=== PATIENT | male | born 1935 | race Caucasian/White ===

== ENCOUNTER 2017-02-22 13:47 | Emergency (ER) | payer OTHER ==
[~2017-02-22] VITALS: Ht 190.5 cm; Wt 108.6 kg
[~2017-02-22 13:47] MED LIST: CRD4 PO; ONDA4TAB7 SL
[2017-02-22 13:52] VITALS: TEMP 36.9; Ht 190.5 cm; Wt 108.6 kg
[2017-02-22] MEDS ORDERED: LIDOCAINE/EPINEPHRINE 1% 20 ML VIAL INFIL ONE (15:00)
--- NOTE | 2017-02-22 15:00 | EMERGENCY ROOM VISIT NOTE ---
ED Visit Note First contact with patient: 14:29 I have seen and examined this patient with Juan Galarza and generally agree with the treatment plan as discussed. Problem List Medical Problems: (1) Cerebrovasc Disease Nos Status: Chronic (2) Chest pain Status: Resolved (3) Circulatory Disease Nos Status: Chronic (4) COPD (chronic obstructive pulmonary disease) Status: Chronic (5) Dyslipidemia Status: Chronic (6) Heart disease Status: Chronic (7) Hypertension Nos Status: Chronic (8) Old Myocardial Infarct Status: Resolved (9) Squamous cell carcinoma Status: Chronic (10) Stomach ulcer Status: Chronic (11) Umbilical Hernia W Obstr Status: Resolved Current/Historical Medications Scheduled Atenolol (Tenormin), 12.5 MG PO HS Doxazosin Mesylate (Cardura *), 8 MG PO HS Simvastatin (Zocor), 20 MG PO HS Scheduled PRN Ondansetron (Zofran Odt), 4 MG SL Q6H PRN for Nausea Allergies Coded Allergies: Aspirin (Verified Adverse Reaction, Intermediate, "GI UPSET/BLEED A LONG TIME AGO", 06/19/14) Vital Signs Date Time Temp Pulse Resp B/P Pulse Ox O2 Delivery O2 Flow Rate FiO2 02/22/17 13:52 36.9 59 20 120/69 95 Room Air Departure Information Referrals Hakeem Mclaughlin M.D. (PCP) Patient Instructions My [facility]
[2017-02-22] MEDS ORDERED: DOXA-10 PO (15:25)
[2017-02-22] MEDS ORDERED: [UNRECOGNIZED DRUG - CODE] OPB (15:25)
[2017-02-22] MEDS ORDERED: FLUT0.15 NAE (15:25)
[2017-02-22 16:36] VITALS: BP 120/60; PULSE 55; O2SAT 96
--- NOTE | 2017-02-22 16:53 | EMERGENCY ROOM VISIT NOTE ---
ED Visit Note First contact with patient: 14:29 CHIEF COMPLAINT: Right upper arm lacerations HISTORY OF PRESENT ILLNESS: Patient is a 81-year-old white male who presents to emergency department for evaluation of lacerations to his right upper arm. He was sitting on a bucket, when he lost his balance and fell backwards. He struck his arm on the concrete ground, causing the lacerations described below. He apparently went to his primary care doctor's office but they were unable to perform wound repair and thus sent him to the emergency department. Bleeding has been controlled. There is minimal discomfort. His tetanus is up- to-date. REVIEW OF SYSTEMS: Review of systems as per HPI. All other systems reviewed were negative. At least 6 systems reviewed. PMH: Electronic medical records are reviewed and summarized as above/below. See Problem List. SOCIAL HISTORY: Patient lives at home with his . PHYSICAL EXAM: Vital Signs: Reviewed Nurse's notes. CONSTITUTIONAL: Patient is a pleasant, well-appearing 81-year-old white male who is awake and alert and in no acute distress. INTEGUMENTARY: There are 2 large skin tear type lacerations on the medial aspect of the right upper arm over the biceps. Total repairable laceration length is 19 cm.The edges are gaping widely apart. There is no foreign material in the wound and it looks clean. There is no active bleeding. No deep structures such as tendons or nerves are seen in the base of the wound. EMERGENCY DEPARTMENT COURSE: The patient's wounds were prepped with Betadine and draped sterilely. 1% lidocaine with epinephrine was infiltrated for local block. When adequate anesthesia was obtained, the wounds were explored thoroughly there is no evidence for foreign body. He was irrigated copiously using normal saline solution, then repaired using 5-0 nylon sutures. Patient had a few other smaller skin tears which were debrided. Antibiotic ointment and a dressing were applied. The patient tolerated the procedure well. I do not suspect fracture. Problem List Medical Problems: (1) Cerebrovasc Disease Nos Status: Chronic (2) Chest pain Status: Resolved (3) Circulatory Disease Nos Status: Chronic (4) COPD (chronic obstructive pulmonary disease) Status: Chronic (5) Dyslipidemia Status: Chronic (6) Heart disease Status: Chronic (7) Hypertension Nos Status: Chronic (8) Old Myocardial Infarct Status: Resolved (9) Squamous cell carcinoma Status: Chronic (10) Stomach ulcer Status: Chronic (11) Umbilical Hernia W Obstr Status: Resolved Current/Historical Medications Scheduled Atenolol (Tenormin), 12.5 MG PO HS Doxazosin Mesylate (Doxazosin Mesylate), 8 MG PO HS Fluticasone Propionate (Nasal) (Flonase Allergy Relief), 2 SPRAYS RUTH DAILY Ofloxacin (Otic) (Floxin Otic), 1 DROP OPB HS Simvastatin (Zocor), 20 MG PO HS Allergies Coded Allergies: Aspirin (Verified Adverse Reaction, Intermediate, "GI UPSET/BLEED A LONG TIME AGO", 06/19/14) Vital Signs Date Time Temp Pulse Resp B/P Pulse Ox O2 Delivery O2 Flow Rate FiO2 02/22/17 16:36 55 18 120/60 96 Room Air 02/22/17 13:52 36.9 59 20 120/69 95 Room Air Departure Information Impression Primary Impression: Laceration of right upper arm Referrals Hakeem Mclaughlin M.D. (PCP) Patient Instructions My [facility] Additional Instructions Keep wound clean and dry. Do not allow any crusting or dried blood to accumulate on sutures. Clean gently with mild soap and water daily. Use an antibiotic ointment for 3-4 days, then let wound dry. Suture removal in 12-14 days. Return sooner for any signs of infection (increasing redness, swelling, drainage). Ice and elevate for swelling and pain. Tylenol 1000 mg every 6 hrs for pain.
[2017-02-22] MEDS ORDERED: SIMV20TA2 PO (21:34)
[2017-02-22] MEDS ORDERED: ATEN-173 PO (21:34)
== END 2017-02-22 16:58 | disposition home or self-care (01) ==
LOC: C.EDB 13:49 → C.EDD 16:58
DX: S41.112A Laceration without foreign body of left upper arm, initial encounter (principal); W01.0XXA Fall on same level from slipping, tripping and stumbling without subsequent striking against object, initial encounter; I10 Essential (primary) hypertension; E78.5 Hyperlipidemia, unspecified; J44.9 Chronic obstructive pulmonary disease, unspecified; I51.9 Heart disease, unspecified; I25.2 Old myocardial infarction; Z86.73 Personal history of transient ischemic attack (TIA), and cerebral infarction without residual deficits; Z87.19 Personal history of other diseases of the digestive system; Z79.899 Other long term (current) drug therapy; Z88.6 Allergy status to analgesic agent

== ENCOUNTER 2017-10-27 10:43 | Emergency (ER) | payer OTHER ==
[~2017-10-27] VITALS: Ht 190.5 cm; Wt 110.3 kg
[~2017-10-27 10:43] MED LIST changes: +ATEN-173 PO; -CRD4 PO; +DOXA-10 PO; +FLUT0.15 NAE; -ONDA4TAB7 SL; +SIMV20TA2 PO; +[UNRECOGNIZED DRUG - CODE] OPB
[2017-10-27 10:48] VITALS: TEMP 36.3; Ht 190.5 cm; Wt 110.3 kg
--- NOTE | 2017-10-27 11:56 | EMERGENCY ROOM VISIT NOTE ---
History Report prepared by Cristiane: Sanaz Tomlin Under the Supervision of: Dr. Radha Cardona D.O. First contact with patient: 11:47 Chief Complaint: ABDOMINAL PAIN Stated Complaint: ABD PAIN Nursing Triage Summary: lower abdominal pain started about 1hr ago also having diarrhea started 1 hr ago as well History of Present Illness The patient is an 82 year old male who presents to the Emergency Room with complaints of episodic abdominal pain one hour [employer]. He notes that sharp abdominal pain began when he went to the bathroom this morning. He rated his pain a 6/10 in severity. He notes his first bowel movement was normal, then he started to have diarrhea. He notes three episodes of diarrhea. He notes the abdominal pain went away after the last episode of diarrhea. He went to his PCP , though they could not see him and he was advised to come to the ED. He notes that he has had more food than normal due to the holiday. He denies any food or medication have caused him any diarrhea. He denies any recent use of antibiotics. He notes previous abdominal surgery for his belly button. He notes chronic back pain and arthritis. He has received his flu shot this year. He denies any fevers, chills, nausea, hematochezia, melena, diaphoresis, vomiting, and abdominal distention. Source of History: patient Onset: one hour [employer] Position: abdomen Symptom Intensity: 6/10 Quality: sharp Timing: other (episodic ) Associated Symptoms: + diarrhea (three episodes ), No fevers, No chills, No diaphoresis, No nausea, No vomiting, No melena, No hematochezia Note: He denies any abdominal distention. Review of Systems See HPI for pertinent positives & negatives. A total of 10 systems reviewed and were otherwise negative. Past Medical & Surgical Medical Problems: (1) Cerebrovasc Disease Nos (2) Chest pain (3) Circulatory Disease Nos (4) COPD (chronic obstructive pulmonary disease) (5) Dyslipidemia (6) Heart disease (7) Hernia (8) Hypertension Nos (9) Old Myocardial Infarct (10) Squamous cell carcinoma (11) Stomach ulcer (12) Umbilical Hernia W Obstr Family History FHx: cancer Heart disease Hypertension Social History Smoking Status: Former Smoker Smokeless Tobacco Use: No Alcohol Use: occasionally Marital Status: Housing Status: lives with significant other Occupation Status: retired Current/Historical Medications Scheduled Doxazosin Mesylate (Doxazosin Mesylate), 8 MG PO HS Fluticasone Propionate (Nasal) (Flonase Allergy Relief), 2 SPRAYS RUTH DAILY Ofloxacin (Otic) (Floxin Otic), 1 DROP OPB HS Simvastatin (Zocor), 20 MG PO HS Allergies Coded Allergies: Aspirin (Verified Adverse Reaction, Intermediate, "GI UPSET/BLEED A LONG TIME AGO", 06/19/14) Physical Exam Vital Signs Date Time Temp Pulse Resp B/P (MAP) Pulse Ox O2 Delivery O2 Flow Rate FiO2 10/27/17 15:10 80 18 134/94 99 10/27/17 15:00 80 18 134/94 99 Room Air 10/27/17 13:20 62 16 121/75 98 Room Air 10/27/17 11:34 58 16 119/78 97 Room Air 10/27/17 10:48 36.3 76 18 184/88 97 Room Air Physical Exam GENERAL: alert, well appearing, well nourished, no distress, non-toxic EYE EXAM: normal conjunctiva, PERRL and EOM's grossly intact OROPHARYNX: no exudate, no erythema, lips, buccal mucosa, and tongue normal and mucous membranes are moist NECK: supple, no nuchal rigidity, no adenopathy, non-tender LUNGS: Clear to auscultation. Normal chest wall mechanics HEART: no murmurs, S1 normal and S2 normal ABDOMEN: abdomen soft, non-tender, normo-active bowel sounds, no masses, no rebound or guarding. BACK: Back is symmetrical on inspection and there is no deformity, no midline tenderness, no CVA tenderness. SKIN: no rashes and no bruising UPPER EXTREMITIES: upper extremities are grossly normal. LOWER EXTREMITIES: No pitting edema. NEURO EXAM: Normal sensorium, cranial nerves II-XII grossly intact, normal speech, no gross weakness of arms, no gross weakness of legs. Medical Decision & Procedures ER Provider Diagnostic Interpretation: Radiology results have been interpreted by the radiologist and reviewed by me. ABDOMEN 2VIEW W/PA CHEST RTN CLINICAL HISTORY: 82 years-old Male presenting with abd pain, diarrhea. TECHNIQUE: PA view of the chest and supine and upright views of the abdomen were obtained. COMPARISON: 12/29/2014. FINDINGS: Atherosclerosis of aortic arch. Cardiac silhouette enlarged. Pleural thickening along the bilateral lateral pleura possibly from prominent extrapleural fat. Lungs and pleural spaces otherwise clear. Nonobstructive bowel gas pattern. No gross pneumoperitoneum. Cholelithiasis. Calcification also projects over the right kidney suggestive of a calculus. Multiple pelvic phleboliths. Degenerative changes of the spine with scoliotic curvature. IMPRESSION: 1. No acute cardiopulmonary disease. 2. Cholelithiasis. 3. No bowel obstruction or free air. Electronically signed by: Mervin Singh M.D. 10/27/2017 1:42 PM Dictated Date/Time: 10/27/2017 1:39 PM Laboratory Results 10/27/17 12:10 Red Blood Count 4.16, Mean Corpuscular Volume 99.8, Mean Corpuscular Hemoglobin 32.5, Mean Corpuscular Hemoglobin Concent 32.5, Mean Platelet Volume 11.1, Neutrophils (%) (Auto) 69.5, Lymphocytes (%) (Auto) 20.3, Monocytes (%) (Auto) 7.5, Eosinophils (%) (Auto) 2.3, Basophils (%) (Auto) 0.2, Neutrophils # (Auto) 3.90, Lymphocytes # (Auto) 1.14, Monocytes # (Auto) 0.42, Eosinophils # (Auto) 0.13, Basophils # (Auto) 0.01 10/27/17 12:10 Test 10/27/17 12:10 10/27/17 12:30 10/27/17 13:25 White Blood Count 5.61 K/uL (4.8-10.8) Red Blood Count 4.16 M/uL (4.7-6.1) Hemoglobin 13.5 g/dL (14.0-18.0) Hematocrit 41.5 % (42-52) Mean Corpuscular Volume 99.8 fL (80-100) Mean Corpuscular Hemoglobin 32.5 pg (25-34) Mean Corpuscular Hemoglobin Concent 32.5 g/dl (32-36) Platelet Count 119 K/uL (130-400) Mean Platelet Volume 11.1 fL (7.4-10.4) Neutrophils (%) (Auto) 69.5 % Lymphocytes (%) (Auto) 20.3 % Monocytes (%) (Auto) 7.5 % Eosinophils (%) (Auto) 2.3 % Basophils (%) (Auto) 0.2 % Neutrophils # (Auto) 3.90 K/uL (1.4-6.5) Lymphocytes # (Auto) 1.14 K/uL (1.2-3.4) Monocytes # (Auto) 0.42 K/uL (0.11-0.59) Eosinophils # (Auto) 0.13 K/uL (0-0.5) Basophils # (Auto) 0.01 K/uL (0-0.2) RDW Standard Deviation 48.0 fL (36.4-46.3) RDW Coefficient of Variation 13.2 % (11.5-14.5) Immature Granulocyte % (Auto) 0.2 % Immature Granulocyte # (Auto) 0.01 K/uL (0.00-0.02) Anion Gap 4.0 mmol/L (3-11) Est Creatinine Clear Calc Drug Dose 65.8 ml/min Estimated GFR () 68.5 Estimated GFR (Non- 59.1 BUN/Creatinine Ratio 16.0 (10-20) Calcium Level 8.7 mg/dl (8.5-10.1) Total Bilirubin 0.3 mg/dl (0.2-1) Aspartate Amino Transf (AST/SGOT) 25 U/L (15-37) Alanine Aminotransferase (ALT/SGPT) 22 U/L (12-78) Alkaline Phosphatase 84 U/L (45-117) Troponin I 0.017 ng/ml (0-0.045) Total Protein 6.7 gm/dl (6.4-8.2) Albumin 3.4 gm/dl (3.4-5.0) Globulin 3.3 gm/dl (2.5-4.0) Albumin/Globulin Ratio 1.0 (0.9-2) Lipase 169 U/L (73-393) Bedside Lactic Acid Venous 0.71 mmol/L (0.90-1.70) Urine Color YELLOW Urine Appearance CLEAR (CLEAR) Urine pH 5.0 (4.5-7.5) Urine Specific [place] 1.025 (1.000-1.030) Urine Protein NEG (NEG) Urine Glucose (UA) NEG (NEG) Urine Ketones NEG (NEG) Urine Occult Blood NEG (NEG) Urine Nitrite NEG (NEG) Urine Bilirubin NEG (NEG) Urine Urobilinogen NEG (NEG) Urine Leukocyte Esterase NEG (NEG) Laboratory results per my review. ECG Indication: abdominal pain Rate (beats per minute): 62 Rhythm: sinus rhythm Findings: T-wave inversion (In L1, aVL, V5, and V6), other (Normal axis. Normal intervals. ) Change: T wave inversion is new when compared to 12/29/2014 ED Course 1149: The patient was evaluated in room C3. A complete history and physical exam was performed. 1420: I reassessed the patient at this time. He does not have any recurrent abdominal pain or diarrhea. He is feeling better and resting comfortably. I discussed the results and treatment plan with the patient. I answered all pertaining questions that he had. He expressed understanding and verbalized agreement. The patient will be discharged home. Medical Decision Prior records/ancillary studies reviewed. Triage Nursing notes reviewed. The patient's history was concerning for abdominal pain. Differential diagnosis: Etiologies such as appendicitis, diverticulitis, PUD, biliary pathology, UTI, pancreatitis, obstruction, mesenteric ischemia, aortic pathology, infections, inflammatory bowel disease, renal colic, as well as others were entertained. Patient well-appearing here, no recurrent episodes of lower abdominal pain or diarrhea. Troponin added as precaution given inverted T waves noted on EKG that were new compared to prior EKG from 2 years ago. Discussed this with the patient at bedside, he was given a copy of his EKG at discharge and advised to follow-up with his family doctor not only that his symptoms today but also about his EKG. Discussed he may need additional cardiology evaluation. No recent risk factors to otherwise suggest C. difficile, doubt ischemic colitis, feel more likely related to change in diet over holidays. Patient had no recurrence of any symptoms, stable vital signs throughout, no fevers or chills. Doubt bowel obstruction, perforation, GI bleed, colitis, volvulus, vascular pathology, occult pathology. Patient tolerated. Bedside and related with a steady gait, he and were agreeable with plan. Discussed symptoms to watch and return for, he verbalized understanding. Medication Reconcilliation Current Medication List: was personally reviewed by me Blood Pressure Screening Patient's blood pressure: Normal blood pressure Impression Primary Impression: Lower abdominal pain, unspecified Additional Impression: Diarrhea Scribe Attestation The scribe's documentation has been prepared under my direction and personally reviewed by me in its entirety. I confirm that the note above accurately reflects all work, treatment, procedures, and medical decision making performed by me. Departure Information Dispostion Home / Self-Care Referrals Hakeem Mclaughlin M.D. (PCP) Forms HOME CARE DOCUMENTATION FORM, IMPORTANT VISIT INFORMATION Patient Instructions Abdominal Pain - [facility], Diarrhea, My [facility] Additional Instructions Please follow up with your family doctor. Please discuss with them your recent symptoms. Please take the copy of your EKG with you as well to compared to prior EKGs. If you have any recurrent episodes of abdominal pain, recurrent or persistent diarrhea, noticed black or bloody stools, develop vomiting, fevers or chills, dizziness, or you have any other new concerns, please return the emergency room. Problem Qualifiers Additional Impression: Diarrhea Diarrhea type: unspecified type Qualified Codes: R19.7 - Diarrhea, unspecified
[2017-10-27 12:44] LABS: BASO % 0.2 %; BASO ABS # 0.01 K/uL (0-0.2); COMPLETE YES; EOS % 2.3 %; HEMATOCRIT 41.5 % (42-52); IG% 0.2 %; LYMPH % 20.3 %; LYMPH ABS # 1.14 K/uL (1.2-3.4); MEAN CELL VOLUME 99.8 fL (80-100); MEAN CORPUSCULAR HEMOGLOBIN 32.5 pg (25-34); MEAN CORPUSCULAR HGB CONC 32.5 g/dl (32-36); MEAN PLATELET VOLUME 11.1 fL (7.4-10.4); MONO % 7.5 %; NEUT % 69.5 %; PLATELET COUNT 119 K/uL (130-400); RED BLOOD COUNT 4.16 M/uL (4.7-6.1); WHITE BLOOD COUNT 5.61 K/uL (4.8-10.8)
[2017-10-27 13:01] LABS: CALCIUM 8.7 mg/dl (8.5-10.1); CREATININE 1.14 mg/dl (0.60-1.40)
--- NOTE | 2017-10-27 13:43 | DIAGNOSTIC IMAGING REPORT ---
ABDOMEN 2VIEW W/PA CHEST RTN CLINICAL HISTORY: 82 years-old Male presenting with abd pain, diarrhea. TECHNIQUE: PA view of the chest and supine and upright views of the abdomen were obtained. COMPARISON: 12/29/2014. FINDINGS: Atherosclerosis of aortic arch. Cardiac silhouette enlarged. Pleural thickening along the bilateral lateral pleura possibly from prominent extrapleural fat. Lungs and pleural spaces otherwise clear. Nonobstructive bowel gas pattern. No gross pneumoperitoneum. Cholelithiasis. Calcification also projects over the right kidney suggestive of a calculus. Multiple pelvic phleboliths. Degenerative changes of the spine with scoliotic curvature. IMPRESSION: 1. No acute cardiopulmonary disease. 2. Cholelithiasis. 3. No bowel obstruction or free air. Electronically signed by: Mervin Singh M.D. 10/27/2017 1:42 PM Dictated Date/Time: 10/27/2017 1:39 PM
[2017-10-27 13:56] LABS: URINE APPEARANCE CLEAR (CLEAR); URINE BILIRUBIN NEG (NEG); URINE COLOR YELLOW; URINE NITRITE NEG (NEG); URINE SPECIFIC GRAVITY 1.025 (1.000-1.030); UROBILINOGEN NEG (NEG); ZZUR CULT IF INDIC CLEAN CATCH NO
[2017-10-27 14:05] LABS: MANUAL MICROSCOPIC REQUIRED? NO; REVIEW REQ? NO
[2017-10-27 15:10] VITALS: BP 134/94; PULSE 80; O2SAT 99
== END 2017-10-27 15:10 | disposition home or self-care (01) ==
LOC: C.EDB 10:44 → C.EDC 15:10
DX: R10.30 Lower abdominal pain, unspecified (principal); R19.7 Diarrhea, unspecified; R94.31 Abnormal electrocardiogram [ECG] [EKG]; M54.9 Dorsalgia, unspecified; G89.29 Other chronic pain; M19.90 Unspecified osteoarthritis, unspecified site; I67.9 Cerebrovascular disease, unspecified; I99.8 Other disorder of circulatory system; J44.9 Chronic obstructive pulmonary disease, unspecified; E78.5 Hyperlipidemia, unspecified; I10 Essential (primary) hypertension; I25.2 Old myocardial infarction; Z85.828 Personal history of other malignant neoplasm of skin; Z87.891 Personal history of nicotine dependence; Z82.49 Family history of ischemic heart disease and other diseases of the circulatory system

== ENCOUNTER 2022-05-01 09:03 | Observation (INO) ==
--- NOTE | 2022-05-01 09:07 | Emergency Department Note ---
Impression & Plan Weakness, Hypoxia, COPD (chronic obstructive pulmonary disease), Leukopenia, Thrombocytopenia ED Provider Note NAME: BRENDA SEALS AGE: 86 SEX: M : 1935 ARRIVES VIA: Ambulance INFORMANT: Patient, ED PROVIDER(S): Clem Wright MD Chief Complaint: Weakness HPI: Patient presents from home due to concern of generalized weakness and was unable to get up and out of bed. The patient believes her symptoms began this morning. No other reported findings or concerns per EMS. Patient does live at home with his . Patient denies any recent falls or trauma and denies any head neck chest back or abdominal pain. Patient does state that he has not been using the bathroom as well. The patient denies any cough or fever. 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 The patient denies any cough. Patient denies any abdominal pain or nausea vomiting. No exacerbating or remitting factors. ROS: See HPI for pertinent positives and negatives. A total of 10 systems were reviewed and otherwise negative. Past medical history: See below Surgical history: See below Social history: See below Physical Exam: GENERAL: Fatigued in appearance, NAD, wearing glasses, wearing a mask, non- toxic. EYE EXAM: Normal conjunctiva. PERRL, no anisocoria and EOM's grossly intact w/o pain. OROPHARYNX: Dry mucus membranes. Grossly normal dentition. NECK: Supple, no nuchal rigidity, no adenopathy, non-tender. No signs of meningismus. LUNGS: Clear to auscultation. Normal chest wall mechanics. HEART: NSR, no MRG. ABDOMEN: Abdomen soft, non-tender, normo-active bowel sounds, no masses, no rebound or guarding. BACK: No CVA TTP. SKIN: No rashes and no bruising. UPPER EXTREMITIES: Upper extremities are grossly normal. Decreased range of motion left shoulder. No obvious deformity or TTP. LOWER EXTREMITIES: Grossly normal, no edema. NEURO EXAM: A&O x3, cranial nerves II-XII grossly intact, dysarthria present, all 4 extremities but with decreased range of motion of the left shoulder but is neurovascular intact at the elbow and distally. No sensory deficits. Differential diagnoses: Infection, dehydration, metabolic abnormality, hypo/hyperglycemia, electrolyte disturbance, anemia, hypoxia, cardiac sources, intracerebral event, toxicologic, neurologic, as well as other pathologies. Course: Patient was seen and evaluated the bedside. Full history physical exam was performed. EKG interpreted by me Sinus with occasional PVC, rate of 85, normal intervals, left axis deviation, T wave version high lateral leads. Imaging Studies: See Below Cardiac monitoring: An order was placed for continuous cardiac monitoring. The monitor shows a rate of 82 with sinus rhythm. MDM: Patient presented due to concern for weakness and was noted to be hypoxic in the high 80s. The patient otherwise had clear chest sounds. No obvious signs of volume overload. Patient clinically appears to be dry. The patient does have dysarthria but this is a chronic symptom. Blood work was obtained along with a CT of the head and chest x-ray. The patient's blood work does show mild leukopenia and thrombocytopenia. H&H is normal. Kidney function unremarkable but with prerenal azotemia. The patient did receive IV fluids. Troponin is elevated but may be demand. The patient brown s have T wave version in the high lateral leads with the patient denies any chest pains or shortness of breath and patient has no ST elevations at this time. TSH is low but free T4 is normal. Urinalysis with no signs of obvious infection. CT of the head is negative. Chest x-ray shows atelectasis but without any obvious consolidation. Given the patient's more profound weakness and associated hypoxia I did speak the on-call hospitalist Fely Last PA-C and the patient was admitted by the medicine service Dr. Izaguirre. Critical Care: I have personally spent 35 minutes of critical care time in direct management of this patient. This includes bedside care, interpretation of diagnostic studies, and testing, discussion with consultants, patient, and family members, and other require inpatient management activities. This 35 minutes is in excess of all separately billable procedures. Past Med/Surg History Medical History BPH (benign prostatic hyperplasia) Cerebrovascular disease, unspecified COPD (chronic obstructive pulmonary disease) Dyslipidemia Heart disease HTN (hypertension) Old myocardial infarct Squamous cell carcinoma Stomach ulcer Umbilical hernia with obstruction Unspecified circulatory system disorder Surgical History History of hernia repair Family History Father Prostate cancer Mother Stroke Social History Smoking Status: Former smoker Hx Alcohol Use: No Hx Substance Use: No Preferred Language: Latvian Current Living Situation: Spouse current occupational status: retired Feels Safe at Home: Yes Allergies Allergies Allergy/AdvReac Type Severity Reaction Status Date / Time aspirin AdvReac Intermediate "GI Verified 04/05/22 10:43 UPSET/BLEED A LONG TIME AGO" Home Meds Home Medications Medication Instructions Recorded Confirmed doxazosin 8 mg tablet 8 mg PO HS 01/01/19 05/01/22 olopatadine 0.1 % eye drops 1 drp OPB BID 01/01/19 05/01/22 polyethylene glycol 3350 17 17 g PO DAILY 01/01/19 05/01/22 gram/dose oral powder simvastatin 20 mg tablet 20 mg PO HS 01/01/19 05/01/22 finasteride 5 mg tablet 5 mg PO DAILY 07/22/21 05/01/22 Results & Data (ED) Vital Signs Vital Signs - 24 hr 05/01/22 08:54 05/01/22 09:14 05/01/22 09:16 Temperature 36.4 C L Temperature Source Oral Pulse Rate 80 Pulse Rate from SpO2 Sensor Respiratory Rate 20 Respiratory Effort / Characteristics Non-Labored Respiratory Depth Normal Blood Pressure 127/73 Blood Pressure Mean 91 Pulse Oximetry 94 88 L 88 L Oxygen Delivery Method Room Air Room Air Room Air Sepsis Recent Fever Within 48 Hours No Sepsis New/Unexplained Change in Mental Status No Sepsis Action Taken by Nursing No Action Required Oxygen Flow Rate - Titration 2 Pulse Oximetry Post Tiitration 94 05/01/22 09:19 05/01/22 09:20 05/01/22 09:30 Temperature Temperature Source Pulse Rate 80 75 78 Pulse Rate from SpO2 Sensor 80 73 Respiratory Rate 25 H 22 27 H Respiratory Effort / Characteristics Respiratory Depth Blood Pressure Blood Pressure Mean Pulse Oximetry 88 L 94 Oxygen Delivery Method Sepsis Recent Fever Within 48 Hours Sepsis New/Unexplained Change in Mental Status Sepsis Action Taken by Nursing Oxygen Flow Rate - Titration Pulse Oximetry Post Tiitration 05/01/22 09:40 05/01/22 09:50 05/01/22 10:00 Temperature Temperature Source Pulse Rate 78 74 67 Pulse Rate from SpO2 Sensor 79 75 61 Respiratory Rate 25 H 24 23 Respiratory Effort / Characteristics Respiratory Depth Blood Pressure 115/61 130/65 Blood Pressure Mean 79 86 Pulse Oximetry 95 96 97 Oxygen Delivery Method Sepsis Recent Fever Within 48 Hours Sepsis New/Unexplained Change in Mental Status Sepsis Action Taken by Nursing Oxygen Flow Rate - Titration Pulse Oximetry Post Tiitration 05/01/22 10:10 05/01/22 10:20 05/01/22 10:30 Temperature Temperature Source Pulse Rate 79 72 72 Pulse Rate from SpO2 Sensor 72 72 73 Respiratory Rate 17 22 22 Respiratory Effort / Characteristics Respiratory Depth Blood Pressure 126/73 Blood Pressure Mean 90 Pulse Oximetry 97 98 98 Oxygen Delivery Method Sepsis Recent Fever Within 48 Hours Sepsis New/Unexplained Change in Mental Status Sepsis Action Taken by Nursing Oxygen Flow Rate - Titration Pulse Oximetry Post Tiitration 05/01/22 10:40 05/01/22 11:06 05/01/22 11:10 Temperature Temperature Source Pulse Rate 70 74 72 Pulse Rate from SpO2 Sensor 65 Respiratory Rate 23 23 25 H Respiratory Effort / Characteristics Respiratory Depth Blood Pressure Blood Pressure Mean Pulse Oximetry 97 Oxygen Delivery Method Sepsis Recent Fever Within 48 Hours Sepsis New/Unexplained Change in Mental Status Sepsis Action Taken by Nursing Oxygen Flow Rate - Titration Pulse Oximetry Post Tiitration 05/01/22 11:20 05/01/22 11:30 05/01/22 11:40 Temperature Temperature Source Pulse Rate 69 71 70 Pulse Rate from SpO2 Sensor Respiratory Rate 25 H 25 H 23 Respiratory Effort / Characteristics Respiratory Depth Blood Pressure 116/72 Blood Pressure Mean 86 Pulse Oximetry Oxygen Delivery Method Sepsis Recent Fever Within 48 Hours Sepsis New/Unexplained Change in Mental Status Sepsis Action Taken by Nursing Oxygen Flow Rate - Titration Pulse Oximetry Post Tiitration 05/01/22 11:50 05/01/22 12:00 05/01/22 12:10 Temperature Temperature Source Pulse Rate 93 H 79 72 Pulse Rate from SpO2 Sensor Respiratory Rate 29 H 22 25 H Respiratory Effort / Characteristics Respiratory Depth Blood Pressure 106/84 Blood Pressure Mean 91 Pulse Oximetry Oxygen Delivery Method Sepsis Recent Fever Within 48 Hours Sepsis New/Unexplained Change in Mental Status Sepsis Action Taken by Nursing Oxygen Flow Rate - Titration Pulse Oximetry Post Tiitration 05/01/22 12:20 05/01/22 12:30 05/01/22 12:31 Temperature Temperature Source Pulse Rate 76 79 76 Pulse Rate from SpO2 Sensor Respiratory Rate 24 26 H 29 H Respiratory Effort / Characteristics Respiratory Depth Blood Pressure 133/90 Blood Pressure Mean 104 Pulse Oximetry Oxygen Delivery Method Sepsis Recent Fever Within 48 Hours Sepsis New/Unexplained Change in Mental Status Sepsis Action Taken by Nursing Oxygen Flow Rate - Titration Pulse Oximetry Post Tiitration 05/01/22 12:40 05/01/22 12:50 05/01/22 13:00 Temperature Temperature Source Pulse Rate 75 78 78 Pulse Rate from SpO2 Sensor 70 67 65 Respiratory Rate 22 23 26 H Respiratory Effort / Characteristics Respiratory Depth Blood Pressure 141/72 H Blood Pressure Mean 95 Pulse Oximetry 97 96 98 Oxygen Delivery Method Sepsis Recent Fever Within 48 Hours Sepsis New/Unexplained Change in Mental Status Sepsis Action Taken by Nursing Oxygen Flow Rate - Titration Pulse Oximetry Post Tiitration Home Medications Current Medication List: was personally reviewed by me Laboratory Data Attestation: I reviewed the patient's lab results. Result diagrams: 05/01/22 09:38 05/01/22 09:38 Lab Results 05/01/22 05/01/22 05/01/22 Range/Units 09:15 09:38 09:38 WBC 4.15 L (4.8-10.8) K/uL RBC 4.43 L (4.7-6.1) M/uL Hgb 14.1 (14.0-18.0) g/dL Hct 43.5 (42-52) % MCV 98.2 (80-100) fL MCH 31.8 (25-34) pg MCHC 32.4 (32-36) g/dL RDW Std Deviation 47.2 H (36.4-46.3) fL RDW Coeff of [place] 13.0 (11.5-14.5) % Plt Count 109 L (130-400) K/uL MPV 11.7 H (7.4-10.4) fL Immature Gran % (Auto) 0.2 % Neut % (Auto) 76.7 % Lymph % (Auto) 16.4 % [place] % (Auto) 6.5 % Eos % (Auto) 0.0 % Baso % (Auto) 0.2 % Neut # (Auto) 3.18 (1.4-6.5) K/uL Lymph # (Auto) 0.68 L (1.2-3.4) K/uL [place] # (Auto) 0.27 (0.11-0.59) K/uL Eos # (Auto) 0.00 (0-0.5) K/uL Baso # (Auto) 0.01 (0-0.2) K/uL Immature Gran # (Auto) 0.01 (0.00-0.02) K/uL D-Dimer (0-500) ug/L FEU Sodium 139 (136-145) mmol/L Potassium 3.9 (3.5-5.1) mmol/L Chloride 107 (98-107) mmol/L Carbon Dioxide 26 (21-32) mmol/L Anion Gap 6 (3-11) BUN 26 H (6-23) mg/dl Creatinine 1.22 (0.6-1.4) mg/dl Est Cr Clr Drug Dosing Not Reportable Est GFR ( Amer) 61.4 ml/min Est GFR (Non-Af Amer) 53.0 ml/min BUN/Creatinine Ratio 21.3 H (10-20) Glucose 103 H (70-99(Fasting)) mg/dl Calcium 9.6 (8.5-10.1) mg/dl Magnesium 1.8 (1.7-2.4) mg/dl Total Bilirubin 0.6 (0.2-1.0) mg/dl AST 21 (13-39) U/L ALT 13 (7-52) U/L Alkaline Phosphatase 54 (34-104) U/L Troponin I High Sens 31.4 H D (0-20) pg/ml Total Protein 6.8 (6.0-8.3) gm/dl Albumin 3.7 (3.4-5.0) gm/dl Globulin 3.1 (2.5-4.0) gm/dl Albumin/Globulin Ratio 1.2 (0.9-2) TSH (0.300-4.500) uIu/ml Free T4 (0.61-1.60) ng/dl SARS-CoV-2, RNA, NAAT NEGATIVE (NEGATIVE) 05/01/22 05/01/22 Range/Units 09:38 09:38 WBC (4.8-10.8) K/uL RBC (4.7-6.1) M/uL Hgb (14.0-18.0) g/dL Hct (42-52) % MCV (80-100) fL MCH (25-34) pg MCHC (32-36) g/dL RDW Std Deviation (36.4-46.3) fL RDW Coeff of [place] (11.5-14.5) % Plt Count (130-400) K/uL MPV (7.4-10.4) fL Immature Gran % (Auto) % Neut % (Auto) % Lymph % (Auto) % [place] % (Auto) % Eos % (Auto) % Baso % (Auto) % Neut # (Auto) (1.4-6.5) K/uL Lymph # (Auto) (1.2-3.4) K/uL [place] # (Auto) (0.11-0.59) K/uL Eos # (Auto) (0-0.5) K/uL Baso # (Auto) (0-0.2) K/uL Immature Gran # (Auto) (0.00-0.02) K/uL D-Dimer 6720 H* (0-500) ug/L FEU Sodium (136-145) mmol/L Potassium (3.5-5.1) mmol/L Chloride (98-107) mmol/L Carbon Dioxide (21-32) mmol/L Anion Gap (3-11) BUN (6-23) mg/dl Creatinine (0.6-1.4) mg/dl Est Cr Clr Drug Dosing Est GFR ( Amer) ml/min Est GFR (Non-Af Amer) ml/min BUN/Creatinine Ratio (10-20) Glucose (70-99(Fasting)) mg/dl Calcium (8.5-10.1) mg/dl Magnesium (1.7-2.4) mg/dl Total Bilirubin (0.2-1.0) mg/dl AST (13-39) U/L ALT (7-52) U/L Alkaline Phosphatase (34-104) U/L Troponin I High Sens (0-20) pg/ml Total Protein (6.0-8.3) gm/dl Albumin (3.4-5.0) gm/dl Globulin (2.5-4.0) gm/dl Albumin/Globulin Ratio (0.9-2) TSH 0.270 L (0.300-4.500) uIu/ml Free T4 0.91 (0.61-1.60) ng/dl SARS-CoV-2, RNA, NAAT (NEGATIVE) Administered Medications Discontinued Medications Sodium Chloride (Nss 1000ml) 1,000 mls @ 999 mls/hr IV .Q1H1M SILVANO Stop: 05/01/22 10:15 Last Admin: 05/01/22 09:43 Dose: 999 mls/hr Documented by: [id number] Imaging Data Radiologist's Impression: Chest X-Ray 05/01/22 09:14 XR chest 1V portable CLINICAL HISTORY: weakness TECHNIQUE: Single frontal radiograph of the chest was obtained. Comparison: Comparison is made to chest radiograph 04/05/2022 FINDINGS: No lines and tubes are seen. Calcified aortic knob is seen. Cardiomegaly is again noted. Atelectasis is at the right lung base. No evidence of pleural effusion or pneumothorax. IMPRESSION: Atelectasis without airspace opacities. ACT 112: Negative or not required by law. Electronically signed by: Damien Amezcua M.D. 05/01/2022 10:[address] 05/01/22 10:07 CT SCAN OF THE BRAIN WITHOUT IV CONTRAST CLINICAL HISTORY: Generalized weakness. COMPARISON STUDY: CT of the brain dated 04/05/2022. TECHNIQUE: Unenhanced axial CT scan of the brain is performed from the vertex to the skull base. A dose lowering technique was utilized adhering to the principles of ALARA. CT DOSE: 894.57 mGycm FINDINGS: Brain parenchyma: There is age-related involutional change noting mild subcortical and periventricular microangiopathic disease. There is no hemorrhage, mass effect, or evidence of acute territorial ischemia by CT criteria. Gomez-white matter differentiation is preserved. No extra-axial fluid collection is seen. Ventricles, sulci, cisterns: Prominent secondary to involutional change. Intracranial vasculature: There is atherosclerotic calcification of the cavernous carotid and vertebral arteries. Calvarium: Unremarkable. Sinuses and mastoids: The visualized paranasal sinuses are clear. The mastoid air cells are well pneumatized. Orbits: The bony orbits are grossly intact. There are bilateral ocular lens implants. IMPRESSION: There is no hemorrhage, mass effect, or evidence of acute territorial ischemia by CT criteria. ACT 112: Negative or not required by law. Electronically signed by: Prince Hogue M.D. 05/01/2022 11:10 AM Discharge Plan Visit Data Chief Complaint: Weakness Stated Complaint: weakness ED Provider: Clem Wright Discharge Problem: Weakness, Hypoxia, COPD (chronic obstructive pulmonary disease), Leukopenia, Thrombocytopenia Patient Disposition: Admitted As Inpatient Discharge Instructions Interventions: ED Discharge Assessment Last Done: 05/01/22 14:52
[2022-05-01] MEDS ORDERED: SODIUM CHLORIDE 0.9% 1000ML 1,000 ML IV SCH (09:15)
[2022-05-01 09:58] LABS: Basophils # (auto) 0.01 K/uL (0-0.2); Basophils % (auto) 0.2 %; Hematocrit (blood only) 43.5 % (42-52); Hemoglobin 14.1 g/dL (14.0-18.0); Immature Granulocytes # (auto) 0.01 K/uL (0.00-0.02); Immature Granulocytes % (auto) 0.2 %; Lymphocytes # (auto) 0.68 K/uL (1.2-3.4); Lymphocytes % (auto) 16.4 %; Mean Corpuscular Hemoglobin 31.8 pg (25-34); Mean Corpuscular Hgb Conc 32.4 g/dL (32-36); Mean Corpuscular Volume 98.2 fL (80-100); Mean Platelet Volume 11.7 fL (7.4-10.4); Monocytes # (auto) 0.27 K/uL (0.11-0.59); Monocytes % (auto) 6.5 %; Neutrophils # (auto) 3.18 K/uL (1.4-6.5); Neutrophils % (auto) 76.7 %; Platelet Count 109 K/uL (130-400); RDW Standard Deviation 47.2 fL (36.4-46.3); Red Blood Count 4.43 M/uL (4.7-6.1); White Blood Count 4.15 K/uL (4.8-10.8)
[2022-05-01 10:20] LABS: Troponin I High Sensitivity 31.4 pg/ml (0-20)
[2022-05-01 10:27] LABS: Alanine Aminotransferase 13 U/L (7-52); Albumin Globulin Ratio 1.2 (0.9-2); Albumin Level 3.7 gm/dl (3.4-5.0); Alkaline Phosphatase 54 U/L (34-104); Anion Gap 6 (3-11); Aspartate Aminotransferase 21 U/L (13-39); BUN Creatinine Ratio 21.3 (10-20); Bilirubin,Total 0.6 mg/dl (0.2-1.0); Blood Urea Nitrogen 26 mg/dl (6-23); Calcium 9.6 mg/dl (8.5-10.1); Carbon Dioxide 26 mmol/L (21-32); Chloride 107 mmol/L (98-107); Est GFR (African American) 61.4 ml/min; Globulin 3.1 gm/dl (2.5-4.0); Glucose 103 mg/dl (70-99(Fasting)); Magnesium 1.8 mg/dl (1.7-2.4); Potassium 3.9 mmol/L (3.5-5.1); Sodium 139 mmol/L (136-145); Total Protein 6.8 gm/dl (6.0-8.3)
[2022-05-01 10:29] LABS: Thyroid Stimulating Hormone 0.27 uIu/ml (0.300-4.500)
--- NOTE | 2022-05-01 10:29 | Electrocardiogram Report ---
Test Reason : Blood Pressure : / mmHG Vent. Rate : 085 BPM Atrial Rate : 085 BPM P-R Int : 164 ms QRS Dur : 094 ms QT Int : 356 ms P-R-T Axes : 035 -34 114 degrees QTc Int : 423 ms Sinus rhythm with occasional Premature ventricular complexes Left atrial enlargement Left ventricular hypertrophy with repolarization abnormality Abnormal ECG When compared with ECG of 05-APR-2022 08:27, Premature ventricular complexes are now Present Confirmed by Leo Fulton ([id number]) on 05/01/2022 10:28:53 AM Referred By: Confirmed By:Leo Fulton
--- NOTE | 2022-05-01 10:43 | XRay Report ---
XR chest 1V portable CLINICAL HISTORY: weakness TECHNIQUE: Single frontal radiograph of the chest was obtained. Comparison: Comparison is made to chest radiograph 04/05/2022 FINDINGS: No lines and tubes are seen. Calcified aortic knob is seen. Cardiomegaly is again noted. Atelectasis is at the right lung base. No evidence of pleural effusion or pneumothorax. IMPRESSION: Atelectasis without airspace opacities. ACT 112: Negative or not required by law. Electronically signed by: Damien Amezcua M.D. 05/01/2022 10:41 AM
--- NOTE | 2022-05-01 11:11 | CT Scan Report ---
CT SCAN OF THE BRAIN WITHOUT IV CONTRAST CLINICAL HISTORY: Generalized weakness. COMPARISON STUDY: CT of the brain dated 04/05/2022. TECHNIQUE: Unenhanced axial CT scan of the brain is performed from the vertex to the skull base. A do se lowering technique was utilized adhering to the principles of ALARA. CT DOSE: 894.57 mGycm FINDINGS: Brain parenchyma: There is age-related involutional change noting mild subcortical and periventricula r microangiopathic disease. There is no hemorrhage, mass effect, or evidence of acute territorial isc hemia by CT criteria. Gomez-white matter differentiation is preserved. No extra-axial fluid collection is seen. Ventricles, sulci, cisterns: Prominent secondary to involutional change. Intracranial vasculature: There is atherosclerotic calcification of the cavernous carotid and vertebr al arteries. Calvarium: Unremarkable. Sinuses and mastoids: The visualized paranasal sinuses are clear. The mastoid air cells are well pneu matized. Orbits: The bony orbits are grossly intact. There are bilateral ocular lens implants. IMPRESSION: There is no hemorrhage, mass effect, or evidence of acute territorial ischemia by CT kaitlynn rick. ACT 112: Negative or not required by law. Electronically signed by: Prince Hogue M.D. 05/01/2022 11:10 AM
[2022-05-01 11:16] LABS: T4 Free Thyroxine 0.91 ng/dl (0.61-1.60)
--- NOTE | 2022-05-01 12:28 | History & Physical Report ---
Date of Service May 01, 2022 Assessment & Plan (1) Weakness: Plan: Patient is 86 y/o M with PMH COPD, HTN, dyslipidemia presented to ER with c/o increased weakness today and was unable to complete flight of stairs. no fall today. History falls at home [address] Head: no acute findings UA pending Fall precautions PT/OT eval Patient is to go [facility] within the next couple of weeks (2) Hypoxia: Plan: In ER pulse ox down to 88% on RA up to 96% on 2L via NC No fever, no leukocytosis CXR: Atelectasis without airspace opacities. 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 See addendum History of Present Illness Chief Complaint: Weakness Primary Care Provider: Hakeem Mclaughlin MD Patient is 86 y/o M with PMH COPD, HTN, dyslipidemia presented to ER with c/o weakness. History obtained from patient, and chart review. Patient is hard of hearing. Patient states that he felt weak today and couldn't stand up. reports walked down steps and couldn't finish walking down steps and had to sit down. He was unable to stand up on his own. called EMS. No fall today. 2 weeks ago fell stepping into house and fell taking dog outside. Patient just started using a cane past couple of days. states patient has been off balance. She reports he is very forgetful. reports had suspected stroke in 09/2021 and has residual dysphasia. He never had a formal workup. No change in his speech since that time. Chronic constipation. Has coughed two times today. Denies fever/chills, diaphoresis, N/V/D, STEVEN, dizziness, syncope, vision changes, neck pain, CP, SOB, orthopnea, palpitations, sore throat, choking, otalgia, rhinorrhea, abdominal pain, paresthesias, extremity edema, rashes, urinary symptoms. and patient are to be going [facility] within the next couple of weeks. Allergies Allergy/AdvReac Type Severity Reaction Status Date / Time aspirin AdvReac Intermediate "GI Verified 04/05/22 10:43 UPSET/BLEED A LONG TIME AGO" Home Medications Medication Instructions Recorded Confirmed Type doxazosin 8 mg tablet 8 mg PO HS 01/01/19 05/01/22 History olopatadine 0.1 % eye drops 1 drp OPB BID 01/01/19 05/01/22 History polyethylene glycol 3350 17 17 g PO DAILY 01/01/19 05/01/22 History gram/dose oral powder simvastatin 20 mg tablet 20 mg PO HS 01/01/19 05/01/22 History finasteride 5 mg tablet 5 mg PO DAILY 07/22/21 05/01/22 History Past Med/Surg History Medical History BPH (benign prostatic hyperplasia) Cerebrovascular disease, unspecified COPD (chronic obstructive pulmonary disease) Dyslipidemia Heart disease HTN (hypertension) Old myocardial infarct Squamous cell carcinoma Stomach ulcer Umbilical hernia with obstruction Unspecified circulatory system disorder Surgical History History of hernia repair Family History Father Prostate cancer Mother Stroke Social History Smoking Status: Former smoker Second Hand Exposure: No; Do You Dip or Chew Tobacco: No; Tobacco Cessation Education Requested by Patient: No Hx Alcohol Use: No Hx Substance Use: No Preferred Language: Lithuanian Communication Ability: Effective Capacity Planner Required: No Beliefs That Will Affect Care: None Current Living Situation: Spouse current occupational status: retired Other Information That Helps Us Care for You: No Feels Safe at Home: Yes Safety Concerns: Feels Safe At This Time Assistive Devices: None Review of Systems Review of Systems: All systems reviewed & are unremarkable except as noted in HPI & below Physical Exam Physical Exam: PE per Dr Izaguirre Results & Data Results & Data ([place]) Vital Signs (Past 12 Hours) Vital Signs Temp Pulse Resp BP Pulse Ox 05/01/22 11:40 70 23 05/01/22 11:30 71 25 H 116/72 05/01/22 11:20 69 25 H 05/01/22 11:10 72 25 H 05/01/22 11:06 74 23 05/01/22 10:40 70 23 97 05/01/22 10:30 72 22 126/73 98 05/01/22 10:20 72 22 98 05/01/22 10:10 79 17 97 05/01/22 10:00 67 23 130/65 97 05/01/22 09:50 74 24 115/61 96 05/01/22 09:40 78 25 H 95 05/01/22 09:30 78 27 H 05/01/22 09:20 75 22 94 05/01/22 09:19 80 25 H 88 L 05/01/22 09:16 88 L 05/01/22 09:14 88 L 05/01/22 08:54 36.4 C L 80 20 127/73 94 Laboratory Results Short CBC 05/01/22 Range/Units 09:38 WBC 4.15 L (4.8-10.8) K/uL Hgb 14.1 (14.0-18.0) g/dL Hct 43.5 (42-52) % Plt Count 109 L (130-400) K/uL BMP 05/01/22 09:38 Sodium 139 Potassium 3.9 Chloride 107 Carbon Dioxide 26 BUN 26 H Creatinine 1.22 Glucose 103 H Calcium 9.6 Liver Function 05/01/22 Range/Units 09:38 Total Bilirubin 0.6 (0.2-1.0) mg/dl AST 21 (13-39) U/L ALT 13 (7-52) U/L Alkaline Phosphatase 54 (34-104) U/L Albumin 3.7 (3.4-5.0) gm/dl Urine 05/01/22 Range/Units 13:29 Urine Color Yellow Urine Appearance Clear (Clear) Urine pH 6.0 (4.5-7.5) Ur Specific [place] 1.022 (1.000-1.030) Urine Protein Trace H (Negative) Urine Glucose (UA) Negative (Negative) Diagnostic Findings Chest X-Ray 05/01/22 09:14 XR chest 1V portable CLINICAL HISTORY: weakness TECHNIQUE: Single frontal radiograph of the chest was obtained. Comparison: Comparison is made to chest radiograph 04/05/2022 FINDINGS: No lines and tubes are seen. Calcified aortic knob is seen. Cardiomegaly is again noted. Atelectasis is at the right lung base. No evidence of pleural effusion or pneumothorax. IMPRESSION: Atelectasis without airspace opacities. ACT 112: Negative or not required by law. Electronically signed by: Damien Amezcua M.D. 05/01/2022 10:[address] 05/01/22 10:07 CT SCAN OF THE BRAIN WITHOUT IV CONTRAST CLINICAL HISTORY: Generalized weakness. COMPARISON STUDY: CT of the brain dated 04/05/2022. TECHNIQUE: Unenhanced axial CT scan of the brain is performed from the vertex to the skull base. A dose lowering technique was utilized adhering to the principles of ALARA. CT DOSE: 894.57 mGycm FINDINGS: Brain parenchyma: There is age-related involutional change noting mild subcortical and periventricular microangiopathic disease. There is no hemorrhage , mass effect, or evidence of acute territorial ischemia by CT criteria. Gomez- white matter differentiation is preserved. No extra-axial fluid collection is seen. Ventricles, sulci, cisterns: Prominent secondary to involutional change. Intracranial vasculature: There is atherosclerotic calcification of the cavernous carotid and vertebral arteries. Calvarium: Unremarkable. Sinuses and mastoids: The visualized paranasal sinuses are clear. The mastoid air cells are well pneumatized. Orbits: The bony orbits are grossly intact. There are bilateral ocular lens implants. IMPRESSION: There is no hemorrhage, mass effect, or evidence of acute territorial ischemia by CT criteria. ACT 112: Negative or not required by law. Electronically signed by: Prince Hogue M.D. 05/01/2022 11:10 AM Supervising Physician Co-Signing Physician Notes Date of Service: May 01, 2022 History notable for 86 year old man who presents with weakness Patient is a very poor historian. Only reported falls at home, generalized weakness that he could not get up today, dry cough on ROS. Was noted to be hypoxic in ER Physical exam notable for elderly man in no distress, hearing aid in situ, RRR, S1-S2, chest clear to auscultation. General: Elderly man in no distress Eyes: PERRL, conjunctivae normal, not pale, anicteric sclerae, EOM intact bilaterally ENMT: External ear and nose normal, oropharynx normal, hearing aides in situ Respiratory: Normal respiratory effort, no respiratory distress, lungs clear to auscultation, no crackles and no wheezes Cardiovascular: RRR S1 S2 Gastrointestinal (Abdomen): Abdomen is not distended, soft, non-tender to palpation, no guarding, no palpable hepatosplenomegaly, normal bowel sounds Musculoskeletal: No pedal edema Neurologic: Alert and oriented to person and place only, No focal weakness, sensation grossly intact Psychiatric: Euthymic affect Lab work notable for WBC of 4.15K, platelet of 109K, troponin at bedtime of 31.4, TSH of 0.27 but free T4 of 0.[address] did not show any acute abnormalities Chest x-ray noted atelectasis without airspace opacities Generalized weakness Fall at home. Elevated troponin EKG did not show any ST-T changes/new change except for PVC. Trend troponins Check D-dimer. If elevated get CT PE PT/OT evaluation Agree with other plans as detailed by Abigail Garber PA-C
--- NOTE | 2022-05-01 12:40 | Communication Note ---
Date of Service: May 01, 2022 History notable for 86 year old man who presents with weakness Patient is a very poor historian. Only reported falls at home, generalized weakness that he could not get up today, dry cough on ROS. Was noted to be hypoxic in ER Physical exam notable for elderly man in no distress, hearing aid in situ, RRR, S1-S2, chest clear to auscultation. Lab work notable for WBC of 4.15K, platelet of 109K, troponin at bedtime of 31.4, TSH of 0.27 but free T4 of 0.[address] did not show any acute abnormalities Chest x-ray noted atelectasis without airspace opacities Generalized weakness Fall at home. Elevated troponin EKG did not show any ST-T changes/new change except for PVC. Trend troponins Check D-dimer. If elevated get CT PE PT/OT evaluation Agree with other plans as detailed by Abigail Garber PA-C
[2022-05-01 13:25] LABS: D Dimer 6720 ug/L FEU (0-500)
[2022-05-01 13:54] LABS: Appearance Urine Clear (Clear); Bacteria Urine Automated Negative (Negative); Bilirubin Urine Negative (Negative); Blood Urine 2+ (Negative); Color Urine Yellow; Epithelial Cell Urine Auto 0-5 /lpf (0-5); Glucose Urine UA Negative (Negative); Ketones Urine Trace (Negative); Leukocyte Esterase Urine Negative (Negative); Nitrite Urine Negative (Negative); Protein Urine Trace (Negative); Specific Gravity Urine 1.022 (1.000-1.030); Urobilinogen Urine Negative (Negative)
[2022-05-01] MEDS ORDERED: OPTIRAY 320 125ml IV ONE (18:15)
--- NOTE | 2022-05-01 18:46 | CT Scan Report ---
CT ANGIOGRAPHY OF THE CHEST, PULMONARY EMBOLUS PROTOCOL CLINICAL HISTORY: Shortness of breath. Evaluate for pulmonary embolus. COMPARISON STUDY: Chest CT April 05, 2022. Chest radiograph performed earlier today. TECHNIQUE: Following IV administration of 118 mL of Optiray, helical axial images of the chest were o btained utilizing the pulmonary embolus protocol. Maximal intensity projections and sagittal and cor onal reformats were viewed on an independent 3D workstation. IV contrast was administered without co mplication. Automated exposure control was utilized for the study. A dose lowering technique was ut ilized adhering to the principles of ALARA. CT DOSE: 640.44 mGy.cm FINDINGS: No pulmonary emboli are identified although the segmental and subsegmental pulmonary arter ies within the lower lobes are suboptimally assessed due to respiratory motion. Moderate cardiomegaly is noted. No pericardial effusion. No thoracic lymphadenopathy is present. There is moderate plaque of the thoracic aorta. Extensive coronary artery calcification is present. Linear and groundglass opa cities within lungs favor atelectasis. No consolidation to suggest pneumonia. No pneumothorax or pleu ral effusion is noted. A cyst within the upper pole of the right kidney is noted. There are gallstone s within the gallbladder. IMPRESSION: 1. No pulmonary emboli identified although exam moderately compromised by respiratory motion, as desc ribed above. 2. Cardiomegaly. 3. Linear and groundglass opacity suggestive of atelectasis. No consolidation to suggest pneumonia. ACT 112: Negative or not required by law. Electronically signed by: Jean Kent M.D. 05/01/2022 6:44 PM
[2022-05-01] MEDS: DOXAZosin MESYLATE 4 MG TAB PO SCH ×2 (20:04→20:29)
[2022-05-01] MEDS: SIMVASTATIN 20 MG TAB PO SCH (20:04)
[2022-05-01] MEDS: HEPARIN SOD 5,000 UNIT/0.5 ML VIAL SQ SCH (20:04)
[2022-05-02] MEDS: ACETAMINOPHEN 325 MG TAB PO PRN ×2 (01:43→15:36)
[2022-05-02 04:18] LABS: Hematocrit (blood only) 39.2 % (42-52); Hemoglobin 12.9 g/dL (14.0-18.0); Mean Corpuscular Hemoglobin 32.2 pg (25-34); Mean Corpuscular Hgb Conc 32.9 g/dL (32-36); Mean Corpuscular Volume 97.8 fL (80-100); Mean Platelet Volume 11.6 fL (7.4-10.4); Platelet Count 102 K/uL (130-400); RDW Coefficient of Variation 13.1 % (11.5-14.5); RDW Standard Deviation 47.3 fL (36.4-46.3); Red Blood Count 4.01 M/uL (4.7-6.1); White Blood Count 4.05 K/uL (4.8-10.8)
[2022-05-02 04:36] LABS: BUN Creatinine Ratio 22.9 (10-20); Calcium 8.4 mg/dl (8.5-10.1); Creatinine Clr Calc Pharmacy 60.6 ml/min; Est GFR (African American) 70.4 ml/min; Est GFR (Non-African American) 60.7 ml/min; Potassium 3.8 mmol/L (3.5-5.1)
[2022-05-02] MEDS: HEPARIN SOD 5,000 UNIT/0.5 ML VIAL SQ SCH ×2 (09:14→20:02)
[2022-05-02] MEDS: FINASTERIDE 5 MG TAB PO SCH (10:15)
[2022-05-02] MEDS: POLYETHYLENE (MIRALAX) 17 GM PACK PO SCH (10:15)
--- NOTE | 2022-05-02 11:09 | Ultrasound Report ---
US venous doppler LE BI CLINICAL HISTORY: Elevated D dimer, Fever TECHNIQUE: Bilateral lower extremity real-time compression venous ultrasound with Color Doppler imagi ng. Utilizing real-time ultrasonic imaging multiple real time high-resolution ultrasonic images with compression and noncompression maneuvers of the deep venous system in addition to color doppler imagi ng were performed from the common femoral vein through the proximal calf veins. COMPARISON: None available at the time of this dictation. FINDINGS: Currently there is normal compressibility of the deep venous system from the common femoral vein thro ugh the proximal calf veins. No superficial venous thrombosis is identified. Impression: No evidence of deep venous thrombus. ACT 112: Negative or not required by law. Electronically signed by: Damien Amezcua M.D. 05/02/2022 11:08 AM
--- NOTE | 2022-05-02 15:10 | Hospitalist Progress Note ---
Date of Service May 02, 2022 Assessment & Plan (1) Weakness: Plan: Patient is an 86 yr male with H/O COPD, HTN, dyslipidemia presented to ER with c/o increased weakness today and was unable to complete flight of stairs. no fall today. History falls at home 2 weeks ago Generalized weakness Multiple falls H/O CVA --CT Head:There is no hemorrhage, mass effect, or evidence of acute territorial ischemia by CT criteria. TSH slightly low, normal Free T4 Vitamin B12 pending PT OT Fall precautions May need rehab (2) Hypoxia: Plan: Elevated D-dimer Hypoxia Likely atelectasis H/O COPD --CTA:No pulmonary emboli identified although exam moderately compromised by respiratory motion, as described above. Cardiomegaly. Linear and groundglass opacity suggestive of atelectasis. No consolidation to suggest pneumonia. --Venous Doppler:No evidence of deep venous thrombus. Incentive spirometry Given history of COPD, titrate oxygen to keep saturations between 88 to 92% Wean off of supplemental oxygen as able (3) COPD (chronic obstructive pulmonary disease): Plan: Not on inhalers Former smoker No signs of exacerbation Monitor (4) Cerebrovascular disease, unspecified: Plan: H/O Suspected CVA in 09/2021 with residual dysphasia No acute neuro symptoms Continue simvastatin (5) BPH (benign prostatic hyperplasia): Plan: Continue doxazosin, finasteride Chronic thrombocytopenia Monitor DVT Px Heparin SQ Code Status DNR/DNI Disposition May need rehab placement Admission and Anticipated Discharge Date Admission Date: May 01, 2022 Subjective Patient is seen and examined at bedside Poor historian States having generalized weakness and tiredness Denies any chest pain, shortness of breath, dizziness, nausea, abdominal pain Requiring 2 L of supplemental oxygen to maintain saturation Review of Systems Review of Systems: All systems reviewed & are unremarkable except as noted in Subjective Physical Exam Physical Exam: Physical Exam: Vitals signs as noted above General Appearance:Moderately built and nourished, no apparent distress, Elderly Head: normocephalic, Atraumatic Eyes: normal inspection, EOMI Neck: supple, Trachea midline Respiratory/Chest: Normal breath sounds, basal crackles, No accessory muscle use Cardiovascular: S1, S2, No murmur Abdomen/GI:Soft, Non tender, Bowel sounds present Extremities/Musculoskeletal:normal inspection, no edema Neurologic/Psych:AAOX2, Left UE 3-4/5, decreased ROM, Chronic dysphasia Skin: normal color, warm Results & Data Results & Data ([facility]) Vital Signs (Past 12 Hours) Vital Signs Temp Pulse Pulse Resp BP Pulse Ox 05/02/22 11:22 37.1 C 78 18 133/67 95 05/02/22 07:47 36.7 C 99 H 18 131/72 91 05/02/22 07:11 84 Laboratory Results Short CBC 05/02/22 Range/Units 04:00 WBC 4.05 L (4.8-10.8) K/uL Hgb 12.9 L (14.0-18.0) g/dL Hct 39.2 L (42-52) % Plt Count 102 L (130-400) K/uL BMP 05/02/22 04:00 Sodium 137 Potassium 3.8 Chloride 105 Carbon Dioxide 26 BUN 25 H Creatinine 1.09 Glucose 89 Calcium 8.4 L (1) COPD (chronic obstructive pulmonary disease) COPD type: unspecified COPD Qualified Code(s): J44.9 - Chronic obstructive pulmonary disease, unspecified
[2022-05-02] MEDS: SIMVASTATIN 20 MG TAB PO SCH (20:01)
[2022-05-02] MEDS ORDERED: LACTATED RINGER'S 1,000 ML IV ONE (20:23)
[2022-05-02] MEDS: DOXAZosin MESYLATE 4 MG TAB PO SCH ×2 (20:28→20:30)
[2022-05-03] MEDS: ONDANSETRON INJ 2 MG/ML 2 ML VIAL IV PRN (00:51)
[2022-05-03 06:42] LABS: Hematocrit (blood only) 39.2 % (42-52); Mean Corpuscular Hemoglobin 32.9 pg (25-34); Mean Corpuscular Hgb Conc 33.2 g/dL (32-36); Mean Corpuscular Volume 99.2 fL (80-100); Mean Platelet Volume 11.9 fL (7.4-10.4); Platelet Count 102 K/uL (130-400); RDW Coefficient of Variation 13.1 % (11.5-14.5); RDW Standard Deviation 48.1 fL (36.4-46.3); Red Blood Count 3.95 M/uL (4.7-6.1); White Blood Count 3.88 K/uL (4.8-10.8)
[2022-05-03 06:58] LABS: Est GFR (African American) 71.1 ml/min; Potassium 4.2 mmol/L (3.5-5.1)
[2022-05-03 06:59] LABS: BUN Creatinine Ratio 27.8 (10-20); Calcium 8.2 mg/dl (8.5-10.1); Creatinine Clr Calc Pharmacy 60.8 ml/min; Est GFR (Non-African American) 61.4 ml/min
[2022-05-03] MEDS: ACETAMINOPHEN 325 MG TAB PO PRN ×2 (07:50→19:52)
[2022-05-03] MEDS: FINASTERIDE 5 MG TAB PO SCH (07:51)
[2022-05-03] MEDS: HEPARIN SOD 5,000 UNIT/0.5 ML VIAL SQ SCH ×2 (07:51→19:52)
[2022-05-03] MEDS: POLYETHYLENE (MIRALAX) 17 GM PACK PO SCH (07:51)
--- NOTE | 2022-05-03 15:17 | Hospitalist Progress Note ---
Date of Service May 03, 2022 Assessment & Plan (1) Weakness: Plan: Patient is an 86 yr male with H/O COPD, HTN, dyslipidemia presented to ER with c/o increased weakness today and was unable to complete flight of stairs. no fall today. History falls at home 2 weeks ago Generalized weakness Multiple falls H/O CVA --CT Head:There is no hemorrhage, mass effect, or evidence of acute territorial ischemia by CT criteria. TSH slightly low, normal Free T4 Vitamin B12 pending PT OT Fall precautions Needs Rehab placement Fever Unclear source of infection Blood culture pending UA not suggestive of UTI CTA showed no signs of consolidation. Check respiratory panel (2) Hypoxia: Plan: Elevated D-dimer Hypoxia Likely atelectasis H/O COPD --CTA:No pulmonary emboli identified although exam moderately compromised by respiratory motion, as described above. Cardiomegaly. Linear and groundglass opacity suggestive of atelectasis. No consolidation to suggest pneumonia. --Venous Doppler:No evidence of deep venous thrombus. Incentive spirometry Given history of COPD, titrate oxygen to keep saturations between 88 to 92% Wean off of supplemental oxygen as able (3) COPD (chronic obstructive pulmonary disease): Plan: Not on inhalers Former smoker No signs of exacerbation Monitor (4) Cerebrovascular disease, unspecified: Plan: H/O Suspected CVA in 09/2021 with residual dysphasia No acute neuro symptoms Continue simvastatin (5) BPH (benign prostatic hyperplasia): Plan: Continue doxazosin, finasteride Chronic thrombocytopenia Monitor DVT Px Heparin SQ Code Status DNR/DNI Disposition Rehab as able Admission and Anticipated Discharge Date Admission Date: May 01, 2022 Subjective Patient is seen and examined at bedside Persistent low-grade fever this morning Sitting in chair during my encounter States feeling tired today Requiring supplemental oxygen to maintain saturation Denies any chest pain, shortness of breath, cough, diarrhea, dizziness, nausea, abdominal pain Review of Systems Review of Systems: All systems reviewed & are unremarkable except as noted in Subjective Physical Exam Physical Exam: Physical Exam: Vitals signs as noted above General Appearance:Moderately built and nourished, no apparent distress, Elderly Head: normocephalic, Atraumatic Eyes: normal inspection, EOMI Neck: supple, Trachea midline Respiratory/Chest: Normal breath sounds, basal crackles, No accessory muscle use Cardiovascular: S1, S2, No murmur Abdomen/GI:Soft, Non tender, Bowel sounds present Extremities/Musculoskeletal:normal inspection, no edema Neurologic/Psych:AAOX2, Left UE 3-4/5, decreased ROM, Chronic dysphasia Skin: normal color, warm Results & Data Results & Data ([facility]) Vital Signs (Past 12 Hours) Vital Signs Temp Pulse Pulse Resp BP Pulse Ox Pulse Ox 05/03/22 13:47 93 05/03/22 12:22 36.8 C 75 18 148/73 H 90 05/03/22 08:00 78 16 97 05/03/22 07:40 16 88 L 05/03/22 07:30 37.7 C H 16 106/57 L 84 L 05/03/22 03:17 36.3 C L 99 H 18 116/68 93 Pulse Ox Pulse Ox 05/03/22 13:47 83 L 92 05/03/22 12:22 05/03/22 08:00 05/03/22 07:40 05/03/22 07:30 05/03/22 03:17 Laboratory Results Short CBC 05/03/22 Range/Units 05:19 WBC 3.88 L (4.8-10.8) K/uL Hgb 13.0 L (14.0-18.0) g/dL Hct 39.2 L (42-52) % Plt Count 102 L (130-400) K/uL BMP 05/03/22 05:19 Sodium 137 Potassium 4.2 Chloride 103 Carbon Dioxide 30 BUN 30 H Creatinine 1.08 Glucose 91 Calcium 8.2 L (1) COPD (chronic obstructive pulmonary disease) COPD type: unspecified COPD Qualified Code(s): J44.9 - Chronic obstructive pulmonary disease, unspecified
[2022-05-03 16:51] LABS: Adenovirus PCR Not Detected (NotDetected); Bordetella parapertussis PCR Not Detected (NotDetected); Bordetella pertussis PCR Not Detected (NotDetected); Chlamydia pneumoniae PCR Not Detected (NotDetected); Coronavirus 229E PCR Not Detected (NotDetected); Coronavirus CoV-2 (COVID19)PCR Not Detected (NotDetected); Coronavirus HKU1 PCR Not Detected (NotDetected); Coronavirus NL63 PCR Not Detected (NotDetected); Coronavirus OC43PCR Not Detected (NotDetected); Human Metapneumovirus PCR Not Detected (NotDetected); Influenza A PCR Not Detected (NotDetected); Influenza B PCR Not Detected (NotDetected); Mycoplasma pneumoniae PCR Not Detected (NotDetected); Parainfluenza Virus 1 PCR Not Detected (NotDetected); Parainfluenza Virus 2 PCR Not Detected (NotDetected); Parainfluenza Virus 3 PCR Not Detected (NotDetected); Parainfluenza Virus 4 PCR Not Detected (NotDetected); Respiratory Syncytial VirusPCR Not Detected (NotDetected); Rhinovirus/Enterovirus PCR Not Detected (NotDetected)
[2022-05-03] MEDS: SIMVASTATIN 20 MG TAB PO SCH (19:52)
[2022-05-03] MEDS: DOXAZosin MESYLATE 4 MG TAB PO SCH (19:52)
[2022-05-04 06:06] LABS: Hematocrit (blood only) 40.1 % (42-52); Mean Corpuscular Hemoglobin 31.9 pg (25-34); Mean Corpuscular Hgb Conc 32.4 g/dL (32-36); Mean Corpuscular Volume 98.5 fL (80-100); Mean Platelet Volume 11.9 fL (7.4-10.4); Platelet Count 101 K/uL (130-400); RDW Coefficient of Variation 13.6 % (11.5-14.5); RDW Standard Deviation 48.8 fL (36.4-46.3); Red Blood Count 4.07 M/uL (4.7-6.1); White Blood Count 4.28 K/uL (4.8-10.8)
[2022-05-04 06:13] LABS: BUN Creatinine Ratio 30.2 (10-20); Calcium 8.3 mg/dl (8.5-10.1); Creatinine Clr Calc Pharmacy 68.2 ml/min; Est GFR (Non-African American) 70.8 ml/min; Potassium 4.1 mmol/L (3.5-5.1)
[2022-05-04] MEDS: FINASTERIDE 5 MG TAB PO SCH (08:51)
[2022-05-04] MEDS: HEPARIN SOD 5,000 UNIT/0.5 ML VIAL SQ SCH ×2 (08:51→20:02)
[2022-05-04] MEDS: POLYETHYLENE (MIRALAX) 17 GM PACK PO SCH (08:51)
--- NOTE | 2022-05-04 09:23 | Electrocardiogram Report ---
Test Reason : Blood Pressure : / mmHG Vent. Rate : 081 BPM Atrial Rate : 081 BPM P-R Int : 152 ms QRS Dur : 102 ms QT Int : 416 ms P-R-T Axes : 062 -24 126 degrees QTc Int : 483 ms Sinus rhythm with Premature atrial complexes T wave abnormality, consider lateral ischemia Prolonged QT Abnormal ECG When compared with ECG of 01-MAY-2022 09:09, Premature ventricular complexes are no longer Present Premature atrial complexes are now Present QT has lengthened Confirmed by Donte Lentz ([id number]) on 05/04/2022 9:23:18 AM Referred By: REFERRED SELF Confirmed By:Donte Lentz
--- NOTE | 2022-05-04 14:17 | Hospitalist Progress Note ---
Date of Service May 04, 2022 Assessment & Plan (1) Weakness: Plan: Patient is an 86 yr male with H/O COPD, HTN, dyslipidemia presented to ER with c/o increased weakness today and was unable to complete flight of stairs. no fall today. History falls at home 2 weeks ago Generalized weakness Multiple falls H/O CVA --CT Head:There is no hemorrhage, mass effect, or evidence of acute territorial ischemia by CT criteria. TSH slightly low, normal Free T4 Vitamin B12 normal PT OT Fall precautions Needs Rehab placement Waiting for rehab placement Fever Unclear source of infection Blood culture No growth to date UA not suggestive of UTI CTA showed no signs of consolidation. Respiratory panel negative (2) Hypoxia: Plan: Elevated D-dimer Hypoxia Likely atelectasis H/O COPD --CTA:No pulmonary emboli identified although exam moderately compromised by respiratory motion, as described above. Cardiomegaly. Linear and groundglass opacity suggestive of atelectasis. No consolidation to suggest pneumonia. --Venous Doppler:No evidence of deep venous thrombus. Incentive spirometry Given history of COPD, titrate oxygen to keep saturations between 88 to 92% Saturating low 90s on room air (3) COPD (chronic obstructive pulmonary disease): Plan: Not on inhalers Former smoker No signs of exacerbation Monitor (4) Cerebrovascular disease, unspecified: Plan: H/O Suspected CVA in 09/2021 with residual dysphasia No acute neuro symptoms Continue simvastatin (5) BPH (benign prostatic hyperplasia): Plan: Continue doxazosin, finasteride Abnormal EKG Echo showed no wall motion abnormality Patient denies any chest pain Chronic thrombocytopenia Monitor DVT Px Heparin SQ Code Status DNR/DNI Disposition Rehab when arranged Admission and Anticipated Discharge Date Admission Date: May 01, 2022 Subjective Patient is seen and examined at bedside Lying in bed comfortably during my encounter Afebrile today Offers no new complaints States having minimal dry cough Denies any chest pain, dyspnea, dizziness, nausea, abdominal pain Review of Systems Review of Systems: All systems reviewed & are unremarkable except as noted in Subjective Physical Exam Physical Exam: Physical Exam: Vitals signs as noted above General Appearance:Moderately built and nourished, no apparent distress, Elderly Head: normocephalic, Atraumatic Eyes: normal inspection, EOMI Neck: supple, Trachea midline Respiratory/Chest: Normal breath sounds, basal crackles, No accessory muscle use Cardiovascular: S1, S2, No murmur Abdomen/GI:Soft, Non tender, Bowel sounds present Extremities/Musculoskeletal:normal inspection, no edema Neurologic/Psych:AAOX2, Left UE 3-4/5, decreased ROM, Chronic dysphasia Skin: normal color, warm Results & Data Results & Data ([facility]) Vital Signs (Past 12 Hours) Vital Signs Temp Pulse Pulse Resp BP Pulse Ox 05/04/22 08:28 37.2 C 83 20 120/74 90 05/04/22 07:43 71 05/04/22 03:13 36.7 C 71 18 128/70 90 Laboratory Results Short CBC 05/04/22 Range/Units 05:14 WBC 4.28 L (4.8-10.8) K/uL Hgb 13.0 L (14.0-18.0) g/dL Hct 40.1 L (42-52) % Plt Count 101 L (130-400) K/uL BMP 05/04/22 05:14 Sodium 137 Potassium 4.1 Chloride 102 Carbon Dioxide 31 BUN 29 H Creatinine 0.96 Glucose 78 Calcium 8.3 L (1) COPD (chronic obstructive pulmonary disease) COPD type: unspecified COPD Qualified Code(s): J44.9 - Chronic obstructive pulmonary disease, unspecified
[2022-05-04] MEDS: ONDANSETRON INJ 2 MG/ML 2 ML VIAL IV PRN (20:02)
[2022-05-04] MEDS: DOXAZosin MESYLATE 4 MG TAB PO SCH (20:03)
[2022-05-04] MEDS: SIMVASTATIN 20 MG TAB PO SCH (20:03)
[2022-05-05] MEDS: HEPARIN SOD 5,000 UNIT/0.5 ML VIAL SQ SCH ×2 (08:23→20:47)
[2022-05-05] MEDS: FINASTERIDE 5 MG TAB PO SCH (08:23)
[2022-05-05] MEDS: POLYETHYLENE (MIRALAX) 17 GM PACK PO SCH (08:23)
--- NOTE | 2022-05-05 15:36 | Hospitalist Progress Note ---
Date of Service May 05, 2022 Assessment & Plan (1) Weakness: Plan: Patient is an 86 yr male with H/O COPD, HTN, dyslipidemia presented to ER with c/o increased weakness today and was unable to complete flight of stairs. no fall today. History falls at home 2 weeks ago Generalized weakness Multiple falls H/O CVA --CT Head:There is no hemorrhage, mass effect, or evidence of acute territorial ischemia by CT criteria. TSH slightly low, normal Free T4 Vitamin B12 normal PT OT Fall precautions Needs Rehab placement Waiting for rehab placement No significant change from yesterday clinically Fever Unclear source of infection Blood culture No growth to date UA not suggestive of UTI CTA showed no signs of consolidation. Respiratory panel negative Resolved (2) Hypoxia: Plan: Elevated D-dimer Hypoxia Likely atelectasis H/O COPD --CTA:No pulmonary emboli identified although exam moderately compromised by respiratory motion, as described above. Cardiomegaly. Linear and groundglass opacity suggestive of atelectasis. No consolidation to suggest pneumonia. --Venous Doppler:No evidence of deep venous thrombus. Incentive spirometry Given history of COPD, titrate oxygen to keep saturations between 88 to 92% Saturating low 90s on room air (3) COPD (chronic obstructive pulmonary disease): Plan: Not on inhalers Former smoker No signs of exacerbation Monitor (4) Cerebrovascular disease, unspecified: Plan: H/O Suspected CVA in 09/2021 with residual dysphasia No acute neuro symptoms Continue simvastatin (5) BPH (benign prostatic hyperplasia): Plan: Continue doxazosin, finasteride Abnormal EKG Echo showed no wall motion abnormality Patient denies any chest pain Chronic thrombocytopenia Monitor DVT Px Heparin SQ Code Status DNR/DNI Disposition Rehab when arranged Case management to help with discharge planning Admission and Anticipated Discharge Date Admission Date: May 01, 2022 Subjective Patient is seen and examined at bedside No new complaints Cough improved Denies any chest pain, dyspnea, dizziness, nausea, abdominal pain Waiting for rehab placement Review of Systems Review of Systems: All systems reviewed & are unremarkable except as noted in Subjective Physical Exam Physical Exam: Physical Exam: Vitals signs as noted above General Appearance:Moderately built and nourished, no apparent distress, Elderly Head: normocephalic, Atraumatic Eyes: normal inspection, EOMI Neck: supple, Trachea midline Respiratory/Chest: Normal breath sounds, basal crackles, No accessory muscle use Cardiovascular: S1, S2, No murmur Abdomen/GI:Soft, Non tender, Bowel sounds present Extremities/Musculoskeletal:normal inspection, no edema Neurologic/Psych:AAOX2, Left UE 3-4/5, decreased ROM, Chronic dysphasia Skin: normal color, warm Results & Data Results & Data ([facility]) Vital Signs (Past 12 Hours) Vital Signs Temp Pulse Pulse Resp BP Pulse Ox 05/05/22 11:01 36.5 C 75 18 104/58 L 93 05/05/22 07:39 36.8 C 97 H 20 98/59 L 90 05/05/22 07:16 81 (1) COPD (chronic obstructive pulmonary disease) COPD type: unspecified COPD Qualified Code(s): J44.9 - Chronic obstructive pulmonary disease, unspecified
[2022-05-05] MEDS: DOXAZosin MESYLATE 4 MG TAB PO SCH (20:46)
[2022-05-05] MEDS: SIMVASTATIN 20 MG TAB PO SCH (20:48)
--- NOTE | 2022-05-05 21:18 | Communication Note ---
Date of Service: May 05, 2022 Overnight developments 05/05 9:15 PM Patient with cough symptoms productive of yellowish clear sputum. No concerns for aspiration as per RN. CXR as per my interpretation atelectasis, possible infiltrate right lower lung field AP HAP Zosyn 05/06 3AM Patient tachycardic, cardiac rate 130s at the highest, SBP 100s. Patient asymptomatic as per RN. EKG as per my interpretation rate 115, atrial flutter, LAD, LAFB, LVH, T wave abnormalities lateral leads AP New onset atrial flutter Lopressor for rate control Fluid bolus given borderline BP A.m. labs now. Cardiology consult Re: New onset atrial flutter 5AM Patient struggling to swallow as per RN, choking on everything. Was not an issue last night as per RN. Usual garbled speech and left upper extremity weakness baseline from old stroke as per RN. PPE Oriented to month and year No facial asymmetry Dysarthric (chronic as per RN) Tongue deviation to the right MMTS BUE 4/5, BLE 3/5 AP Dysphagia, aspiration ? CVA Stroke alert called. N.p.o., aspiration precautions Swallow eval in a.m. CT head initial read No evidence of acute intracranial pathology. Mild nonspecificwhite matter changes. Bilateral lens replacements. No comparisons. CT angio head initial read Negative CT angiogramof the head. No comparisons CT angio neck initial read Mild to moderate atherosclerotic plaque of the carotid bifurcationswith a 95%stenosis of the proximal left ICA. There is a 40%stenosis of the proximal right ICA. There is a large goiters left thyroid lobe with extensive mass-effect and narrowing of the trachea. Multilevel degenerative disc disease of the cervical spine. No comparisons. Patient contacted over the phone for update. Choking/swallowing issues have been happening at home even prior to admission as per . Stroke alert canceled. 550 a.m. Heart rate 100-1 30s upon return to [facility] telemetry PCU transfer for uncontrolled atrial flutter Lopressor 2.5 mg IV every 6 hours RTC for now Patient request for periodic updates from providers as she will not be able to visit patient in the hospital due to disability. Thais Corie, contact #[phone],
[2022-05-05] MEDS ORDERED: PIPERACILLIN/TAZOBACTAM 4.5 GM in DEXTROSE 5% 100 ML IV ONE (21:37)
[2022-05-06] MEDS ORDERED: SODIUM CHLORIDE 0.9% 1000ML 1,000 ML IV ONE (03:00)
[2022-05-06] MEDS ORDERED: MAGNESIUM SULFATE / D5W 1 GM/100 ML BAG IV ONE (03:01)
[2022-05-06] MEDS ORDERED: METOPROLOL TARTRATE 1 MG/ML VIAL IV STA ×2 (03:12→05:57)
[2022-05-06] MEDS: PIPERACILLIN/TAZOBACTAM 3.375 GM in DEXTROSE 5% 100 ML IV SCH ×3 (03:22→20:39)
[2022-05-06 04:07] LABS: Basophils # (auto) 0.01 K/uL (0-0.2); Basophils % (auto) 0.2 %; Eosinophils # (auto) 0.09 K/uL (0-0.5); Eosinophils % (auto) 1.4 %; Hemoglobin 12.4 g/dL (14.0-18.0); Immature Granulocytes # (auto) 0.02 K/uL (0.00-0.02); Immature Granulocytes % (auto) 0.3 %; Lymphocytes # (auto) 0.84 K/uL (1.2-3.4); Lymphocytes % (auto) 13.1 %; Mean Corpuscular Hemoglobin 31.7 pg (25-34); Mean Corpuscular Hgb Conc 32.6 g/dL (32-36); Mean Corpuscular Volume 97.2 fL (80-100); Mean Platelet Volume 11.2 fL (7.4-10.4); Monocytes # (auto) 0.45 K/uL (0.11-0.59); Neutrophils # (auto) 5.02 K/uL (1.4-6.5); Platelet Count 119 K/uL (130-400); RDW Coefficient of Variation 13.2 % (11.5-14.5); RDW Standard Deviation 47.3 fL (36.4-46.3); Red Blood Count 3.91 M/uL (4.7-6.1); White Blood Count 6.43 K/uL (4.8-10.8)
[2022-05-06 04:14] LABS: Partial Thromboplastin Ratio 1.1; Partial Thromboplastin Time 30.7 Seconds (21.0-31.0)
[2022-05-06 04:21] LABS: BUN Creatinine Ratio 21.8 (10-20); Calcium 7.7 mg/dl (8.5-10.1); Creatinine Clr Calc Pharmacy 64.7 ml/min; Est GFR (African American) 77.2 ml/min; Est GFR (Non-African American) 66.6 ml/min; Magnesium 3.3 mg/dl (1.7-2.4); Potassium 3.7 mmol/L (3.5-5.1)
[2022-05-06] MEDS ORDERED: POTASSIUM CHLORIDE CRTAB 20 MEQ TABCR PO STA (04:36)
[2022-05-06] MEDS ORDERED: DIGOXIN 250 MCG in SYRINGE 9 ML IV STA (05:08)
[2022-05-06] MEDS: ONDANSETRON INJ 2 MG/ML 2 ML VIAL IV PRN (05:15)
[2022-05-06] MEDS ORDERED: OPTIRAY 320 125ml IV ONE (05:44)
[2022-05-06] MEDS ORDERED: PROMETHAZINE HCL 12.5 MG in SODIUM CHLORIDE 0.9% 50 ML IV PRN (06:47)
--- NOTE | 2022-05-06 07:12 | CT Scan Report ---
UNENHANCED CT OF THE BRAIN; CT ANGIOGRAM OF THE BRAIN; CT ANGIOGRAM OF THE NECK CLINICAL HISTORY: Slurred speech. Change in mental status. COMPARISON STUDY: CT of the brain dated 05/01/2022. TECHNIQUE: Unenhanced axial CT scan of the brain is performed. Subsequently, following the IV adminis tration of 117 of [address] 320, CT angiogram of the head and neck was performed from the aortic arch t o the vertex. Images are reviewed in the axial, sagittal, and coronal planes. 3-D MIPS images are cre ated and assessed. IV contrast was administered without complication. All measurements were calculate d based on NASCET criteria. A dose lowering technique was utilized adhering to the principles of ALA RA. CT DOSE: 1512.83 mGy.cm FINDINGS: Brain parenchyma: There is age-related involutional changes noting mild subcortical and periventricul ar microangiopathic disease. There is no hemorrhage, mass effect, or evidence of acute territorial is chemia by CT criteria. There is no evidence of enhancing mass lesion on the angiogram phase images. T he ventricles, sulci, and cisterns are normal in configuration. Gomez-white matter differentiation is preserved. No extra-axial fluid collection is seen. Thoracic aorta: There is atherosclerotic calcification of the thoracic aorta. There is ectasia of the descending thoracic aorta which measures up to 3.6 cm. The aortic arch demonstrates standard 3-vesse l anatomy. Right carotid arterial system: The right common carotid artery is widely patent, as are the right int ernal and external carotid arteries. Advanced atherosclerotic plaque is noted in the carotid bulb. Left carotid arterial system: The left common carotid artery is widely patent, as is the left externa l carotid artery. Advanced atherosclerotic plaque is seen the carotid bulb. There is approximately 50 % focal stenosis of the proximal internal carotid artery, best seen on axial image #275. The remainde r of the internal carotid artery is patent. Vertebral arteries: There is mild stenosis the origin of the right vertebral artery, and there is is moderate stenosis the origin of the left vertebral artery. The vertebral arteries are otherwise widel y patent in the neck noting mild right-sided dominance. Subclavian arteries: Widely patent bilaterally. Intracranial vasculature: There is atherosclerotic calcification of the cavernous carotid and vertebr al arteries. The tolowa dee-ni' of Nicholas is developmentally complete with large bilateral posterior communic ating arteries. The internal carotid arteries are patent at the skull base, as are the anterior and m iddle cerebral arteries bilaterally. The vertebrobasilar system and posterior cerebral arteries are w idely patent. The right vertebral artery is dominant. There is no aneurysm, high-grade stenosis, or f ocal vessel cut off seen throughout the intracranial circulation. Jugular veins: Patent bilaterally. Dural sinuses: Patent. Lung apices: A right pleural effusion is partially visualized. Upper lobe lung parenchyma is otherwis e clear as imaged. Soft tissues: The visualized pharyngeal soft tissues are normal in appearance noting angiographic pha se technique. The oropharyngeal airway appears widely patent. The thyroid gland is enlarged and heter ogeneous consistent with goiter. This causes rightward deviation and mild narrowing of the trachea. T he salivary glands are normal in appearance. No cervical lymphadenopathy is seen. Skeletal structures: The skeletal structures are osteopenic. The calvarium appears intact. The cervic al spine is maintained noting multilevel spondylosis. No lytic or blastic lesion is seen. Orbits: The bony orbits are intact. Orbital contents are normal as visualized note bilateral ocular l ens implants. Sinuses and mastoids: There is mild mucosal thickening within the maxillary antra. The remaining para nasal sinuses are clear. The mastoid air cells are well pneumatized. IMPRESSION: 1. There is no hemorrhage, mass effect, or evidence of acute territorial ischemia by CT criteria. 2. Unremarkable CT angiogram of the brain. 3. There is approximately 50% focal stenosis of the proximal left internal carotid artery. 4. There is mild stenosis the origin of the right vertebral artery and moderate stenosis at the origi n of the left vertebral artery. 5. A right pleural effusion is partially visualized. 6. Additional findings as above. ACT 112: Negative or not required by law. Electronically signed by: Prince Hogue M.D. 05/06/2022 7:10 AM
--- NOTE | 2022-05-06 07:27 | XRay Report ---
SINGLE VIEW CHEST CLINICAL HISTORY: Cough FINDINGS: An AP, portable, upright chest radiograph is compared to chest x-ray and chest CT dated 05/01. The examination is degraded by portable technique and apical lordotic positioning. The heart i s enlarged noting atherosclerotic calcification of the thoracic aorta. The pulmonary vasculature is n oncongested. Chronic interstitial thickening is similar to previous. There is chronic elevation of th e right hemidiaphragm with bibasilar scarring/atelectasis. No airspace consolidation or large pleural effusion is identified. No pneumothorax is seen. The skeletal structures are osteopenic. There are h ealed left-sided rib fractures. A metallic foreign body projects over the left axilla. IMPRESSION: Cardiomegaly with no acute cardiopulmonary abnormality identified. ACT 112: Negative or not required by law. Electronically signed by: Prince Hogue M.D. 05/06/2022 7:26 AM
[2022-05-06] MEDS: HEPARIN SOD 5,000 UNIT/0.5 ML VIAL SQ SCH ×2 (08:48→20:40)
[2022-05-06] MEDS: SODIUM CHLORIDE 0.9% 1000ML 1,000 ML IV SCH (08:48)
[2022-05-06] MEDS ORDERED: METOPROLOL TARTRATE 25 MG TAB PO SCH (09:00)
[2022-05-06] MEDS: FINASTERIDE 5 MG TAB PO SCH (09:00)
[2022-05-06] MEDS: POLYETHYLENE (MIRALAX) 17 GM PACK PO SCH (09:00)
--- NOTE | 2022-05-06 10:11 | Cardiology Consultation ---
Date of Consultation May 06, 2022 Assessment & Plan (1) Paroxysmal atrial fibrillation with RVR: (2) Weakness: (3) Hypoxia: (4) Cerebrovascular disease, unspecified: 86-year-old patient admitted with weakness and hypoxia developed new onset atrial fibrillation/flutter with borderline rate control overnight. Treated with intravenous digoxin and metoprolol. Heart rates are reasonable this morning. Slurred speech noted. I have concerns regarding acute versus chronic cerebrovascular accident. Would not initiate IV heparin at this time pending neurology evaluation and further imaging with MRI of the brain. Continue low- dose metoprolol 2.5 mg every 6 hours IV. Echocardiogram performed on admission demonstrates preserved LV systolic function without significant valvular pathology. TSH borderline reduced on admission with normal T4. Monitor telemetry. Agree with gentle hydration due to borderline hypotension. Findings and recommendations discussed with hospitalist. History of Present Illness Reason for Consultation: Atrial Flutter Requesting Physician: Dr. Matthias Hamilton Attending Physician: Papo Humphries MD History of Present Illness 86-year-old patient admitted 05/01/2022 secondary to weakness and hypoxia. Last night, patient developed new onset atrial fibrillation/flutter with rapid ventricular response. Prescribed intravenous digoxin and metoprolol by hospitalist. Cardiology consultation requested. Patient seen examined the bedside. Difficult to understand due to slurred speech. Answers questions appropriately. Denies chest pain or shortness of breath. Per chart review, a "stroke alert" was called last night, however, canceled by the hospitalist. There is a question of whether his speech abnormality is acute versus chronic. Carries a history of cerebrovascular accident in September 2021. [facility], patient suffered multiple recent falls. Including 1 fall with associated head trauma. CT performed on admission without evidence of intracranial pathology or hemorrhage. Patient currently strict n.p.o. Blood pressure borderline hypotensive. Receiving intravenous normal saline infusion. Allergies Allergy/AdvReac Type Severity Reaction Status Date / Time aspirin AdvReac Intermediate "GI Verified 04/05/22 10:43 UPSET/BLEED A LONG TIME AGO" Home Medications Medication Instructions Recorded Confirmed Type doxazosin 8 mg tablet 8 mg PO HS 01/01/19 05/01/22 History olopatadine 0.1 % eye drops 1 drp OPB BID 01/01/19 05/01/22 History polyethylene glycol 3350 17 17 g PO DAILY 01/01/19 05/01/22 History gram/dose oral powder simvastatin 20 mg tablet 20 mg PO HS 01/01/19 05/01/22 History finasteride 5 mg tablet 5 mg PO DAILY 07/22/21 05/01/22 History Patient History Medical History BPH (benign prostatic hyperplasia) Cerebrovascular disease, unspecified COPD (chronic obstructive pulmonary disease) Dyslipidemia Heart disease HTN (hypertension) Old myocardial infarct Squamous cell carcinoma Stomach ulcer Umbilical hernia with obstruction Unspecified circulatory system disorder Surgical History History of hernia repair Family History Father Prostate cancer Mother Stroke Social History Smoking Status: Former smoker Second Hand Exposure: No; Do You Dip or Chew Tobacco: No; Tobacco Cessation Education Requested by Patient: No Hx Alcohol Use: No Hx Substance Use: No Preferred Language: Bulgarian Communication Ability: Effective Cartoon Artist Required: No Beliefs That Will Affect Care: None marital status: Current Living Situation: Spouse current occupational status: retired How many Children do You have: 2 Other Information That Helps Us Care for You: No Feels Safe at Home: Yes Safety Concerns: Feels Safe At This Time Assistive Devices: Cane and Walker Review of Systems Review of Systems: All systems reviewed & are unremarkable except as noted in Subjective Physical Exam Constitutional: well developed and well nourished Respiratory: no respiratory distress and no labored breathing Auscultation: + crackles (Scant crackles at the left base.); no rhonchi and no wheezes Cardiovascular: Rate/Rhythm: + irregularly irregular Heart Sounds: normal S1 and normal S2; no murmur Vessels: no JVD, no carotid bruit and + radial pulses abnormal Extremities: no edema Gastrointestinal (Abdomen): Inspection/Auscultation: abdomen not distended and no abdominal edema Neurologic: Speech / Cognition: + abnormal speech Results & Data ([facility]) Vital Signs (Past 12 Hours) Vital Signs Temp Pulse Pulse Resp BP BP BP 05/06/22 06:57 37.4 C 87 17 94/55 L 05/06/22 06:47 37.5 C 68 18 95/51 L 05/06/22 06:05 118 H 140/82 05/06/22 05:18 118 H 05/06/22 05:08 136/64 05/06/22 04:00 36.3 C L 65 22 96/56 L 05/06/22 03:33 37.4 C 102 H 22 117/71 05/06/22 03:22 135 H 105/71 05/06/22 02:59 37.5 C 135 H 22 105/71 05/05/22 23:25 36.8 C 74 20 94/58 L 05/05/22 22:17 77 Pulse Ox 05/06/22 06:57 90 05/06/22 06:47 91 05/06/22 06:05 05/06/22 05:18 05/06/22 05:08 05/06/22 04:00 92 05/06/22 03:33 94 05/06/22 03:22 05/06/22 02:59 91 05/05/22 23:25 92 05/05/22 22:17
--- NOTE | 2022-05-06 14:33 | Magnetic Resonance Report ---
MR brain wo con CLINICAL HISTORY: Slurred speech. Difficulty walking. Generalized weakness.. COMPARISON STUDY: CT brain from 05/06/2022 TECHNIQUE: Multiplanar multisequence images of the Brain were performed without IV contrast. Diffusi on weighted imaging and ADC mapping was also performed. FINDINGS: Extra-axial space: There is no evidence for a subdural hematoma, There are no extra-axial fluid svetlana ections. Ventricles and cisterns: The ventricles are mildly dilated bilaterally. There is no evidence for mid line shift or mass effect. Parenchyma: There is no evidence for an acute hemorrhage or infarct. No acute diffusion abnormalities are noted on diffusion weighted imaging or ADC mapping. There is normal crow-white differentiation. There is moderate cerebral cortical atrophy present. The sulci and gyri appear normal without efface ment. The midline structures are unremarkable. The posterior fossa structures appear normal. There is no evidence for mass lesion. Osseous structures: There is very mild mucosal thickening involving the carrera of the maxillary antra bilaterally. The remaining paranasal sinuses are well aerated. The mastoid air cells are well aerated . Soft tissues: No focal soft tissue abnormalities are identified. IMPRESSION: 1. No acute intracranial abnormalities. 2. Moderate cerebral cortical atrophy. ACT 112: Negative or not required by law. Electronically signed by: Antonio Boudreaux M.D. 05/06/2022 2:31 PM
--- NOTE | 2022-05-06 14:47 | Neurology Consultation ---
Date of Consultation May 06, 2022 Assessment & Plan (1) Cerebrovascular disease, unspecified: 1. MRI with no acute findings 2. CTA head neck- 50 % focal stenosis 3. TTE no ASD 4. PT/OT speech for discharge needs 5. optimize HTN HLD DM LDL <70 consider patients age 6. a fib not on anticoagulation 7. add aspirin 81 mg if no contra indication 8. will recheck tomorrow for more involved physical (2) Weakness: Supervising Physician Co-Signing Physician Notes I have seen and discussed above patient with Dr Sandra Bryan, neurology. Patient seen and examined. He came in with weakness legs greater than arms. A stroke alert was called last evening because of increased difficulty with swallowing and increased generalized weakness. Apparently the team spoke to the patient's who indicates this is at baseline. On today's exam he is sleepy but arousable follows only minimal commands will not speak. There is normal eye movements no fixed gaze deviation pupils are equal he moves all 4 extremities to commands no pathologic reflexes are noted in the lowers Impression this patient currently appears mildly generally weak and encephalopathic. We cannot get a meaningful exam. I suspect he is sleep dep rived from last evening. We will reexamine him tomorrow to see if we see any focality vis--vis lower extremity weakness greater than upper and will determine if any additional work-up needs to be performed. Sandra Bryan MD History of Present Illness Reason for Consultation: possible CVA, worseninslurred speech, LUE weakness Requesting Physician: Papo Humphries MD Attending Physician: Papo Humphries MD History of Present Illness Cory is a 86 year old male with PMH COPD, HTN, HLD presented to [facility] ER 05/01/22 with c/o weakness. He is hard of hearing. He felt weak today and couldn't stand up. reports walked down steps and couldn't finish walking down steps and had to sit down. He was unable to stand up on his own. called EMS. No fall today. 2 weeks ago fell stepping into house and fell taking dog outside. He just started using a cane past couple of days because he had been off balance. She reports he is very forgetful. reports had suspected stroke in 09/2021 and has residual dysphasia. He never had a formal workup. No change in his speech since that time. Chronic constipation. he was here for a procedure and then had some weakness and a stroke alert was called. no one in the room to help with history. He will wake to follow commands but then falls back to sleep. Allergies Allergy/AdvReac Type Severity Reaction Status Date / Time aspirin AdvReac Intermediate "GI Verified 04/05/22 10:43 UPSET/BLEED A LONG TIME AGO" Home Medications Medication Instructions Recorded Confirmed Type doxazosin 8 mg tablet 8 mg PO HS 01/01/19 05/01/22 History olopatadine 0.1 % eye drops 1 drp OPB BID 01/01/19 05/01/22 History polyethylene glycol 3350 17 17 g PO DAILY 01/01/19 05/01/22 History gram/dose oral powder simvastatin 20 mg tablet 20 mg PO HS 01/01/19 05/01/22 History finasteride 5 mg tablet 5 mg PO DAILY 07/22/21 05/01/22 History Patient History Medical History BPH (benign prostatic hyperplasia) Cerebrovascular disease, unspecified COPD (chronic obstructive pulmonary disease) Dyslipidemia Heart disease HTN (hypertension) Old myocardial infarct Squamous cell carcinoma Stomach ulcer Umbilical hernia with obstruction Unspecified circulatory system disorder Surgical History History of hernia repair Family History Father Prostate cancer Mother Stroke Social History Smoking Status: Former smoker Second Hand Exposure: No; Do You Dip or Chew Tobacco: No; Tobacco Cessation Education Requested by Patient: No Hx Alcohol Use: No Hx Substance Use: No Preferred Language: French Communication Ability: Effective Guest Service Team Leader Required: No Beliefs That Will Affect Care: None marital status: Current Living Situation: Spouse current occupational status: retired How many Children do You have: 2 Other Information That Helps Us Care for You: No Feels Safe at Home: Yes Safety Concerns: Feels Safe At This Time Assistive Devices: Cane and Walker Review of Systems Review of Systems: All systems reviewed & are unremarkable except as noted in HPI & below Physical Exam Physical Exam: Physical Exam: Constitutional: appearance over nourished, healthy Ears, Nose, Mouth and Throat: mucous membranes moist, no injection and skin normal, eyes normal Cardiovascular: normal S-1 and S-2 and regular rate and rhythm Respiratory: clear to auscultation (CTA) and no rales, ronchi or wheeze Musculoskeletal: no peripheral edema and good distal pulses Skin: no stigmata of neurocutaneous disease noted and normal and intact Eyes: extraocular muscles intact (EOMI) and pupils equal, round and reactive to light (PERRL) NEUROLOGIC EXAMINATION: Mental status: Alert and interactive Oriented to person Speech fluent with no evidence of aphasia Cranial Nerves smile eye brow raise symmetric Reflexes: Deep tendon reflexes were symmetrical and graded 2/5. Sensory: light cool sensations decreased to mid mcgrath, vibration intact Coordination: finger to nose Gait/Stance: Posture lying in bed Motor: Negative for pronator drift of out stretched arms with eyes closed. Strength: hand senior buyer biceps triceps 5/5, hip flex 5/5. Results & Data ([facility]) Vital Signs (Past 12 Hours) Vital Signs Temp Pulse Pulse Resp BP BP BP 05/06/22 10:45 36.8 C 92 H 20 101/65 05/06/22 10:02 101 H 05/06/22 06:57 37.4 C 87 17 94/55 L 05/06/22 06:47 37.5 C 68 18 95/51 L 05/06/22 06:05 118 H 140/82 05/06/22 05:18 118 H 05/06/22 05:08 136/64 05/06/22 04:00 36.3 C L 65 22 96/56 L 05/06/22 03:33 37.4 C 102 H 22 117/71 05/06/22 03:22 135 H 105/71 05/06/22 02:59 37.5 C 135 H 22 105/71 Pulse Ox 05/06/22 10:45 91 05/06/22 10:02 05/06/22 06:57 90 05/06/22 06:47 91 05/06/22 06:05 05/06/22 05:18 05/06/22 05:08 05/06/22 04:00 92 05/06/22 03:33 94 05/06/22 03:22 07/06/22 02:59 91 Laboratory Results Abnormal lab results 05/05/22 05/06/22 05/06/22 Range/Units 16:41 03:44 03:44 RBC 3.91 L (4.7-6.1) M/uL Hgb 12.4 L (14.0-18.0) g/dL Hct 38.0 L (42-52) % RDW Std Deviation 47.3 H (36.4-46.3) fL Plt Count 119 L (130-400) K/uL MPV 11.2 H (7.4-10.4) fL Lymph # (Auto) 0.84 L (1.2-3.4) K/uL BUN/Creatinine Ratio 21.8 H (10-20) Glucose 147 H (70-99(Fasting)) mg/dl POC Glucose 109 H (70-99) mg/dl Calcium 7.7 L (8.5-10.1) mg/dl Magnesium 3.3 H (1.7-2.4) mg/dl 05/06/22 Range/Units 05:21 RBC (4.7-6.1) M/uL Hgb (14.0-18.0) g/dL Hct (42-52) % RDW Std Deviation (36.4-46.3) fL Plt Count (130-400) K/uL MPV (7.4-10.4) fL Lymph # (Auto) (1.2-3.4) K/uL BUN/Creatinine Ratio (10-20) Glucose (70-99(Fasting)) mg/dl POC Glucose 112 H (70-99) mg/dl Calcium (8.5-10.1) mg/dl Magnesium (1.7-2.4) mg/dl Diagnostic Findings CT head CTA head/neck-There is no hemorrhage, mass effect, or evidence of acute territorial ischemia by CT criteria. Unremarkable CT angiogram of the brain. There is approximately 50% focal stenosis of the proximal left internal carotid artery. There is mild stenosis the origin of the right vertebral artery and moderate stenosis at the origin of the left vertebral artery. A right pleural effusion is partially visualized. MRI brain-No acute intracranial abnormalities. Moderate cerebral cortical atrophy. CXR-Cardiomegaly with no acute cardiopulmonary abnormality identified. TTE- 60-65% no ASD
--- NOTE | 2022-05-06 15:24 | Hospitalist Progress Note ---
Date of Service May 06, 2022 Assessment & Plan (1) Weakness: Plan: PER DR. BRONSON'S NOTES WITH ADDENDUM: Patient is an 86 yr male with H/O COPD, HTN, dyslipidemia presented to ER with c/o increased weakness today and was unable to complete flight of stairs. no fall today. History falls at home 2 weeks ago Generalized weakness Multiple falls H/O CVA --CT Head:There is no hemorrhage, mass effect, or evidence of acute territorial ischemia by CT criteria. 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 Respiratory panel negative repeat CXR: no pneumonia -- monitor (2) Hypoxia: Plan: Elevated D-dimer Hypoxia Likely atelectasis H/O COPD --CTA:No pulmonary emboli identified although exam moderately compromised by respiratory motion, as described above. Cardiomegaly. Linear and groundglass opacity suggestive of atelectasis. No consolidation to suggest pneumonia. --Venous Doppler:No evidence of deep venous thrombus. Incentive spirometry Given history of COPD, titrate oxygen to keep saturations between 88 to 92% Saturating low 90s on room air (3) COPD (chronic obstructive pulmonary disease): Plan: Not on inhalers Former smoker No signs of exacerbation Monitor (4) Cerebrovascular disease, unspecified: Plan: H/O Suspected CVA in 09/2021 with residual dysphasia management per above Continue simvastatin (5) BPH (benign prostatic hyperplasia): Plan: Continue doxazosin, finasteride Abnormal EKG Echo showed no wall motion abnormality Patient denies any chest pain Chronic thrombocytopenia Monitor DVT Px Heparin SQ Code Status DNR/DNI Disposition will need Acute Rehab vs SNF Admission and Anticipated Discharge Date Admission Date: May 01, 2022 Subjective ff up for weakness, etc events overnight noted seen resting in bed, alert, oriented x 2 and grandson at bedside visiting states he feels ok overall, just "dry" no chest pain, dyspnea, palpitations, dizziness (+) increased L UE weakness (+) increased slurred speech denies dysphagia no other symptoms Review of Systems Review of Systems: all noted and negative except for above Physical Exam Physical Exam: General- oriented x 2, not in distress, speaks in sentences with no effort or accessory muscle use Eyes- anicteric Neck- no JVD Lungs- clear breath sounds bilaterally, no rales/wheezes Heart- normal rate, irregularly irregular rhythm; no murmurs Abdomen- normal bowel sounds, nondistended, soft, nontender Extremities- no pretibial edema, no calf tenderness Neuro- alert, oriented x 2; (+) moderate slurred speech, LUE motor strength 2- 3/5 no other focal deficits noted Skin- warm & dry Results & Data Results & Data ([facility]) Vital Signs (Past 12 Hours) Vital Signs Temp Pulse Pulse Resp BP BP BP 05/06/22 15:15 36.8 C 64 17 111/65 05/06/22 15:13 72 05/06/22 10:45 36.8 C 92 H 20 101/65 05/06/22 10:02 101 H 05/06/22 06:57 37.4 C 87 17 94/55 L 05/06/22 06:47 37.5 C 68 18 95/51 L 05/06/22 06:05 118 H 140/82 05/06/22 05:18 118 H 05/06/22 05:08 136/64 05/06/22 04:00 36.3 C L 65 22 96/56 L 05/06/22 03:33 37.4 C 102 H 22 117/71 Pulse Ox 05/06/22 15:15 93 05/06/22 15:13 05/06/22 10:45 91 05/06/22 10:02 05/06/22 06:57 90 05/06/22 06:47 91 05/06/22 06:05 05/06/22 05:18 05/06/22 05:08 05/06/22 04:00 92 05/06/22 03:33 94 all noted and reviewed including below (1) COPD (chronic obstructive pulmonary disease) COPD type: unspecified COPD Qualified Code(s): J44.9 - Chronic obstructive pulmonary disease, unspecified
[2022-05-06] MEDS: SIMVASTATIN 20 MG TAB PO SCH (20:39)
--- NOTE | 2022-05-06 22:46 | Electrocardiogram Report ---
Test Reason : Blood Pressure : / mmHG Vent. Rate : 117 BPM Atrial Rate : 300 BPM P-R Int : 000 ms QRS Dur : 104 ms QT Int : 336 ms P-R-T Axes : 000 -38 118 degrees QTc Int : 468 ms Atrial flutter /fibrillation with rapid ventricular response Left axis deviation Left ventricular hypertrophy with repolarization abnormality Abnormal ECG When compared with ECG of 02-MAY-2022 06:09, Atrial flutter /fibrillation has replaced Sinus rhythm Confirmed by Donte Lentz ([id number]) on 05/06/2022 10:46:11 PM Referred By: REFERRED SELF Confirmed By:Donte Lentz
[2022-05-07] MEDS: PIPERACILLIN/TAZOBACTAM 3.375 GM in DEXTROSE 5% 100 ML IV SCH ×3 (04:08→20:45)
[2022-05-07] MEDS: SODIUM CHLORIDE 0.9% 1000ML 1,000 ML IV SCH ×2 (04:09→16:54)
[2022-05-07] MEDS: POLYETHYLENE (MIRALAX) 17 GM PACK PO SCH (08:11)
[2022-05-07] MEDS: HEPARIN SOD 5,000 UNIT/0.5 ML VIAL SQ SCH ×2 (08:11→20:50)
[2022-05-07] MEDS: FINASTERIDE 5 MG TAB PO SCH (08:11)
[2022-05-07] MEDS ORDERED: AMIODARONE 200 MG TAB PO ONE (11:14)
--- NOTE | 2022-05-07 11:17 | Cardiology Progress Note ---
Date of Service May 07, 2022 Assessment & Plan (1) Paroxysmal atrial fibrillation with RVR: (2) Weakness: (3) Hypoxia: (4) Cerebrovascular disease, unspecified: Plan: 86-year-old patient admitted with weakness and hypoxia developed new onset atrial fibrillation with spontaneous conversion to normal sinus rhythm. He is not a strong candidate for chronic anticoagulation due to significant fall risk. Attempt to maintain rhythm control with amiodarone. 200 mg twice daily ordered. Discontinue IV metoprolol. Add low-dose aspirin, 81 mg daily. Admission and Anticipated Discharge Date Admission Date: May 01, 2022 Subjective Patient seen examined the bedside. More alert today. Denies chest pain or palpitations converted to sinus rhythm yesterday at approximately 2:20 PM. ECG this morning confirms sinus rhythm. MRI without evidence of cerebrovascular accident. Patient offers no concerns/complaints. Review of Systems Review of Systems: All systems reviewed & are unremarkable except as noted in Subjective Physical Exam Constitutional: well developed and well nourished Respiratory: no respiratory distress and no labored breathing Auscultation: + crackles (Scant crackles at the left base.); no rhonchi and no wheezes Cardiovascular: Rate/Rhythm: + irregularly irregular Heart Sounds: normal S1 and normal S2; no murmur Vessels: no JVD, no carotid bruit and + radial pulses abnormal Extremities: no edema Gastrointestinal (Abdomen): Inspection/Auscultation: abdomen not distended and no abdominal edema Neurologic: Speech / Cognition: + abnormal speech Results & Data ([facility]) Vital Signs (Past 12 Hours) Vital Signs Temp Pulse Pulse Resp BP BP Pulse Ox 05/07/22 11:10 36.5 C 73 20 134/76 93 05/07/22 07:38 63 05/07/22 06:54 36.6 C 63 17 136/83 96 05/07/22 02:58 36.9 C 69 20 127/72 95 05/06/22 23:58 69 05/06/22 23:46 36.7 C 66 18 126/71 92
--- NOTE | 2022-05-07 11:46 | Neurology Progress Note ---
Date of Service May 07, 2022 Assessment & Plan (1) Cerebrovascular disease, unspecified: Plan: 1. MRI with no acute findings 2. CTA head neck- 50 % focal stenosis 3. TTE no ASD 4. PT/OT speech for discharge needs 5. optimize HTN HLD DM LDL <70 consider patients age 6. a fib not on anticoagulation 7. add aspirin 81 mg if no contra indication 8. will need placement at discharge (2) Weakness: Plan: 1. LE weakness will need PT input for further recommenations Admission and Anticipated Discharge Date Admission Date: May 01, 2022 Supervising Physician Co-Signing Physician Notes I have seen and discussed above patient with Dr Sandra Bryan, neurologyPt seen and examined. More awake and alert. No complaints denies numbness, back pain incontinence. Thought process slow. Atrophy of ulnar intrinsics, no other atrophy or fasc. Tongue dev mildly to r, no atrophy. No facial mask, Weakness of the bl ulnar intrinsics. LE at least 4/5, areflexic in the lowers, toes down, no vibration at knees, knee level to temp. Pt with probable cognitive impairment, will need to be explored more with family. 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 Dr Villatoro will take over service tomorr and attempt to ambulate Labs for tx causes neuropathy, B12, folate, tsh, rpr immunofixation. Will need ncv as outpt. MD Elizabeth Linwood Ray is a 86 year old male with PMH COPD, HTN, HLD presented to [facility] ER 05/01/22 with c/o weakness. He is hard of hearing. He felt weak today and couldn't stand up. reports walked down steps and couldn't finish walking down steps and had to sit down. He was unable to stand up on his own. called EMS. No fall today. 2 weeks ago fell stepping into house and fell taking dog outside. He just started using a cane past couple of days because he had been off balance. She reports he is very forgetful. reports had suspected stroke in 09/2021 and has residual dysphasia. He never had a formal workup. No change in his speech since that time. Chronic constipation. he was here for a procedure and then had some weakness and a stroke alert was called. he is awake today and answering simple questions Review of Systems Review of Systems: All systems reviewed & are unremarkable except as noted in HPI & below Physical Exam Physical Exam: Physical Exam: Constitutional: appearance over nourished, healthy Ears, Nose, Mouth and Throat: mucous membranes moist, no injection and skin normal, eyes normal Cardiovascular: normal S-1 and S-2 and regular rate and rhythm Respiratory: clear to auscultation (CTA) and no rales, ronchi or wheeze Musculoskeletal: no peripheral edema and good distal pulses Skin: no stigmata of neurocutaneous disease noted and normal and intact Eyes: extraocular muscles intact (EOMI) and pupils equal, round and reactive to light (PERRL) NEUROLOGIC EXAMINATION: Mental status: Alert and interactive Oriented to person Speech dysphasic speech difficult to understand Cranial Nerves smile eye brow raise symmetric Reflexes: Deep tendon reflexes were symmetrical and graded 2/5. Sensory: light cool sensations decreased to mid mcgrath, vibration intact, GT proprioception absent Coordination: finger to nose Gait/Stance: Posture lying in bed Motor: Negative for pronator drift of out stretched arms with eyes closed. Strength: hand hostel parent biceps triceps 5/5, hip flex 4/5 Results & Data ([facility]) Vital Signs (Past 12 Hours) Vital Signs Temp Pulse Pulse Resp BP BP Pulse Ox 05/07/22 11:10 36.5 C 73 20 134/76 93 05/07/22 07:38 63 05/07/22 06:54 36.6 C 63 17 136/83 96 05/07/22 02:58 36.9 C 69 20 127/72 95 05/06/22 23:58 69 05/06/22 23:46 36.7 C 66 18 126/71 92 Laboratory Results no new labs Diagnostic Findings no new imaging
[2022-05-07] MEDS ORDERED: METOPROLOL TARTRATE 1 MG/ML VIAL IV SCH (12:00)
[2022-05-07] MEDS: ASPIRIN 81 MG ECTAB PO SCH (12:02)
[2022-05-07] MEDS ORDERED: CYANOCOBALAMIN 1000 MCG/ML VIAL IM ONE (15:47)
[2022-05-07] MEDS ORDERED: THIAMINE HCL 200 MG in SODIUM CHLORIDE 0.9% 50 ML IV ONE (16:00)
[2022-05-07] MEDS: AMIODARONE 200 MG TAB PO SCH (16:50)
[2022-05-07] MEDS: guaiFENesin 600 MG TABCR PO SCH (20:49)
[2022-05-07] MEDS: SIMVASTATIN 20 MG TAB PO SCH (20:49)
[2022-05-07] MEDS: [UNRECOGNIZED DRUG - REMARK] OP SCH (22:50)
--- NOTE | 2022-05-07 23:14 | Hospitalist Progress Note ---
Date of Service May 07, 2022 Assessment & Plan (1) Weakness: Plan: Patient is an 86 yr male with H/O COPD, HTN, dyslipidemia presented to ER with c/o increased weakness and was unable to complete flight of stairs. no fall today. History falls at home 2 weeks ago Generalized weakness Multiple falls H/O CVA --CT Head:There is no hemorrhage, mass effect, or evidence of acute territorial ischemia by CT criteria. 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 Respiratory panel negative repeat CXR: no pneumonia -- resolved, monitor (2) Hypoxia: Plan: Elevated D-dimer Hypoxia Likely atelectasis H/O COPD --CTA:No pulmonary emboli identified although exam moderately compromised by respiratory motion, as described above. Cardiomegaly. Linear and groundglass opacity suggestive of atelectasis. No consolidation to suggest pneumonia. --Venous Doppler:No evidence of deep venous thrombus. Incentive spirometry Given history of COPD, titrate oxygen to keep saturations between 88 to 92% Saturating low 90s on room air (3) COPD (chronic obstructive pulmonary disease): Plan: Not on inhalers Former smoker No signs of exacerbation Monitor (4) Cerebrovascular disease, unspecified: Plan: H/O Suspected CVA in 09/2021 with residual dysphasia management per above Continue simvastatin (5) BPH (benign prostatic hyperplasia): Plan: Continue doxazosin, finasteride Abnormal EKG Echo showed no wall motion abnormality Patient denies any chest pain Chronic thrombocytopenia Monitor DVT Px Heparin SQ Code Status DNR/DNI Disposition will need Acute Rehab vs SNF Admission and Anticipated Discharge Date Admission Date: May 01, 2022 Subjective Pt seen in follow up of weakness (dg. on admission), developed afib w/ rvr while inpt, concern for cva (stroke alert while inpt) Pt converted back to sinus rhythm, now on amiodarone per cardiology, ASA added Neurology also consulted and following, appreciate their input Pt is sitting up in bed in NAD He is awake alert able to answer simple questions, speech is somewhat difficult to understand no chest pain, dyspnea, palpitations, dizziness no fever, chills, abd. pain, n/v (+) increased L UE weakness (+) increased slurred speech denies dysphagia no other symptoms Review of Systems Review of Systems: All systems reviewed & are unremarkable except as noted in Subjective Physical Exam Physical Exam: General- elderly M, not in distress Eyes- anicteric Neck- supple, no JVD Lungs- clear breath sounds bilaterally, mild bibasilar crackles, no wheezes Heart- RRR no murmurs Abdomen- normal bowel sounds, nondistended, soft, nontender Extremities- no pretibial edema, no calf tenderness Neuro- awake and alert, able to answer simple questions appropriately, (+) moderate slurred speech, LUE motor strength 2-3/5 no other focal deficits noted, gait not assessed Skin- warm & dry Results & Data Results & Data ([facility]) Vital Signs (Past 12 Hours) Vital Signs Temp Pulse Pulse Resp BP BP Pulse Ox 05/07/22 22:57 78 05/07/22 19:40 36.7 C 68 20 145/70 H 91 05/07/22 14:58 93 05/07/22 14:52 63 05/07/22 14:35 36.4 C L 63 19 145/77 H 93 Medications Administered Current Inpatient Medications Acetaminophen (Acetaminophen 325 Mg Tab) 650 mg PO Q4H PRN PRN Reason: Pain or Fever Stop: 05/31/22 16:02 Last Admin: 05/03/22 19:52 Dose: 650 mg Documented by: Amiodarone HCl (Amiodarone 200 Mg Tab) 200 mg PO BIDM [facility] Stop: 06/06/22 16:59 Last Admin: 05/07/22 16:50 Dose: 200 mg Documented by: Aspirin (Aspirin 81 Mg Ectab) 81 mg PO DAILY [facility] Stop: 06/06/22 11:29 Last Admin: 05/07/22 12:02 Dose: 81 mg Documented by: Benzonatate (Benzonatate 100 Mg Capsule) 100 mg PO TID PRN PRN Reason: Cough Stop: 06/06/22 23:48 Last Admin: 05/07/22 23:56 Dose: 100 mg Documented by: Cyanocobalamin (Cyanocobalamin (B-12) 500 Mcg Tablet) 1,000 mcg PO QAM [facility] Stop: 06/07/22 08:59 Doxazosin Mesylate (Doxazosin Mesylate 4 Mg Tab) 8 mg PO HS [facility] Stop: 05/31/22 20:59 Last Admin: 05/05/22 20:46 Dose: 8 mg Documented by: Finasteride (Finasteride 5 Mg Tab) 5 mg PO DAILY [facility] Stop: 06/01/22 08:59 Last Admin: 05/07/22 08:11 Dose: 5 mg Documented by: Guaifenesin (Guaifenesin 600 Mg Tabcr) 600 mg PO Q12 [facility] Stop: 06/06/22 20:59 Last Admin: 05/07/22 20:49 Dose: 600 mg Documented by: Heparin Sodium (Porcine) (Heparin Sod 5,000 Unit/0.5 Ml Vial) 5,000 units SQ Q12 [facility] Stop: 05/31/22 20:59 Last Admin: 05/07/22 20:50 Dose: 5,000 units Documented by: Piperacillin Sod/Tazobactam (Sod 3.375 gm/ Dextrose) 115 mls @ 28.75 mls/hr IV Q8H [facility]; Protocol Stop: 05/12/22 03:59 Last Infusion: 05/08/22 00:51 Dose: Infused Documented by: Promethazine HCl 12.5 mg/ (Sodium Chloride) 50.5 mls @ 202 mls/hr IV Q6H PRN PRN Reason: Nausea And Vomiting Stop: 06/05/22 06:46 Sodium Chloride (Nss 1000ml) 1,000 mls @ 60 mls/hr IV .[id number] [facility] Stop: 06/05/22 07:29 Last Admin: 05/07/22 16:54 Dose: 60 mls/hr Documented by: Olopatadine 0.1% -- (Non-Form Pt Own Med) 1 ea OP BID [facility] Stop: 06/06/22 21:59 Last Admin: 05/07/22 22:50 Dose: 2 drops Documented by: Polyethylene Glycol (Polyethylene (Miralax) 17 Gm Pack) 17 gm PO DAILY [facility] Stop: 06/01/22 08:59 Last Admin: 05/07/22 08:11 Dose: 17 gm Documented by: Simvastatin (Simvastatin 20 Mg Tab) 20 mg PO HS [facility] Stop: 05/31/22 20:59 Last Admin: 05/07/22 20:49 Dose: 20 mg Documented by: Thiamine HCl (Thiamine Hcl 100 Mg Tab) 100 mg PO QAM [facility] Stop: 06/07/22 08:59 (1) COPD (chronic obstructive pulmonary disease) COPD type: unspecified COPD Qualified Code(s): J44.9 - Chronic obstructive pulmonary disease, unspecified
[2022-05-07] MEDS: BENZONATATE 100 MG CAPSULE PO PRN (23:56)
[2022-05-08] MEDS: PIPERACILLIN/TAZOBACTAM 3.375 GM in DEXTROSE 5% 100 ML IV SCH ×3 (04:06→20:03)
--- NOTE | 2022-05-08 06:07 | Electrocardiogram Report ---
Test Reason : Blood Pressure : / mmHG Vent. Rate : 071 BPM Atrial Rate : 071 BPM P-R Int : 146 ms QRS Dur : 104 ms QT Int : 420 ms P-R-T Axes : 044 -30 119 degrees QTc Int : 456 ms Normal sinus rhythm Left axis deviation Abnormal ECG When compared with ECG of 06-MAY-2022 03:08, Sinus rhythm has replaced Atrial flutter Vent. rate has decreased BY 46 BPM Confirmed by Donte Lentz ([id number]) on 05/08/2022 6:07:17 AM Referred By: REFERRED SELF Confirmed By:Donte Lentz
[2022-05-08 08:11] LABS: BUN Creatinine Ratio 19.6 (10-20); Calcium 8.2 mg/dl (8.5-10.1); Creatinine Clr Calc Pharmacy 71.8 ml/min; Est GFR (African American) 86.4 ml/min; Est GFR (Non-African American) 74.5 ml/min; Magnesium 1.9 mg/dl (1.7-2.4); Phosphorus 2.5 mg/dl (2.5-4.9); Potassium 3.8 mmol/L (3.5-5.1)
[2022-05-08 08:15] LABS: Procalcitonin 0.09 ng/ml (0-0.5)
[2022-05-08 08:27] LABS: Hematocrit (blood only) 39.4 % (40.1-51.0); Hemoglobin 12.9 g/dl (14.0-18.0); Mean Corpuscular Hemoglobin 31.9 pg (25.0-34.0); Mean Corpuscular Hgb Conc 32.7 g/dL (32.0-36.0); Mean Corpuscular Volume 97.3 fL (80.0-100.0); Mean Platelet Volume 12.5 fL (9.4-12.4); Platelet Count 110 K/uL (130-400); RDW Coefficient of Variation 12.5 % (11.5-14.5); RDW Standard Deviation 45.1 fL (36.4-46.3); Red Blood Count 4.05 M/uL (4.63-6.08); White Blood Count 5.83 K/ul (4.8-10.8)
[2022-05-08 08:28] LABS: Platelet Estimate Normal (Normal)
[2022-05-08] MEDS: HEPARIN SOD 5,000 UNIT/0.5 ML VIAL SQ SCH ×2 (08:49→20:10)
[2022-05-08] MEDS: [UNRECOGNIZED DRUG - REMARK] OP SCH ×2 (08:49→20:09)
[2022-05-08] MEDS: guaiFENesin 600 MG TABCR PO SCH ×2 (08:49→20:09)
[2022-05-08] MEDS: ASPIRIN 81 MG ECTAB PO SCH (08:50)
[2022-05-08] MEDS: CYANOCOBALAMIN (B-12) 500 MCG TABLET PO SCH (08:50)
[2022-05-08] MEDS: AMIODARONE 200 MG TAB PO SCH ×2 (08:50→16:15)
[2022-05-08] MEDS: THIAMINE HCL 100 MG TAB PO SCH (08:50)
[2022-05-08] MEDS: FINASTERIDE 5 MG TAB PO SCH (08:50)
[2022-05-08] MEDS: SODIUM CHLORIDE 0.9% 1000ML 1,000 ML IV SCH (08:55)
[2022-05-08] MEDS: POLYETHYLENE (MIRALAX) 17 GM PACK PO SCH (08:55)
--- NOTE | 2022-05-08 10:00 | Cardiology Progress Note ---
Date of Service May 08, 2022 Assessment & Plan (1) Paroxysmal atrial fibrillation with RVR: (2) Weakness: (3) Hypoxia: (4) Cerebrovascular disease, unspecified: Plan: 86-year-old patient admitted with weakness and hypoxia developed new onset atrial fibrillation with spontaneous conversion to normal sinus rhythm. He is not a strong candidate for chronic anticoagulation due to significant fall risk. Amiodarone 200 mg twice daily ordered yesterday, 05/07/2022. Continue low-dose aspirin. Admission and Anticipated Discharge Date Admission Date: May 01, 2022 Subjective Patient seen examined the bedside. No changes overnight. Blood pressure mildly elevated. Denies chest pain or unusual shortness of breath. Telemetry reveals sinus rhythm. Review of Systems Review of Systems: All systems reviewed & are unremarkable except as noted in Subjective Physical Exam Constitutional: well developed and well nourished Respiratory: no respiratory distress and no labored breathing Auscultation: + crackles (Scant crackles at the left base.); no rhonchi and no wheezes Cardiovascular: Rate/Rhythm: + irregularly irregular Heart Sounds: normal S1 and normal S2; no murmur Vessels: no JVD, no carotid bruit and + radial pulses abnormal Extremities: no edema Gastrointestinal (Abdomen): Inspection/Auscultation: abdomen not distended and no abdominal edema Neurologic: Speech / Cognition: + abnormal speech Results & Data ([facility]) Vital Signs (Past 12 Hours) Vital Signs Temp Pulse Pulse Resp BP BP Pulse Ox 05/08/22 08:12 36.7 C 79 16 168/93 H 92 05/08/22 07:01 79 05/08/22 03:10 36.7 C 70 20 168/90 H 92 05/07/22 23:22 36.8 C 80 20 174/87 H 92 05/07/22 22:57 78
--- NOTE | 2022-05-08 14:38 | Hospitalist Progress Note ---
Date of Service May 08, 2022 Assessment & Plan (1) Weakness: Plan: Patient is an 86 yr male with H/O COPD, HTN, dyslipidemia presented to ER with c/o increased weakness and was unable to complete flight of stairs. no fall today. History falls at home 2 weeks ago Generalized weakness Multiple falls H/O CVA --CT Head:There is no hemorrhage, mass effect, or evidence of acute territorial ischemia by CT criteria. 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 to monitor continue usual Lipitor Neurology consulted, appreciate their input -- Speech Therapist: easy to chew diet -- will need to transition to rehab Fever Unclear source of infection Blood culture No growth to date UA not suggestive of UTI CTA showed no signs of consolidation. Respiratory panel negative repeat CXR: no pneumonia -- resolved, monitor (2) Hypoxia: Plan: Elevated D-dimer Hypoxia Likely atelectasis H/O COPD --CTA:No pulmonary emboli identified although exam moderately compromised by respiratory motion, as described above. Cardiomegaly. Linear and groundglass opacity suggestive of atelectasis. No consolidation to suggest pneumonia. --Venous Doppler:No evidence of deep venous thrombus. Incentive spirometry Given history of COPD, titrate oxygen to keep saturations between 88 to 92% Saturating low 90s on room air (3) COPD (chronic obstructive pulmonary disease): Plan: Not on inhalers Former smoker No signs of exacerbation Monitor (4) Cerebrovascular disease, unspecified: Plan: H/O Suspected CVA in 09/2021 with residual dysphasia management per above Continue simvastatin (5) BPH (benign prostatic hyperplasia): Plan: Continue doxazosin, finasteride Abnormal EKG Echo showed no wall motion abnormality Patient denies any chest pain Chronic thrombocytopenia Monitor DVT Px: Heparin SQ Code Status: DNR/DNI Disposition: will need Acute Rehab vs SNF, plan for [facility] Admission and Anticipated Discharge Date Admission Date: May 01, 2022 Subjective Pt seen in follow up of weakness (dg. on admission), developed afib w/ rvr while inpt, concern for cva (stroke alert while inpt) Pt converted back to sinus rhythm, now on amiodarone per cardiology, ASA added Neurology also consulted and following, appreciate their input Pt is sitting up in bed in NAD He is awake alert able to answer simple questions, speech is somewhat difficult to understand at times Patient's is at the bedside, reports that patient is speaking much better and looks better Reports some chronic slurred speech no chest pain, dyspnea, palpitations, dizziness no fever, chills, abd. pain, n/v denies cough, denies dysphagia no other symptoms Review of Systems Review of Systems: All systems reviewed & are unremarkable except as noted in Subjective Physical Exam Physical Exam: General- elderly M, not in distress Eyes- anicteric Neck- supple, no JVD Lungs- clear breath sounds bilaterally, mild bibasilar crackles, no wheezes Heart- RRR no murmurs Abdomen- normal bowel sounds, nondistended, soft, nontender Extremities- no pretibial edema, no calf tenderness Neuro- awake and alert, able to answer simple questions appropriately, (+) slurred speech, +LUE weakness no other focal deficits noted, gait not assessed Skin- warm & dry Results & Data Results & Data ([facility]) Vital Signs (Past 12 Hours) Vital Signs Temp Pulse Pulse Resp BP BP Pulse Ox 05/08/22 12:09 36.6 C 75 16 153/80 H 93 05/08/22 08:12 36.7 C 79 16 168/93 H 92 05/08/22 07:01 79 05/08/22 03:10 36.7 C 70 20 168/90 H 92 Laboratory Results 05/08/22 05/08/22 05/08/22 Range/Units 06:04 06:04 06:04 WBC (4.8-10.8) K/ul RBC (4.63-6.08) M/uL Hgb (14.0-18.0) g/dl Hct (40.1-51.0) % MCV (80.0-100.0) fL MCH (25.0-34.0) pg MCHC (32.0-36.0) g/dL RDW Std Deviation (36.4-46.3) fL RDW Coeff of [place]one (11.5-14.5) % Plt Count (130-400) K/uL MPV (9.4-12.4) fL Platelet Estimate (Normal) Sodium 135 L (136-145) mmol/L Potassium 3.8 (3.5-5.1) mmol/L Chloride 102 (98-107) mmol/L Carbon Dioxide 27 (21-32) mmol/L Anion Gap 6 (3-11) BUN 18 (6-23) mg/dl Creatinine 0.92 (0.6-1.4) mg/dl Est Cr Clr Drug Dosing 71.8 ml/min Est GFR ( Amer) 86.4 ml/min Est GFR (Non-Af Amer) 74.5 ml/min BUN/Creatinine Ratio 19.6 (10-20) Glucose 111 H (70-99(Fasting)) mg/dl Calcium 8.2 L (8.5-10.1) mg/dl Phosphorus 2.5 (2.5-4.9) mg/dl Magnesium 1.9 (1.7-2.4) mg/dl Folate 16.68 (>5.38) ng/ml Procalcitonin 0.09 (0-0.5) ng/ml RPR Pending 05/08/22 Range/Units 06:04 WBC 5.83 (4.8-10.8) K/ul RBC 4.05 L (4.63-6.08) M/uL Hgb 12.9 L (14.0-18.0) g/dl Hct 39.4 L (40.1-51.0) % MCV 97.3 (80.0-100.0) fL MCH 31.9 (25.0-34.0) pg MCHC 32.7 (32.0-36.0) g/dL RDW Std Deviation 45.1 (36.4-46.3) fL RDW Coeff of [place]one 12.5 (11.5-14.5) % Plt Count 110 L (130-400) K/uL MPV 12.5 H (9.4-12.4) fL Platelet Estimate Normal (Normal) Sodium (136-145) mmol/L Potassium (3.5-5.1) mmol/L Chloride (98-107) mmol/L Carbon Dioxide (21-32) mmol/L Anion Gap (3-11) BUN (6-23) mg/dl Creatinine (0.6-1.4) mg/dl Est Cr Clr Drug Dosing ml/min Est GFR ( Amer) ml/min Est GFR (Non-Af Amer) ml/min BUN/Creatinine Ratio (10-20) Glucose (70-99(Fasting)) mg/dl Calcium (8.5-10.1) mg/dl Phosphorus (2.5-4.9) mg/dl Magnesium (1.7-2.4) mg/dl Folate (>5.38) ng/ml Procalcitonin (0-0.5) ng/ml RPR Medications Administered Current Inpatient Medications Acetaminophen (Acetaminophen 325 Mg Tab) 650 mg PO Q4H PRN PRN Reason: Pain or Fever Stop: 05/31/22 16:02 Last Admin: 05/03/22 19:52 Dose: 650 mg Documented by: Amiodarone HCl (Amiodarone 200 Mg Tab) 200 mg PO BIDM [facility] Stop: 06/06/22 16:59 Last Admin: 05/08/22 08:50 Dose: 200 mg Documented by: Aspirin (Aspirin 81 Mg Ectab) 81 mg PO DAILY [facility] Stop: 06/06/22 11:29 Last Admin: 05/08/22 08:50 Dose: 81 mg Documented by: Benzonatate (Benzonatate 100 Mg Capsule) 100 mg PO TID PRN PRN Reason: Cough Stop: 06/06/22 23:48 Last Admin: 05/07/22 23:56 Dose: 100 mg Documented by: Cyanocobalamin (Cyanocobalamin (B-12) 500 Mcg Tablet) 1,000 mcg PO QAM [facility] Stop: 06/07/22 08:59 Last Admin: 05/08/22 08:50 Dose: 1,000 mcg Documented by: Doxazosin Mesylate (Doxazosin Mesylate 4 Mg Tab) 8 mg PO HS [facility] Stop: 05/31/22 20:59 Last Admin: 05/05/22 20:46 Dose: 8 mg Documented by: Finasteride (Finasteride 5 Mg Tab) 5 mg PO DAILY [facility] Stop: 06/01/22 08:59 Last Admin: 05/08/22 08:50 Dose: 5 mg Documented by: Guaifenesin (Guaifenesin 600 Mg Tabcr) 600 mg PO Q12 [facility] Stop: 06/06/22 20:59 Last Admin: 05/08/22 08:49 Dose: 600 mg Documented by: Heparin Sodium (Porcine) (Heparin Sod 5,000 Unit/0.5 Ml Vial) 5,000 units SQ Q12 [facility] Stop: 05/31/22 20:59 Last Admin: 05/08/22 08:49 Dose: 5,000 units Documented by: Piperacillin Sod/Tazobactam (Sod 3.375 gm/ Dextrose) 115 mls @ 28.75 mls/hr IV Q8H [facility]; Protocol Stop: 05/12/22 03:59 Last Admin: 05/08/22 11:49 Dose: 28.8 mls/hr Documented by: Promethazine HCl 12.5 mg/ (Sodium Chloride) 50.5 mls @ 202 mls/hr IV Q6H PRN PRN Reason: Nausea And Vomiting Stop: 06/05/22 06:46 Sodium Chloride (Nss 1000ml) 1,000 mls @ 60 mls/hr IV .[id number] [facility] Stop: 06/05/22 07:29 Last Admin: 05/08/22 08:55 Dose: 60 mls/hr Documented by: Olopatadine 0.1% -- (Non-Form Pt Own Med) 1 ea OP BID [facility] Stop: 06/06/22 21:59 Last Admin: 05/08/22 08:49 Dose: 1 drops Documented by: Polyethylene Glycol (Polyethylene (Miralax) 17 Gm Pack) 17 gm PO DAILY [facility] Stop: 06/01/22 08:59 Last Admin: 05/08/22 08:55 Dose: 17 gm Documented by: Simvastatin (Simvastatin 20 Mg Tab) 20 mg PO HS [facility] Stop: 05/31/22 20:59 Last Admin: 05/07/22 20:49 Dose: 20 mg Documented by: Thiamine HCl (Thiamine Hcl 100 Mg Tab) 100 mg PO QAM [facility] Stop: 06/07/22 08:59 Last Admin: 05/08/22 08:50 Dose: 100 mg Documented by: (1) COPD (chronic obstructive pulmonary disease) COPD type: unspecified COPD Qualified Code(s): J44.9 - Chronic obstructive pulmonary disease, unspecified
--- NOTE | 2022-05-08 16:00 | Communication Note ---
Date of Service: May 08, 2022 rich is up bedside with respiratory. His is in the room. He is improving while in the hospital. we will arrange an outpatient EMG for evaluation of SANCHEZ justin. will sign off for now OK to discharge once medically stable. I have discussed above patient with Dr Zachary Villatoro
[2022-05-08] MEDS: SIMVASTATIN 20 MG TAB PO SCH (20:09)
[2022-05-09] MEDS: BENZONATATE 100 MG CAPSULE PO PRN (00:34)
[2022-05-09] MEDS: SODIUM CHLORIDE 0.9% 1000ML 1,000 ML IV SCH (01:36)
[2022-05-09 01:54] LABS: Rapid Plasma Reagin Nonreactive (Nonreactive)
[2022-05-09] MEDS: PIPERACILLIN/TAZOBACTAM 3.375 GM in DEXTROSE 5% 100 ML IV SCH ×2 (03:40→11:32)
[2022-05-09] MEDS: guaiFENesin 600 MG TABCR PO SCH ×2 (08:29→20:13)
[2022-05-09] MEDS: AMIODARONE 200 MG TAB PO SCH ×2 (08:29→17:12)
[2022-05-09] MEDS: FINASTERIDE 5 MG TAB PO SCH (08:29)
[2022-05-09] MEDS: ASPIRIN 81 MG ECTAB PO SCH (08:30)
[2022-05-09] MEDS: CYANOCOBALAMIN (B-12) 500 MCG TABLET PO SCH (08:30)
[2022-05-09] MEDS: THIAMINE HCL 100 MG TAB PO SCH (08:30)
[2022-05-09] MEDS: [UNRECOGNIZED DRUG - REMARK] OP SCH ×2 (08:31→20:13)
[2022-05-09] MEDS: POLYETHYLENE (MIRALAX) 17 GM PACK PO SCH (08:33)
[2022-05-09] MEDS: HEPARIN SOD 5,000 UNIT/0.5 ML VIAL SQ SCH ×2 (08:33→20:11)
--- NOTE | 2022-05-09 12:55 | Hospitalist Progress Note ---
Date of Service May 09, 2022 Assessment & Plan (1) Weakness: Plan: Patient is an 86 yr male with H/O COPD, HTN, dyslipidemia presented to ER with c/o increased weakness and was unable to complete flight of stairs. no fall today. History falls at home 2 weeks ago Generalized weakness Multiple falls H/O CVA --CT Head:There is no hemorrhage, mass effect, or evidence of acute territorial ischemia by CT criteria. 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 to monitor continue usual Lipitor Neurology consulted, appreciate their input -- Speech Therapist: easy to chew diet -- will need to transition to rehab Fever Unclear source of infection Blood culture No growth to date UA not suggestive of UTI CTA showed no signs of consolidation. Respiratory panel negative repeat CXR: no pneumonia -- resolved, monitor (2) Hypoxia: Plan: Elevated D-dimer Hypoxia Likely atelectasis H/O COPD --CTA:No pulmonary emboli identified although exam moderately compromised by respiratory motion, as described above. Cardiomegaly. Linear and groundglass opacity suggestive of atelectasis. No consolidation to suggest pneumonia. --Venous Doppler:No evidence of deep venous thrombus. Incentive spirometry Given history of COPD, titrate oxygen to keep saturations between 88 to 92% Saturating low 90s on room air (3) COPD (chronic obstructive pulmonary disease): Plan: Not on inhalers Former smoker No signs of exacerbation Monitor (4) Cerebrovascular disease, unspecified: Plan: H/O Suspected CVA in 09/2021 with residual dysphasia management per above Continue simvastatin (5) BPH (benign prostatic hyperplasia): Plan: Continue doxazosin, finasteride Abnormal EKG Echo showed no wall motion abnormality Patient denies any chest pain Chronic thrombocytopenia Monitor DVT Px: Heparin SQ Code Status: DNR/DNI Disposition: will need Acute Rehab vs SNF, plan for [facility] Admission and Anticipated Discharge Date Admission Date: May 01, 2022 Subjective Pt seen in follow up of weakness (dg. on admission), developed afib w/ rvr while inpt, concern for cva (stroke alert while inpt) Pt converted back to sinus rhythm, now on amiodarone per cardiology, ASA added Neurology also consulted and following, appreciate their input Pt is sitting up in bed in NAD He is awake alert able to answer simple questions, speech is somewhat difficult to understand at times Patient's and other family members are at the bedside Overall, patient is speaking much better and looks better Reports some chronic slurred speech no chest pain, dyspnea, palpitations, dizziness no fever, chills, abd. pain, n/v denies cough, denies dysphagia no other symptoms Review of Systems Review of Systems: All systems reviewed & are unremarkable except as noted in Subjective Physical Exam Physical Exam: General- elderly M, not in distress, on RA sat 94% Eyes- anicteric Neck- supple, no JVD Lungs- clear breath sounds bilaterally, mild bibasilar crackles, no wheezes Heart- RRR no murmurs Abdomen- normal bowel sounds, nondistended, soft, nontender Extremities- no pretibial edema, no calf tenderness Neuro- awake and alert, able to answer simple questions appropriately, (+) slurred speech, +LUE weakness no other focal deficits noted, gait not assessed Skin- warm & dry Results & Data Results & Data ([facility]) Vital Signs (Past 12 Hours) Vital Signs Temp Pulse Pulse Resp BP BP Pulse Ox 05/09/22 11:05 36.7 C 69 18 160/89 H 94 05/09/22 07:42 81 05/09/22 07:35 05/09/22 07:33 36.7 C 73 18 167/94 H 93 05/09/22 02:48 36.6 C 79 20 178/91 H 92 Pulse Ox 05/09/22 11:05 05/09/22 07:42 05/09/22 07:35 93 05/09/22 07:33 05/09/22 02:48 Medications Administered Current Inpatient Medications Acetaminophen (Acetaminophen 325 Mg Tab) 650 mg PO Q4H PRN PRN Reason: Pain or Fever Stop: 05/31/22 16:02 Last Admin: 05/03/22 19:52 Dose: 650 mg Documented by: Amiodarone HCl (Amiodarone 200 Mg Tab) 200 mg PO BIDM [facility] Stop: 06/06/22 16:59 Last Admin: 05/09/22 08:29 Dose: 200 mg Documented by: Aspirin (Aspirin 81 Mg Ectab) 81 mg PO DAILY [facility] Stop: 06/06/22 11:29 Last Admin: 05/09/22 08:30 Dose: 81 mg Documented by: Benzonatate (Benzonatate 100 Mg Capsule) 100 mg PO TID PRN PRN Reason: Cough Stop: 06/06/22 23:48 Last Admin: 05/09/22 00:34 Dose: 100 mg Documented by: Cyanocobalamin (Cyanocobalamin (B-12) 500 Mcg Tablet) 1,000 mcg PO QAM [facility] Stop: 06/07/22 08:59 Last Admin: 05/09/22 08:30 Dose: 1,000 mcg Documented by: Doxazosin Mesylate (Doxazosin Mesylate 4 Mg Tab) 8 mg PO HS [facility] Stop: 05/31/22 20:59 Last Admin: 05/05/22 20:46 Dose: 8 mg Documented by: Finasteride (Finasteride 5 Mg Tab) 5 mg PO DAILY [facility] Stop: 06/01/22 08:59 Last Admin: 05/09/22 08:29 Dose: 5 mg Documented by: Guaifenesin (Guaifenesin 600 Mg Tabcr) 600 mg PO Q12 [facility] Stop: 06/06/22 20:59 Last Admin: 05/09/22 08:29 Dose: 600 mg Documented by: Heparin Sodium (Porcine) (Heparin Sod 5,000 Unit/0.5 Ml Vial) 5,000 units SQ Q12 [facility] Stop: 05/31/22 20:59 Last Admin: 05/09/22 08:33 Dose: 5,000 units Documented by: Promethazine HCl 12.5 mg/ (Sodium Chloride) 50.5 mls @ 202 mls/hr IV Q6H PRN PRN Reason: Nausea And Vomiting Stop: 06/05/22 06:46 Lactobacillus Acidophilus (Advanced Probiotic 1250 Mg Capsule) 2 cap PO DAILY [facility] Stop: 06/08/22 12:59 Last Admin: 05/09/22 13:21 Dose: 2 cap Documented by: Olopatadine 0.1% -- (Non-Form Pt Own Med) 1 ea OP BID [facility] Stop: 06/06/22 21:59 Last Admin: 05/09/22 08:31 Dose: 1 drops Documented by: Polyethylene Glycol (Polyethylene (Miralax) 17 Gm Pack) 17 gm PO DAILY [facility] Stop: 06/01/22 08:59 Last Admin: 05/09/22 08:33 Dose: 17 gm Documented by: Simvastatin (Simvastatin 20 Mg Tab) 20 mg PO HS [facility] Stop: 05/31/22 20:59 Last Admin: 05/08/22 20:09 Dose: 20 mg Documented by: Thiamine HCl (Thiamine Hcl 100 Mg Tab) 100 mg PO QAM [facility] Stop: 06/07/22 08:59 Last Admin: 05/09/22 08:30 Dose: 100 mg Documented by: (1) COPD (chronic obstructive pulmonary disease) COPD type: unspecified COPD Qualified Code(s): J44.9 - Chronic obstructive pulmonary disease, unspecified
[2022-05-09] MEDS: ADVANCED PROBIOTIC 1250 MG CAPSULE PO SCH (13:21)
--- NOTE | 2022-05-09 15:25 | Cardiology Progress Note ---
Date of Service May 09, 2022 Assessment & Plan (1) Paroxysmal atrial fibrillation with RVR: (2) Weakness: (3) Hypoxia: (4) Cerebrovascular disease, unspecified: Plan: 86-year-old patient admitted with weakness and hypoxia developed new onset atrial fibrillation with spontaneous conversion to normal sinus rhythm. He is not a strong candidate for chronic anticoagulation due to significant fall risk. Continue amiodarone 200 mg twice daily ordered yesterday, 05/07/2022. Continue twice daily dosing for 14 days then reduce to 200 mg once daily. Continue low-dose aspirin. Admission and Anticipated Discharge Date Admission Date: May 01, 2022 Subjective Patient seen examined the bedside. More alert today. Telemetry reveals sinus rhythm. No bradycardia recorded. Tolerating amiodarone and low-dose aspirin. No new concerns/complaints. Review of Systems Review of Systems: All systems reviewed & are unremarkable except as noted in Subjective Physical Exam Constitutional: well developed and well nourished Respiratory: no respiratory distress and no labored breathing Auscultation: + crackles (Scant crackles at the left base.); no rhonchi and no wheezes Cardiovascular: Rate/Rhythm: + irregularly irregular Heart Sounds: normal S1 and normal S2; no murmur Vessels: no JVD, no carotid bruit and + radial pulses abnormal Extremities: no edema Gastrointestinal (Abdomen): Inspection/Auscultation: abdomen not distended and no abdominal edema Neurologic: Speech / Cognition: + abnormal speech Results & Data ([facility]) Vital Signs (Past 12 Hours) Vital Signs Temp Pulse Pulse Resp BP BP Pulse Ox 05/09/22 15:04 36.7 C 72 18 155/79 H 93 05/09/22 11:05 36.7 C 69 18 160/89 H 94 05/09/22 07:42 81 05/09/22 07:35 05/09/22 07:33 36.7 C 73 18 167/94 H 93 Pulse Ox 05/09/22 15:04 05/09/22 11:05 05/09/22 07:42 05/09/22 07:35 93 05/09/22 07:33
[2022-05-09] MEDS: SIMVASTATIN 20 MG TAB PO SCH (20:14)
[2022-05-10] MEDS: AMIODARONE 200 MG TAB PO SCH ×2 (07:45→16:01)
[2022-05-10] MEDS: guaiFENesin 600 MG TABCR PO SCH ×2 (07:45→20:56)
[2022-05-10] MEDS: HEPARIN SOD 5,000 UNIT/0.5 ML VIAL SQ SCH ×2 (07:45→20:59)
[2022-05-10] MEDS: ASPIRIN 81 MG ECTAB PO SCH (07:45)
[2022-05-10] MEDS: THIAMINE HCL 100 MG TAB PO SCH (07:45)
[2022-05-10] MEDS: FINASTERIDE 5 MG TAB PO SCH (07:45)
[2022-05-10] MEDS: ADVANCED PROBIOTIC 1250 MG CAPSULE PO SCH (07:45)
[2022-05-10] MEDS: [UNRECOGNIZED DRUG - REMARK] OP SCH ×2 (07:46→20:58)
[2022-05-10] MEDS: POLYETHYLENE (MIRALAX) 17 GM PACK PO SCH (07:46)
[2022-05-10] MEDS: CYANOCOBALAMIN (B-12) 500 MCG TABLET PO SCH (07:46)
--- NOTE | 2022-05-10 13:38 | Hospitalist Progress Note ---
Date of Service May 10, 2022 Assessment & Plan (1) Weakness: Plan: Patient is an 86 yr male with H/O COPD, HTN, dyslipidemia presented to ER with c/o increased weakness and was unable to complete flight of stairs. no fall today. History falls at home 2 weeks ago Generalized weakness Multiple falls H/O CVA --CT Head:There is no hemorrhage, mass effect, or evidence of acute territorial ischemia by CT criteria. 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 may not be a good candidate for penitentiary anticoagulation due to recurrent falls Increased Chronic Slurred Speech and Left UE weakness -- in the setting of new onset A fib -- Brain MRI: no acute CVA -- Aspirin on allergy list: GI bleeding - currently on ASA - cont. to monitor continue usual Lipitor Neurology consulted, appreciate their input -- Speech Therapist: easy to chew diet -- will need to transition to rehab Fever Unclear source of infection Blood culture No growth to date UA not suggestive of UTI CTA showed no signs of consolidation. Respiratory panel negative repeat CXR: no pneumonia -- resolved, monitor (2) Hypoxia: Plan: Elevated D-dimer Hypoxia Likely atelectasis H/O COPD --CTA:No pulmonary emboli identified although exam moderately compromised by respiratory motion, as described above. Cardiomegaly. Linear and groundglass opacity suggestive of atelectasis. No consolidation to suggest pneumonia. --Venous Doppler:No evidence of deep venous thrombus. Incentive spirometry Given history of COPD, titrate oxygen to keep saturations between 88 to 92% Saturating low 90s on room air (3) COPD (chronic obstructive pulmonary disease): Plan: Not on inhalers Former smoker No signs of exacerbation Monitor (4) Cerebrovascular disease, unspecified: Plan: H/O Suspected CVA in 09/2021 with residual dysphasia management per above Continue simvastatin (5) BPH (benign prostatic hyperplasia): Plan: Continue doxazosin, finasteride Abnormal EKG Echo showed no wall motion abnormality Patient denies any chest pain Chronic thrombocytopenia Monitor DVT Px: Heparin SQ Code Status: DNR/DNI Disposition: will need Acute Rehab vs SNF, plan for [facility] Admission and Anticipated Discharge Date Admission Date: May 01, 2022 Subjective Pt seen in follow up of weakness (dg. on admission), developed afib w/ rvr while inpt, concern for cva (stroke alert while inpt) Pt converted back to sinus rhythm, now on amiodarone per cardiology, ASA added Neurology also consulted and following, appreciate their input Pt is sitting up in chair in NAD He is awake alert able to answer simple questions, speech is somewhat difficult to understand at times Overall, patient is speaking much better and looks better Reports some chronic slurred speech no chest pain, dyspnea, palpitations, dizziness no fever, chills, abd. pain, n/v denies cough, denies dysphagia no other symptoms Review of Systems Review of Systems: All systems reviewed & are unremarkable except as noted in Subjective Physical Exam Physical Exam: General- elderly M, not in distress, on RA Eyes- anicteric Neck- supple, no JVD Lungs- clear breath sounds bilaterally, no wheezes Heart- RRR no murmurs Abdomen- normal bowel sounds, nondistended, soft, nontender Extremities- no pretibial edema, no calf tenderness Neuro- awake and alert, able to answer simple questions appropriately, (+) slurred speech, +LUE weakness no other focal deficits noted, gait not assessed Skin- warm & dry Results & Data Results & Data ([facility]) Vital Signs (Past 12 Hours) Vital Signs Temp Pulse Pulse Resp BP BP Pulse Ox 05/10/22 11:46 36.6 C 83 20 161/89 H 93 05/10/22 07:43 36.8 C 81 16 164/89 H 91 05/10/22 07:00 05/10/22 06:05 84 05/10/22 02:41 36.9 C 78 20 169/87 H 93 Pulse Ox 05/10/22 11:46 05/10/22 07:43 05/10/22 07:00 91 05/10/22 06:05 05/10/22 02:41 Medications Administered Current Inpatient Medications Acetaminophen (Acetaminophen 325 Mg Tab) 650 mg PO Q4H PRN PRN Reason: Pain or Fever Stop: 05/31/22 16:02 Last Admin: 05/03/22 19:52 Dose: 650 mg Documented by: Amiodarone HCl (Amiodarone 200 Mg Tab) 200 mg PO BIDM [facility] Stop: 06/06/22 16:59 Last Admin: 05/10/22 07:45 Dose: 200 mg Documented by: Aspirin (Aspirin 81 Mg Ectab) 81 mg PO DAILY [facility] Stop: 06/06/22 11:29 Last Admin: 05/10/22 07:45 Dose: 81 mg Documented by: Benzonatate (Benzonatate 100 Mg Capsule) 100 mg PO TID PRN PRN Reason: Cough Stop: 06/06/22 23:48 Last Admin: 05/09/22 00:34 Dose: 100 mg Documented by: Cyanocobalamin (Cyanocobalamin (B-12) 500 Mcg Tablet) 1,000 mcg PO QAM [facility] Stop: 06/07/22 08:59 Last Admin: 05/10/22 07:46 Dose: 1,000 mcg Documented by: Doxazosin Mesylate (Doxazosin Mesylate 4 Mg Tab) 8 mg PO HS [facility] Stop: 05/31/22 20:59 Last Admin: 05/05/22 20:46 Dose: 8 mg Documented by: Finasteride (Finasteride 5 Mg Tab) 5 mg PO DAILY [facility] Stop: 06/01/22 08:59 Last Admin: 05/10/22 07:45 Dose: 5 mg Documented by: Guaifenesin (Guaifenesin 600 Mg Tabcr) 600 mg PO Q12 [facility] Stop: 06/06/22 20:59 Last Admin: 05/10/22 07:45 Dose: 600 mg Documented by: Heparin Sodium (Porcine) (Heparin Sod 5,000 Unit/0.5 Ml Vial) 5,000 units SQ Q12 [facility] Stop: 05/31/22 20:59 Last Admin: 05/10/22 07:45 Dose: 5,000 units Documented by: Promethazine HCl 12.5 mg/ (Sodium Chloride) 50.5 mls @ 202 mls/hr IV Q6H PRN PRN Reason: Nausea And Vomiting Stop: 06/05/22 06:46 Lactobacillus Acidophilus (Advanced Probiotic 1250 Mg Capsule) 2 cap PO DAILY [facility] Stop: 06/08/22 12:59 Last Admin: 05/10/22 07:45 Dose: 2 cap Documented by: Olopatadine 0.1% -- (Non-Form Pt Own Med) 1 ea OP BID [facility] Stop: 06/06/22 21:59 Last Admin: 05/10/22 07:46 Dose: 1 drops Documented by: Polyethylene Glycol (Polyethylene (Miralax) 17 Gm Pack) 17 gm PO DAILY [facility] Stop: 06/01/22 08:59 Last Admin: 05/10/22 07:46 Dose: 17 gm Documented by: Simvastatin (Simvastatin 20 Mg Tab) 20 mg PO HS [facility] Stop: 05/31/22 20:59 Last Admin: 05/09/22 20:14 Dose: 20 mg Documented by: Thiamine HCl (Thiamine Hcl 100 Mg Tab) 100 mg PO QAM [facility] Stop: 06/07/22 08:59 Last Admin: 05/10/22 07:45 Dose: 100 mg Documented by: (1) COPD (chronic obstructive pulmonary disease) COPD type: unspecified COPD Qualified Code(s): J44.9 - Chronic obstructive pulmonary disease, unspecified
[2022-05-10] MEDS: SIMVASTATIN 20 MG TAB PO SCH (20:57)
[2022-05-11] MEDS: FINASTERIDE 5 MG TAB PO SCH (08:58)
[2022-05-11] MEDS: ADVANCED PROBIOTIC 1250 MG CAPSULE PO SCH (08:59)
[2022-05-11] MEDS: guaiFENesin 600 MG TABCR PO SCH ×2 (08:59→20:21)
[2022-05-11] MEDS: THIAMINE HCL 100 MG TAB PO SCH (08:59)
[2022-05-11] MEDS: HEPARIN SOD 5,000 UNIT/0.5 ML VIAL SQ SCH ×2 (08:59→20:23)
[2022-05-11] MEDS: ASPIRIN 81 MG ECTAB PO SCH (08:59)
[2022-05-11] MEDS: AMIODARONE 200 MG TAB PO SCH ×2 (08:59→17:48)
[2022-05-11] MEDS: CYANOCOBALAMIN (B-12) 500 MCG TABLET PO SCH (08:59)
[2022-05-11] MEDS: POLYETHYLENE (MIRALAX) 17 GM PACK PO SCH (09:00)
[2022-05-11] MEDS: [UNRECOGNIZED DRUG - REMARK] OP SCH ×2 (09:00→20:23)
--- NOTE | 2022-05-11 15:51 | Hospitalist Progress Note ---
Date of Service May 11, 2022 Assessment & Plan (1) Weakness: Plan: Patient is an 86 yr male with H/O COPD, HTN, dyslipidemia presented to ER with c/o increased weakness and was unable to complete flight of stairs. no fall today. History falls at home 2 weeks ago Generalized weakness Multiple falls H/O CVA --CT Head:There is no hemorrhage, mass effect, or evidence of acute territorial ischemia by CT criteria. 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 may not be a good candidate for intermediate anticoagulation due to recurrent falls Increased Chronic Slurred Speech and Left UE weakness -- in the setting of new onset A fib -- Brain MRI: no acute CVA -- Aspirin on allergy list: GI bleeding - currently on ASA - cont. to monitor continue usual Lipitor Neurology consulted, appreciate their input -- Speech Therapist: easy to chew diet -- will need to transition to rehab/snf Fever Unclear source of infection Blood culture No growth to date UA not suggestive of UTI CTA showed no signs of consolidation. Respiratory panel negative repeat CXR: no pneumonia -- resolved, monitor (2) Hypoxia: Plan: Elevated D-dimer Hypoxia Likely atelectasis H/O COPD --CTA:No pulmonary emboli identified although exam moderately compromised by respiratory motion, as described above. Cardiomegaly. Linear and groundglass opacity suggestive of atelectasis. No consolidation to suggest pneumonia. --Venous Doppler:No evidence of deep venous thrombus. Incentive spirometry Given history of COPD, titrate oxygen to keep saturations between 88 to 92% Saturating low 90s on room air (3) COPD (chronic obstructive pulmonary disease): Plan: Not on inhalers Former smoker No signs of exacerbation Monitor (4) Cerebrovascular disease, unspecified: Plan: H/O Suspected CVA in 09/2021 with residual dysphasia management per above Continue simvastatin (5) BPH (benign prostatic hyperplasia): Plan: Continue doxazosin, finasteride Abnormal EKG Echo showed no wall motion abnormality Patient denies any chest pain Chronic thrombocytopenia Monitor DVT Px: Heparin SQ Code Status: DNR/DNI Disposition: will need Acute Rehab vs SNF Admission and Anticipated Discharge Date Admission Date: May 01, 2022 Subjective Pt seen in follow up of weakness (dg. on admission), developed afib w/ rvr while inpt, concern for cva (stroke alert while inpt) Pt converted back to sinus rhythm, now on amiodarone per cardiology, ASA added Neurology also consulted and following, appreciate their input Pt is sitting up in chair in NAD He is awake alert able to answer simple questions, speech is somewhat difficult to understand at times Overall, patient is speaking much better and looks better Reports some chronic slurred speech no chest pain, dyspnea, palpitations, dizziness no fever, chills, abd. pain, n/v denies cough, denies dysphagia no other symptoms Review of Systems Review of Systems: All systems reviewed & are unremarkable except as noted in Subjective Physical Exam Physical Exam: General- elderly M, not in distress, on RA Eyes- anicteric Neck- supple, no JVD Lungs- clear breath sounds bilaterally, no wheezes Heart- RRR no murmurs Abdomen- normal bowel sounds, nondistended, soft, nontender Extremities- no pretibial edema, no calf tenderness Neuro- awake and alert, able to answer simple questions appropriately, (+) slurred speech, +LUE weakness, able to move LE b/l, however noted weakness no other focal deficits noted, gait not assessed Skin- warm & dry Results & Data Results & Data ([facility]) Vital Signs (Past 12 Hours) Vital Signs Temp Pulse Pulse Resp BP BP Pulse Ox 05/11/22 15:11 36.6 C 68 18 138/78 93 05/11/22 11:41 73 05/11/22 11:30 36.3 C L 80 18 113/68 91 05/11/22 11:03 93 05/11/22 07:12 36.7 C 67 18 147/88 H 92 05/11/22 07:00 Pulse Ox 05/11/22 15:11 05/11/22 11:41 05/11/22 11:30 05/11/22 11:03 05/11/22 07:12 05/11/22 07:00 92 Medications Administered Current Inpatient Medications Acetaminophen (Acetaminophen 325 Mg Tab) 650 mg PO Q4H PRN PRN Reason: Pain or Fever Stop: 05/31/22 16:02 Last Admin: 05/03/22 19:52 Dose: 650 mg Documented by: Amiodarone HCl (Amiodarone 200 Mg Tab) 200 mg PO BIDM [facility] Stop: 06/06/22 16:59 Last Admin: 05/11/22 08:59 Dose: 200 mg Documented by: Aspirin (Aspirin 81 Mg Ectab) 81 mg PO DAILY [facility] Stop: 06/06/22 11:29 Last Admin: 05/11/22 08:59 Dose: 81 mg Documented by: Benzonatate (Benzonatate 100 Mg Capsule) 100 mg PO TID PRN PRN Reason: Cough Stop: 06/06/22 23:48 Last Admin: 05/09/22 00:34 Dose: 100 mg Documented by: Cyanocobalamin (Cyanocobalamin (B-12) 500 Mcg Tablet) 1,000 mcg PO QAM [facility] Stop: 06/07/22 08:59 Last Admin: 05/11/22 08:59 Dose: 1,000 mcg Documented by: Doxazosin Mesylate (Doxazosin Mesylate 4 Mg Tab) 8 mg PO HS [facility] Stop: 05/31/22 20:59 Last Admin: 05/05/22 20:46 Dose: 8 mg Documented by: Finasteride (Finasteride 5 Mg Tab) 5 mg PO DAILY [facility] Stop: 06/01/22 08:59 Last Admin: 05/11/22 08:58 Dose: 5 mg Documented by: Guaifenesin (Guaifenesin 600 Mg Tabcr) 600 mg PO Q12 [facility] Stop: 06/06/22 20:59 Last Admin: 05/11/22 08:59 Dose: 600 mg Documented by: Heparin Sodium (Porcine) (Heparin Sod 5,000 Unit/0.5 Ml Vial) 5,000 units SQ Q12 [facility] Stop: 05/31/22 20:59 Last Admin: 05/11/22 08:59 Dose: 5,000 units Documented by: Promethazine HCl 12.5 mg/ (Sodium Chloride) 50.5 mls @ 202 mls/hr IV Q6H PRN PRN Reason: Nausea And Vomiting Stop: 06/05/22 06:46 Lactobacillus Acidophilus (Advanced Probiotic 1250 Mg Capsule) 2 cap PO DAILY [facility] Stop: 06/08/22 12:59 Last Admin: 05/11/22 08:59 Dose: 2 cap Documented by: Olopatadine 0.1% -- (Non-Form Pt Own Med) 1 ea OP BID [facility] Stop: 06/06/22 21:59 Last Admin: 05/11/22 09:00 Dose: 1 drops Documented by: Polyethylene Glycol (Polyethylene (Miralax) 17 Gm Pack) 17 gm PO DAILY [facility] Stop: 06/01/22 08:59 Last Admin: 05/11/22 09:00 Dose: Not Given Documented by: Simvastatin (Simvastatin 20 Mg Tab) 20 mg PO HS [facility] Stop: 05/31/22 20:59 Last Admin: 05/10/22 20:57 Dose: 20 mg Documented by: Sodium Chloride (Sodium Chloride 0.65% Na Soln 45 Ml ([place])) 2 sprays NA TID [facility] Stop: 06/10/22 20:59 Thiamine HCl (Thiamine Hcl 100 Mg Tab) 100 mg PO QAM [facility] Stop: 06/07/22 08:59 Last Admin: 05/11/22 08:59 Dose: 100 mg Documented by: (1) COPD (chronic obstructive pulmonary disease) COPD type: unspecified COPD Qualified Code(s): J44.9 - Chronic obstructive pulmonary disease, unspecified
[2022-05-11] MEDS: SODIUM CHLORIDE 0.65% NA SOLN 45 ML (OCEAN) SCH (20:23)
[2022-05-11] MEDS: SIMVASTATIN 20 MG TAB PO SCH (20:24)
[2022-05-12] MEDS: AMIODARONE 200 MG TAB PO SCH ×2 (09:13→16:11)
[2022-05-12] MEDS: ASPIRIN 81 MG ECTAB PO SCH (09:14)
[2022-05-12] MEDS: CYANOCOBALAMIN (B-12) 500 MCG TABLET PO SCH (09:14)
[2022-05-12] MEDS: FINASTERIDE 5 MG TAB PO SCH (09:14)
[2022-05-12] MEDS: guaiFENesin 600 MG TABCR PO SCH ×2 (09:14→20:41)
[2022-05-12] MEDS: ADVANCED PROBIOTIC 1250 MG CAPSULE PO SCH (09:15)
[2022-05-12] MEDS: [UNRECOGNIZED DRUG - REMARK] OP SCH ×2 (09:15→20:41)
[2022-05-12] MEDS: SODIUM CHLORIDE 0.65% NA SOLN 45 ML (OCEAN) SCH ×4 (09:15→20:41)
[2022-05-12] MEDS: THIAMINE HCL 100 MG TAB PO SCH (09:15)
[2022-05-12] MEDS: HEPARIN SOD 5,000 UNIT/0.5 ML VIAL SQ SCH ×2 (09:16→20:41)
[2022-05-12] MEDS: POLYETHYLENE (MIRALAX) 17 GM PACK PO SCH (09:21)
--- NOTE | 2022-05-12 14:39 | Hospitalist Progress Note ---
Date of Service May 12, 2022 Assessment & Plan (1) Weakness: Plan: Patient is an 86 yr male with H/O COPD, HTN, dyslipidemia presented to ER with c/o increased weakness and was unable to complete flight of stairs. no fall today. History falls at home 2 weeks ago Generalized weakness Multiple falls H/O CVA --CT Head:There is no hemorrhage, mass effect, or evidence of acute territorial ischemia by CT criteria. 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 may not be a good candidate for assisted anticoagulation due to recurrent falls Increased Chronic Slurred Speech and Left UE weakness -- in the setting of new onset A fib -- Brain MRI: no acute CVA -- Aspirin on allergy list: GI bleeding - currently on ASA - cont. to monitor continue usual Lipitor Neurology consulted, appreciate their input -- Speech Therapist: easy to chew diet -- will need to transition to rehab/snf Fever Unclear source of infection Blood culture No growth to date UA not suggestive of UTI CTA showed no signs of consolidation. Respiratory panel negative repeat CXR: no pneumonia - procal negative -- resolved, monitor (2) Hypoxia: Plan: Elevated D-dimer Hypoxia Likely atelectasis H/O COPD --CTA:No pulmonary emboli identified although exam moderately compromised by respiratory motion, as described above. Cardiomegaly. Linear and groundglass opacity suggestive of atelectasis. No consolidation to suggest pneumonia. --Venous Doppler:No evidence of deep venous thrombus. Incentive spirometry Given history of COPD, titrate oxygen to keep saturations between 88 to 92% Saturating low 90s on room air (3) COPD (chronic obstructive pulmonary disease): Plan: Not on inhalers Former smoker No signs of exacerbation Monitor (4) Cerebrovascular disease, unspecified: Plan: H/O Suspected CVA in 09/2021 with residual dysphasia management per above Continue simvastatin (5) BPH (benign prostatic hyperplasia): Plan: Continue doxazosin, finasteride Abnormal EKG Echo showed no wall motion abnormality Patient denies any chest pain Chronic thrombocytopenia Monitor DVT Px: Heparin SQ Code Status: DNR/DNI Disposition: will need Acute Rehab vs SNF Admission and Anticipated Discharge Date Admission Date: May 01, 2022 Subjective Pt seen in follow up of weakness (dg. on admission), developed afib w/ rvr while inpt, concern for cva (stroke alert while inpt) Pt converted back to sinus rhythm, now on amiodarone per cardiology, ASA added Neurology also consulted and following, appreciate their input Pt is sitting up in chair in NAD He is awake alert able to answer simple questions, speech is somewhat difficult to understand at times Overall, patient is speaking much better and looks better Reports some chronic slurred speech no chest pain, dyspnea, palpitations, dizziness no fever, chills, abd. pain, n/v denies cough, denies dysphagia no other symptoms Awaiting placement -SNF Review of Systems Review of Systems: All systems reviewed & are unremarkable except as noted in Subjective Physical Exam Physical Exam: General- elderly M, not in distress, on RA Eyes- anicteric Neck- supple, no JVD Lungs- clear breath sounds bilaterally, no wheezes Heart- RRR no murmurs Abdomen- normal bowel sounds, nondistended, soft, nontender Extremities- no pretibial edema, no calf tenderness Neuro- awake and alert, able to answer simple questions appropriately, (+) slurred speech, +LUE weakness, able to move LE b/l, however noted weakness no other focal deficits noted, gait not assessed Skin- warm & dry Results & Data Results & Data ([facility]) Vital Signs (Past 12 Hours) Vital Signs Temp Pulse Resp BP Pulse Ox 05/12/22 11:41 36.9 C 84 18 154/72 H 92 05/12/22 07:27 36.6 C 77 16 159/86 H 91 05/12/22 02:44 36.6 C 74 20 154/89 H 92 Medications Administered Current Inpatient Medications Acetaminophen (Acetaminophen 325 Mg Tab) 650 mg PO Q4H PRN PRN Reason: Pain or Fever Stop: 05/31/22 16:02 Last Admin: 05/03/22 19:52 Dose: 650 mg Documented by: Amiodarone HCl (Amiodarone 200 Mg Tab) 200 mg PO BIDM [facility] Stop: 06/06/22 16:59 Last Admin: 05/12/22 09:13 Dose: 200 mg Documented by: Aspirin (Aspirin 81 Mg Ectab) 81 mg PO DAILY [facility] Stop: 06/06/22 11:29 Last Admin: 05/12/22 09:14 Dose: 81 mg Documented by: Benzonatate (Benzonatate 100 Mg Capsule) 100 mg PO TID PRN PRN Reason: Cough Stop: 06/06/22 23:48 Last Admin: 05/09/22 00:34 Dose: 100 mg Documented by: Cyanocobalamin (Cyanocobalamin (B-12) 500 Mcg Tablet) 1,000 mcg PO QAM [facility] Stop: 06/07/22 08:59 Last Admin: 05/12/22 09:14 Dose: 1,000 mcg Documented by: Doxazosin Mesylate (Doxazosin Mesylate 4 Mg Tab) 8 mg PO HS [facility] Stop: 05/31/22 20:59 Last Admin: 05/05/22 20:46 Dose: 8 mg Documented by: Finasteride (Finasteride 5 Mg Tab) 5 mg PO DAILY [facility] Stop: 06/01/22 08:59 Last Admin: 05/12/22 09:14 Dose: 5 mg Documented by: Guaifenesin (Guaifenesin 600 Mg Tabcr) 600 mg PO Q12 [facility] Stop: 06/06/22 20:59 Last Admin: 05/12/22 09:14 Dose: 600 mg Documented by: Heparin Sodium (Porcine) (Heparin Sod 5,000 Unit/0.5 Ml Vial) 5,000 units SQ Q12 [facility] Stop: 05/31/22 20:59 Last Admin: 05/12/22 09:16 Dose: 5,000 units Documented by: Promethazine HCl 12.5 mg/ (Sodium Chloride) 50.5 mls @ 202 mls/hr IV Q6H PRN PRN Reason: Nausea And Vomiting Stop: 06/05/22 06:46 Lactobacillus Acidophilus (Advanced Probiotic 1250 Mg Capsule) 2 cap PO DAILY [facility] Stop: 06/08/22 12:59 Last Admin: 05/12/22 09:15 Dose: 2 cap Documented by: Olopatadine 0.1% -- (Non-Form Pt Own Med) 1 ea OP BID [facility] Stop: 06/06/22 21:59 Last Admin: 05/12/22 09:15 Dose: 1 drops Documented by: Polyethylene Glycol (Polyethylene (Miralax) 17 Gm Pack) 17 gm PO DAILY [facility] Stop: 06/01/22 08:59 Last Admin: 05/12/22 09:21 Dose: 17 gm Documented by: Simvastatin (Simvastatin 20 Mg Tab) 20 mg PO HS [facility] Stop: 05/31/22 20:59 Last Admin: 05/11/22 20:24 Dose: 20 mg Documented by: Sodium Chloride (Sodium Chloride 0.65% Na Soln 45 Ml ([place])) 2 sprays NA TID [facility] Stop: 06/10/22 20:59 Last Admin: 05/12/22 09:15 Dose: 2 sprays Documented by: Thiamine HCl (Thiamine Hcl 100 Mg Tab) 100 mg PO QAM [facility] Stop: 06/07/22 08:59 Last Admin: 05/12/22 09:15 Dose: 100 mg Documented by: (1) COPD (chronic obstructive pulmonary disease) COPD type: unspecified COPD Qualified Code(s): J44.9 - Chronic obstructive pulmonary disease, unspecified
[2022-05-12] MEDS: SIMVASTATIN 20 MG TAB PO SCH (20:41)
[2022-05-13] MEDS: AMIODARONE 200 MG TAB PO SCH ×2 (09:01→18:24)
[2022-05-13] MEDS: ASPIRIN 81 MG ECTAB PO SCH (09:59)
[2022-05-13] MEDS: POLYETHYLENE (MIRALAX) 17 GM PACK PO SCH (09:59)
[2022-05-13] MEDS: FINASTERIDE 5 MG TAB PO SCH (10:00)
[2022-05-13] MEDS: SODIUM CHLORIDE 0.65% NA SOLN 45 ML (OCEAN) SCH ×3 (10:00→20:55)
[2022-05-13] MEDS: ADVANCED PROBIOTIC 1250 MG CAPSULE PO SCH (10:00)
[2022-05-13] MEDS: [UNRECOGNIZED DRUG - REMARK] OP SCH ×2 (10:00→20:54)
[2022-05-13] MEDS: CYANOCOBALAMIN (B-12) 500 MCG TABLET PO SCH (10:00)
[2022-05-13] MEDS: guaiFENesin 600 MG TABCR PO SCH ×2 (10:00→20:53)
[2022-05-13] MEDS: HEPARIN SOD 5,000 UNIT/0.5 ML VIAL SQ SCH ×2 (10:00→20:53)
[2022-05-13] MEDS: THIAMINE HCL 100 MG TAB PO SCH (10:00)
--- NOTE | 2022-05-13 13:17 | Hospitalist Progress Note ---
Date of Service May 13, 2022 Assessment & Plan (1) Weakness: Plan: Patient is an 86 yr male with H/O COPD, HTN, dyslipidemia presented to ER with c/o increased weakness and was unable to complete flight of stairs with falls at home 2 weeks ago Generalized weakness Multiple falls H/O CVA --CT Head:There is no hemorrhage, mass effect, or evidence of acute territorial ischemia by CT criteria. TSH slightly low, normal Free T4 Vitamin B12 197, started supplementation folate wnl RPR negative PT OT Fall precautions Needs Rehab placement --awaiting on a bed. Seen by neurology, plan for outpatient EMG studies Increased Chronic Slurred Speech and Left UE weakness -- in the setting of new onset A fib -- Brain MRI: no acute CVA -- Aspirin on allergy list: GI bleeding - currently on ASA - cont. 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 may not be a good candidate for shelter anticoagulation due to recurrent falls (3) Fever: Plan: Fever in early May, early in the admission. Unclear source of infection Blood culture No growth to date UA not suggestive of UTI CTA showed no signs of consolidation. Respiratory panel negative repeat CXR: no pneumonia - procal negative -- resolved, monitor (4) Hypoxia: Plan: Elevated D-dimer Hypoxia Likely atelectasis H/O COPD --CTA:No pulmonary emboli identified although exam moderately compromised by respiratory motion, as described above. Cardiomegaly. Linear and groundglass opacity suggestive of atelectasis. No consolidation to suggest pneumonia. --Venous Doppler:No evidence of deep venous thrombus. Incentive spirometry Given history of COPD, titrate oxygen to keep saturations between 88 to 92% Saturating low 90s on room air 05/13: Off supplemental oxygen today, no cough or other respiratory symptoms at this time. (5) B12 deficiency: Plan: supplementation started this admission. (6) COPD (chronic obstructive pulmonary disease): Plan: chronic, stable, no signs of exacerbation. (7) Cerebrovascular disease, unspecified: Plan: H/O Suspected CVA in 09/2021 with residual dysphasia management per above Continue simvastatin (8) BPH (benign prostatic hyperplasia): Plan: chronic, stable, external catheter in place. Continue doxazosin, finasteride (9) DVT prophylaxis: Plan: Heparin DNR Dispo-Acute Rehab vs SNF awaiting bed availability Maritza Ferraro DO [facility] Hospitalist Admission and Anticipated Discharge Date Admission Date: May 01, 2022 Subjective Pt seen in follow up of weakness (dg. on admission), developed afib w/ rvr while inpt, concern for cva (stroke alert while inpt) Pt converted back to sinus rhythm, now on amiodarone per cardiology, ASA added Neurology also consulted and following, appreciate their input Pt is sitting up in chair in NAD He is awake alert able to answer simple questions, speech is somewhat difficult to understand at times Overall, patient is speaking much better and looks better Reports some chronic slurred speech no chest pain, dyspnea, palpitations, dizziness no fever, chills, abd. pain, n/v denies cough, denies dysphagia no other symptoms Awaiting placement -SNF Review of Systems Review of Systems: All systems reviewed negative except as indicated above. Physical Exam Physical Exam: CONSTITUTIONAL: WNWD, vitals as above, generally well- appearing, NAD EYES: normal conjunctivae, no scleral icterus, ENT: external ear and nose normal, MMM NECK: trachea midline, RESPIRATORY: clear to auscultation bilaterally, no crackles, rales or wheezes, normal respiratory effort CARDIOVASCULAR: regular rate and rhythm, S1 and 2 heard without murmurs, gallops or rubs, no JVD, no peripheral edema CHEST: inspection of chest was normal GASTROINTESTINAL: soft, nontender, ND no guarding MUSCULOSKELETAL: strength 5/5 throughout, head is normocephalic and atraumatic SKIN: warm and dry, NEUROLOGIC: CN 2-12 grossly intact, no sensory deficit, normal cognition, slurred speech at baseline and present today, he is able to articulate clearly today, no tremor PSYCHIATRIC: alert cooperative and oriented to person, place and time. Results & Data Results & Data ([facility]) Vital Signs (Past 12 Hours) Vital Signs Temp Pulse Resp BP BP Pulse Ox O2 Del Method 05/13/22 12:14 36.8 C 78 18 120/69 90 Room Air 05/13/22 07:35 Room Air 05/13/22 07:00 05/13/22 07:25 36.7 C 68 18 132/75 90 Room Air 05/13/22 03:00 36.6 C 77 20 111/74 90 Room Air O2 Del Method 05/13/22 12:14 05/13/22 07:35 05/13/22 07:00 Room Air 05/13/22 07:25 05/13/22 03:00 Medications Administered Current Inpatient Medications Acetaminophen (Acetaminophen 325 Mg Tab) 650 mg PO Q4H PRN PRN Reason: Pain or Fever Stop: 05/31/22 16:02 Last Admin: 05/03/22 19:52 Dose: 650 mg Amiodarone HCl (Amiodarone 200 Mg Tab) 200 mg PO BIDM [facility] Stop: 06/06/22 16:59 Last Admin: 05/13/22 09:01 Dose: 200 mg Aspirin (Aspirin 81 Mg Ectab) 81 mg PO DAILY [facility] Stop: 06/06/22 11:29 Last Admin: 05/13/22 09:59 Dose: 81 mg Benzonatate (Benzonatate 100 Mg Capsule) 100 mg PO TID PRN PRN Reason: Cough Stop: 06/06/22 23:48 Last Admin: 05/09/22 00:34 Dose: 100 mg Cyanocobalamin (Cyanocobalamin (B-12) 500 Mcg Tablet) 1,000 mcg PO QAM [facility] Stop: 06/07/22 08:59 Last Admin: 05/13/22 10:00 Dose: 1,000 mcg Doxazosin Mesylate (Doxazosin Mesylate 4 Mg Tab) 8 mg PO HS [facility] Stop: 05/31/22 20:59 Last Admin: 05/05/22 20:46 Dose: 8 mg Finasteride (Finasteride 5 Mg Tab) 5 mg PO DAILY [facility] Stop: 06/01/22 08:59 Last Admin: 05/13/22 10:00 Dose: 5 mg Guaifenesin (Guaifenesin 600 Mg Tabcr) 600 mg PO Q12 [facility] Stop: 06/06/22 20:59 Last Admin: 05/13/22 10:00 Dose: 600 mg Heparin Sodium (Porcine) (Heparin Sod 5,000 Unit/0.5 Ml Vial) 5,000 units SQ Q12 [facility] Stop: 05/31/22 20:59 Last Admin: 05/13/22 10:00 Dose: 5,000 units Promethazine HCl 12.5 mg/ (Sodium Chloride) 50.5 mls @ 202 mls/hr IV Q6H PRN PRN Reason: Nausea And Vomiting Stop: 06/05/22 06:46 Lactobacillus Acidophilus (Advanced Probiotic 1250 Mg Capsule) 2 cap PO DAILY [facility] Stop: 06/08/22 12:59 Last Admin: 05/13/22 10:00 Dose: 2 cap Olopatadine 0.1% -- (Non-Form Pt Own Med) 1 ea OP BID [facility] Stop: 06/06/22 21:59 Last Admin: 05/13/22 10:00 Dose: 2 drops Polyethylene Glycol (Polyethylene (Miralax) 17 Gm Pack) 17 gm PO DAILY [facility] Stop: 06/01/22 08:59 Last Admin: 05/13/22 09:59 Dose: 17 gm Simvastatin (Simvastatin 20 Mg Tab) 20 mg PO HS [facility] Stop: 05/31/22 20:59 Last Admin: 05/12/22 20:41 Dose: 20 mg Sodium Chloride (Sodium Chloride 0.65% Na Soln 45 Ml ([place])) 2 sprays NA TID [facility] Stop: 06/10/22 20:59 Last Admin: 05/13/22 10:00 Dose: 2 sprays Thiamine HCl (Thiamine Hcl 100 Mg Tab) 100 mg PO QAM [facility] Stop: 06/07/22 08:59 Last Admin: 05/13/22 10:00 Dose: 100 mg (1) COPD (chronic obstructive pulmonary disease) COPD type: unspecified COPD Qualified Code(s): J44.9 - Chronic obstructive pulmonary disease, unspecified
[2022-05-13] MEDS: SIMVASTATIN 20 MG TAB PO SCH (20:54)
[2022-05-14 06:57] LABS: Calcium 8.7 mg/dl (8.5-10.1); Est GFR (African American) 78.1 ml/min; Est GFR (Non-African American) 67.4 ml/min; Potassium 4.2 mmol/L (3.5-5.1)
[2022-05-14 07:34] LABS: Hematocrit (blood only) 41.9 % (40.1-51.0); Hemoglobin 14.1 g/dl (14.0-18.0); Mean Corpuscular Hgb Conc 33.7 g/dL (32.0-36.0); Mean Corpuscular Volume 95.2 fL (80.0-100.0); Mean Platelet Volume 12.4 fL (9.4-12.4); Platelet Count 167 K/uL (130-400); RDW Coefficient of Variation 13.1 % (11.5-14.5); RDW Standard Deviation 45.6 fL (36.4-46.3); White Blood Count 10.03 K/ul (4.8-10.8)
[2022-05-14] MEDS: AMIODARONE 200 MG TAB PO SCH ×2 (08:48→18:34)
[2022-05-14] MEDS: THIAMINE HCL 100 MG TAB PO SCH (08:49)
[2022-05-14] MEDS: ASPIRIN 81 MG ECTAB PO SCH (08:49)
[2022-05-14] MEDS: SODIUM CHLORIDE 0.65% NA SOLN 45 ML (OCEAN) SCH ×3 (08:50→21:12)
[2022-05-14] MEDS: FINASTERIDE 5 MG TAB PO SCH (08:51)
[2022-05-14] MEDS: guaiFENesin 600 MG TABCR PO SCH ×2 (08:51→21:11)
[2022-05-14] MEDS: ADVANCED PROBIOTIC 1250 MG CAPSULE PO SCH (08:51)
[2022-05-14] MEDS: CYANOCOBALAMIN (B-12) 500 MCG TABLET PO SCH (08:52)
[2022-05-14] MEDS: [UNRECOGNIZED DRUG - REMARK] OP SCH ×2 (08:52→21:10)
[2022-05-14] MEDS: HEPARIN SOD 5,000 UNIT/0.5 ML VIAL SQ SCH ×2 (09:07→21:12)
--- NOTE | 2022-05-14 15:37 | Hospitalist Progress Note ---
Date of Service May 14, 2022 Assessment & Plan (1) Weakness: Plan: Patient is an 86 yr male with H/O COPD, HTN, dyslipidemia presented to ER with c/o increased weakness and was unable to complete flight of stairs with falls at home 2 weeks ago Generalized weakness Multiple falls H/O CVA --CT Head:There is no hemorrhage, mass effect, or evidence of acute territorial ischemia by CT criteria. TSH slightly low, normal Free T4 Vitamin B12 197, started supplementation folate wnl RPR negative PT OT Fall precautions Needs Rehab placement --awaiting on a bed. Seen by neurology, plan for outpatient EMG studies Increased Chronic Slurred Speech and Left UE weakness -- in the setting of new onset A fib -- Brain MRI: no acute CVA -- Aspirin on allergy list: GI bleeding - currently on ASA - cont. to monitor continue usual Lipitor Neurology consulted, -- Speech Therapist: easy to chew diet -- will need to transition to rehab/snf --speech is improved and is stable. 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 may not be a good candidate for continuous churn buttermaker anticoagulation due to recurrent falls (3) Fever: Plan: Fever in early May, early in the admission. Unclear source of infection Blood culture No growth to date UA not suggestive of UTI CTA showed no signs of consolidation. Respiratory panel negative repeat CXR: no pneumonia - procal negative -- resolved, monitor (4) Hypoxia: Plan: Elevated D-dimer Hypoxia Likely atelectasis H/O COPD --CTA:No pulmonary emboli identified although exam moderately compromised by respiratory motion, as described above. Cardiomegaly. Linear and groundglass opacity suggestive of atelectasis. No consolidation to suggest pneumonia. --Venous Doppler:No evidence of deep venous thrombus. Incentive spirometry Given history of COPD, titrate oxygen to keep saturations between 88 to 92% Saturating low 90s on room air 05/13: Off supplemental oxygen today, no cough or other respiratory symptoms at this time. (5) B12 deficiency: Plan: supplementation started this admission. (6) COPD (chronic obstructive pulmonary disease): Plan: chronic, stable, no signs of exacerbation. (7) Cerebrovascular disease, unspecified: Plan: H/O Suspected CVA in 09/2021 with residual dysphasia management per above Continue simvastatin (8) BPH (benign prostatic hyperplasia): Plan: chronic, stable, external catheter in place. Continue doxazosin, finasteride (9) DVT prophylaxis: Plan: Heparin DNR Dispo-Acute Rehab vs SNF awaiting bed availability DO [place] Hospitalist Admission and Anticipated Discharge Date Admission Date: May 01, 2022 Subjective Admitted for weakness, later developed new onset atrial fibrillation, currently stable and awaiting placement. doing well with PO intake denies any chest pain, SOB or other symptoms Patient reports getting out of bed to chair today and nurse corroborates this. Review of Systems Review of Systems: All systems reviewed negative except as indicated above. Physical Exam Physical Exam: CONSTITUTIONAL: WNWD, vitals as above, generally well- appearing, NAD EYES: normal conjunctivae, no scleral icterus, ENT: external ear and nose normal, MMM NECK: trachea midline, RESPIRATORY: clear to auscultation bilaterally, no crackles, rales or wheezes, normal respiratory effort CARDIOVASCULAR: regular rate and rhythm, S1 and 2 heard without murmurs, gallops or rubs, no JVD, no peripheral edema CHEST: inspection of chest was normal GASTROINTESTINAL: soft, nontender, ND no guarding MUSCULOSKELETAL: Generalized weakness, nonfocal, head is normocephalic and atraumatic SKIN: warm and dry, NEUROLOGIC: CN 2-12 grossly intact, no sensory deficit, normal cognition, slurred speech at baseline and present today, he is able to articulate clearly today, no tremor PSYCHIATRIC: alert cooperative and oriented to person, place and time. Results & Data Results & Data ([facility]) Vital Signs (Past 12 Hours) Vital Signs Temp Pulse Resp BP BP Pulse Ox O2 Del Method 05/14/22 14:58 37 C 72 18 109/67 90 Room Air 05/14/22 08:29 Room Air 05/14/22 07:16 37.1 C 77 16 121/73 90 Room Air Laboratory Results Short CBC 05/14/22 Range/Units 06:16 WBC 10.03 (4.8-10.8) K/ul Hgb 14.1 (14.0-18.0) g/dl Hct 41.9 (40.1-51.0) % Plt Count 167 (130-400) K/uL BMP 05/14/22 06:16 Sodium 133 L Potassium 4.2 Chloride 102 Carbon Dioxide 23 BUN 25 H Creatinine 1.00 Glucose 89 Calcium 8.7 Medications Administered Current Inpatient Medications Acetaminophen (Acetaminophen 325 Mg Tab) 650 mg PO Q4H PRN PRN Reason: Pain or Fever Stop: 05/31/22 16:02 Last Admin: 05/03/22 19:52 Dose: 650 mg Amiodarone HCl (Amiodarone 200 Mg Tab) 200 mg PO BIDM [facility] Stop: 06/06/22 16:59 Last Admin: 05/14/22 08:48 Dose: 200 mg Aspirin (Aspirin 81 Mg Ectab) 81 mg PO DAILY [facility] Stop: 06/06/22 11:29 Last Admin: 05/14/22 08:49 Dose: 81 mg Benzonatate (Benzonatate 100 Mg Capsule) 100 mg PO TID PRN PRN Reason: Cough Stop: 06/06/22 23:48 Last Admin: 05/09/22 00:34 Dose: 100 mg Cyanocobalamin (Cyanocobalamin (B-12) 500 Mcg Tablet) 1,000 mcg PO QAM [facility] Stop: 06/07/22 08:59 Last Admin: 05/14/22 08:52 Dose: 1,000 mcg Doxazosin Mesylate (Doxazosin Mesylate 4 Mg Tab) 8 mg PO HS [facility] Stop: 05/31/22 20:59 Last Admin: 05/05/22 20:46 Dose: 8 mg Finasteride (Finasteride 5 Mg Tab) 5 mg PO DAILY [facility] Stop: 06/01/22 08:59 Last Admin: 05/14/22 08:51 Dose: 5 mg Guaifenesin (Guaifenesin 600 Mg Tabcr) 600 mg PO Q12 [facility] Stop: 06/06/22 20:59 Last Admin: 05/14/22 08:51 Dose: 600 mg Heparin Sodium (Porcine) (Heparin Sod 5,000 Unit/0.5 Ml Vial) 5,000 units SQ Q12 [facility] Stop: 05/31/22 20:59 Last Admin: 05/14/22 09:07 Dose: 5,000 units Promethazine HCl 12.5 mg/ (Sodium Chloride) 50.5 mls @ 202 mls/hr IV Q6H PRN PRN Reason: Nausea And Vomiting Stop: 06/05/22 06:46 Lactobacillus Acidophilus (Advanced Probiotic 1250 Mg Capsule) 2 cap PO DAILY [facility] Stop: 06/08/22 12:59 Last Admin: 05/14/22 08:51 Dose: 2 cap Olopatadine 0.1% -- (Non-Form Pt Own Med) 1 ea OP BID [facility] Stop: 06/06/22 21:59 Last Admin: 05/14/22 08:52 Dose: 1 drops Polyethylene Glycol (Polyethylene (Miralax) 17 Gm Pack) 17 gm PO DAILY [facility] Stop: 06/01/22 08:59 Last Admin: 05/13/22 09:59 Dose: 17 gm Simvastatin (Simvastatin 20 Mg Tab) 20 mg PO HS [facility] Stop: 05/31/22 20:59 Last Admin: 05/13/22 20:54 Dose: 20 mg Sodium Chloride (Sodium Chloride 0.65% Na Soln 45 Ml ([place])) 2 sprays NA TID [facility] Stop: 06/10/22 20:59 Last Admin: 05/14/22 08:50 Dose: 2 sprays Thiamine HCl (Thiamine Hcl 100 Mg Tab) 100 mg PO QAM [facility] Stop: 06/07/22 08:59 Last Admin: 05/14/22 08:49 Dose: 100 mg (1) COPD (chronic obstructive pulmonary disease) COPD type: unspecified COPD Qualified Code(s): J44.9 - Chronic obstructive pulmonary disease, unspecified
[2022-05-14] MEDS: POLYETHYLENE (MIRALAX) 17 GM PACK PO SCH (18:35)
[2022-05-14] MEDS: SIMVASTATIN 20 MG TAB PO SCH (21:11)
--- NOTE | 2022-05-15 08:03 | XRay Report ---
XR chest 1V portable HISTORY: Hypoxia. COMPARISON: Chest 05/05/2022. FINDINGS: No pneumothorax. Bibasilar linear densities have slightly improved. This favors subsegmenta l atelectasis are scarring. Otherwise, no new focal lung consolidations to suggest pneumonia. No evid ence for pulmonary edema. The heart remains mildly enlarged. There are calcifications within the aort ic knob. Right tracheal deviation persists and is secondary to the patient's left thyroid goiter. The re are old, healed left-sided rib fractures. There are low lung volumes. IMPRESSION: 1. Interval improvement in the bibasilar linear densities suggesting resolving atelectasis. 2. Stable mild cardiomegaly and low lung volumes. ACT 112: Negative or not required by law. Electronically signed by: Kyle Pathak M.D. 05/15/2022 8:01 AM
[2022-05-15] MEDS: [UNRECOGNIZED DRUG - REMARK] OP SCH ×2 (10:05→19:48)
[2022-05-15] MEDS: POLYETHYLENE (MIRALAX) 17 GM PACK PO SCH (10:05)
[2022-05-15] MEDS: HEPARIN SOD 5,000 UNIT/0.5 ML VIAL SQ SCH ×2 (10:05→19:49)
[2022-05-15] MEDS: FINASTERIDE 5 MG TAB PO SCH (10:06)
[2022-05-15] MEDS: CYANOCOBALAMIN (B-12) 500 MCG TABLET PO SCH (10:06)
[2022-05-15] MEDS: ADVANCED PROBIOTIC 1250 MG CAPSULE PO SCH (10:06)
[2022-05-15] MEDS: AMIODARONE 200 MG TAB PO SCH ×2 (10:06→17:32)
[2022-05-15] MEDS: THIAMINE HCL 100 MG TAB PO SCH (10:07)
[2022-05-15] MEDS: SODIUM CHLORIDE 0.65% NA SOLN 45 ML (OCEAN) SCH ×3 (10:07→19:48)
[2022-05-15] MEDS: ASPIRIN 81 MG ECTAB PO SCH (10:07)
[2022-05-15] MEDS: guaiFENesin 600 MG TABCR PO SCH ×2 (10:07→19:48)
--- NOTE | 2022-05-15 18:00 | Hospitalist Progress Note ---
Date of Service May 15, 2022 Assessment & Plan (1) Weakness: Plan: Patient is an 86 yr male with H/O COPD, HTN, dyslipidemia presented to ER with c/o increased weakness and was unable to complete flight of stairs with falls at home 2 weeks ago Generalized weakness Multiple falls H/O CVA --CT Head:There is no hemorrhage, mass effect, or evidence of acute territorial ischemia by CT criteria. TSH slightly low, normal Free T4 Vitamin B12 197, started supplementation folate wnl RPR negative PT OT Fall precautions Needs Rehab placement --awaiting on a bed. Seen by neurology, plan for outpatient EMG studies Increased Chronic Slurred Speech and Left UE weakness -- in the setting of new onset A fib -- Brain MRI: no acute CVA -- Aspirin on allergy list: GI bleeding - currently on ASA - cont. to monitor continue usual Lipitor Neurology consulted, -- Speech Therapist: easy to chew diet -- will need to transition to rehab/snf --speech is improved and is stable. 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 may not be a good candidate for director long term care anticoagulation due to recurrent falls (3) Fever: Plan: Fever in early May, early in the admission. Unclear source of infection Blood culture No growth to date UA not suggestive of UTI CTA showed no signs of consolidation. Respiratory panel negative repeat CXR: no pneumonia - procal negative -- resolved, monitor (4) Hypoxia: Plan: Elevated D-dimer Hypoxia Likely atelectasis H/O COPD --CTA:No pulmonary emboli identified although exam moderately compromised by respiratory motion, as described above. Cardiomegaly. Linear and groundglass opacity suggestive of atelectasis. No consolidation to suggest pneumonia. --Venous Doppler:No evidence of deep venous thrombus. Incentive spirometry Given history of COPD, titrate oxygen to keep saturations between 88 to 92% Saturating low 90s on room air 05/13: Off supplemental oxygen today, no cough or other respiratory symptoms at this time. (5) B12 deficiency: Plan: supplementation started this admission. (6) COPD (chronic obstructive pulmonary disease): Plan: chronic, stable, no signs of exacerbation. (7) Cerebrovascular disease, unspecified: Plan: H/O Suspected CVA in 09/2021 with residual dysphasia management per above Continue simvastatin (8) BPH (benign prostatic hyperplasia): Plan: chronic, stable, external catheter in place. Continue doxazosin, finasteride (9) DVT prophylaxis: Plan: Heparin DNR Dispo-Acute Rehab vs SNF awaiting bed availability Maritza Ferraro DO [facility] Hospitalist Admission and Anticipated Discharge Date Admission Date: May 01, 2022 Supervising Physician Co-Signing Physician Notes I have seen and discussed above patient with Dr Sandra Bryan, neurologyPt seen and examined. More awake and alert. No complaints denies numbness, back pain incontinence. Thought process slow. Atrophy of ulnar intrinsics, no other atrophy or fasc. Tongue dev mildly to r, no atrophy. No facial mask, Weakness of the bl ulnar intrinsics. LE at least 4/5, areflexic in the lowers, toes down, no vibration at knees, knee level to temp. Pt with probable cognitive impairment, will need to be explored more with family. 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 Dr Villatoro will take over service tomorr and attempt to ambulate Labs for tx causes neuropathy, B12, folate, tsh, rpr immunofixation. Will need ncv as outpt. MD Elizabeth Subjective Admitted for weakness, later developed new onset atrial fibrillation, currently stable and awaiting placement. doing well with PO intake denies any chest pain, SOB or other symptoms Review of Systems Review of Systems: All systems reviewed negative except as indicated above. Physical Exam Physical Exam: CONSTITUTIONAL: WNWD, vitals as above, generally well- appearing, NAD EYES: normal conjunctivae, no scleral icterus, ENT: external ear and nose normal, MMM NECK: trachea midline, RESPIRATORY: clear to auscultation bilaterally, no crackles, rales or wheezes, normal respiratory effort CARDIOVASCULAR: regular rate and rhythm, S1 and 2 heard without murmurs, gallops or rubs, no JVD, no peripheral edema CHEST: inspection of chest was normal GASTROINTESTINAL: soft, nontender, ND no guarding MUSCULOSKELETAL: Generalized weakness, nonfocal, head is normocephalic and atraumatic SKIN: warm and dry, NEUROLOGIC: CN 2-12 grossly intact, no sensory deficit, normal cognition, slurred speech at baseline and present today, he is able to articulate clearly today, no tremor PSYCHIATRIC: alert cooperative and oriented to person, place and time. Results & Data Results & Data ([facility]) Vital Signs (Past 12 Hours) Vital Signs Temp Pulse Resp BP BP Pulse Ox O2 Del Method 05/15/22 17:32 80 133/76 05/15/22 15:11 36.3 C L 77 16 126/73 92 Room Air 05/15/22 10:04 86 113/66 05/15/22 07:20 Room Air 05/15/22 07:16 37.3 C 77 18 137/72 91 Room Air Diagnostic Findings Chest X-Ray 05/15/22 07:00 XR chest 1V portable HISTORY: Hypoxia. COMPARISON: Chest 05/05/2022. FINDINGS: No pneumothorax. Bibasilar linear densities have slightly improved. This favors subsegmental atelectasis are scarring. Otherwise, no new focal lung consolidations to suggest pneumonia. No evidence for pulmonary edema. The heart remains mildly enlarged. There are calcifications within the aortic knob. Right tracheal deviation persists and is secondary to the patient's left thyroid goiter. There are old, healed left-sided rib fractures. There are low lung volumes. IMPRESSION: 1. Interval improvement in the bibasilar linear densities suggesting resolving atelectasis. 2. Stable mild cardiomegaly and low lung volumes. ACT 112: Negative or not required by law. Electronically signed by: Kyle Pathak M.D. 05/15/2022 8:01 AM Medications Administered Current Inpatient Medications Acetaminophen (Acetaminophen 325 Mg Tab) 650 mg PO Q4H PRN PRN Reason: Pain or Fever Stop: 05/31/22 16:02 Last Admin: 05/03/22 19:52 Dose: 650 mg Amiodarone HCl (Amiodarone 200 Mg Tab) 200 mg PO BIDM [facility] Stop: 06/06/22 16:59 Last Admin: 05/15/22 17:32 Dose: 200 mg Aspirin (Aspirin 81 Mg Ectab) 81 mg PO DAILY [facility] Stop: 06/06/22 11:29 Last Admin: 05/15/22 10:07 Dose: 81 mg Benzonatate (Benzonatate 100 Mg Capsule) 100 mg PO TID PRN PRN Reason: Cough Stop: 06/06/22 23:48 Last Admin: 05/09/22 00:34 Dose: 100 mg Cyanocobalamin (Cyanocobalamin (B-12) 500 Mcg Tablet) 1,000 mcg PO QAM [facility] Stop: 06/07/22 08:59 Last Admin: 05/15/22 10:06 Dose: 1,000 mcg Doxazosin Mesylate (Doxazosin Mesylate 4 Mg Tab) 8 mg PO HS [facility] Stop: 05/31/22 20:59 Last Admin: 05/05/22 20:46 Dose: 8 mg Finasteride (Finasteride 5 Mg Tab) 5 mg PO DAILY [facility] Stop: 06/01/22 08:59 Last Admin: 05/15/22 10:06 Dose: 5 mg Guaifenesin (Guaifenesin 600 Mg Tabcr) 600 mg PO Q12 [facility] Stop: 06/06/22 20:59 Last Admin: 05/15/22 10:07 Dose: 600 mg Heparin Sodium (Porcine) (Heparin Sod 5,000 Unit/0.5 Ml Vial) 5,000 units SQ Q12 [facility] Stop: 05/31/22 20:59 Last Admin: 05/15/22 10:05 Dose: 5,000 units Promethazine HCl 12.5 mg/ (Sodium Chloride) 50.5 mls @ 202 mls/hr IV Q6H PRN PRN Reason: Nausea And Vomiting Stop: 06/05/22 06:46 Lactobacillus Acidophilus (Advanced Probiotic 1250 Mg Capsule) 2 cap PO DAILY [facility] Stop: 06/08/22 12:59 Last Admin: 05/15/22 10:06 Dose: 2 cap Olopatadine 0.1% -- (Non-Form Pt Own Med) 1 ea OP BID [facility] Stop: 06/06/22 21:59 Last Admin: 05/15/22 10:05 Dose: 1 drops Polyethylene Glycol (Polyethylene (Miralax) 17 Gm Pack) 17 gm PO DAILY [facility] Stop: 06/01/22 08:59 Last Admin: 05/15/22 10:05 Dose: 17 gm Simvastatin (Simvastatin 20 Mg Tab) 20 mg PO HS [facility] Stop: 05/31/22 20:59 Last Admin: 05/14/22 21:11 Dose: 20 mg Sodium Chloride (Sodium Chloride 0.65% Na Soln 45 Ml ([place])) 2 sprays NA TID [facility] Stop: 06/10/22 20:59 Last Admin: 05/15/22 14:22 Dose: 2 sprays Thiamine HCl (Thiamine Hcl 100 Mg Tab) 100 mg PO QAM [facility] Stop: 06/07/22 08:59 Last Admin: 05/15/22 10:07 Dose: 100 mg (1) COPD (chronic obstructive pulmonary disease) COPD type: unspecified COPD Qualified Code(s): J44.9 - Chronic obstructive pulmonary disease, unspecified
[2022-05-15] MEDS: SIMVASTATIN 20 MG TAB PO SCH (19:48)
[2022-05-16] MEDS: ACETAMINOPHEN 325 MG TAB PO PRN (01:32)
[2022-05-16] MEDS: AMIODARONE 200 MG TAB PO SCH ×2 (09:41→17:17)
[2022-05-16] MEDS: ADVANCED PROBIOTIC 1250 MG CAPSULE PO SCH (09:41)
[2022-05-16] MEDS: CYANOCOBALAMIN (B-12) 500 MCG TABLET PO SCH (09:41)
[2022-05-16] MEDS: ASPIRIN 81 MG ECTAB PO SCH (09:41)
[2022-05-16] MEDS: FINASTERIDE 5 MG TAB PO SCH (09:41)
[2022-05-16] MEDS: THIAMINE HCL 100 MG TAB PO SCH (09:41)
[2022-05-16] MEDS: guaiFENesin 600 MG TABCR PO SCH ×2 (09:42→19:44)
[2022-05-16] MEDS: [UNRECOGNIZED DRUG - REMARK] OP SCH ×2 (09:50→19:44)
[2022-05-16] MEDS: SODIUM CHLORIDE 0.65% NA SOLN 45 ML (OCEAN) SCH ×4 (09:53→21:00)
[2022-05-16] MEDS: HEPARIN SOD 5,000 UNIT/0.5 ML VIAL SQ SCH ×2 (09:54→19:45)
[2022-05-16] MEDS: POLYETHYLENE (MIRALAX) 17 GM PACK PO SCH (10:01)
--- NOTE | 2022-05-16 12:21 | Hospitalist Progress Note ---
Date of Service May 16, 2022 Assessment & Plan (1) Weakness: Plan: Patient is an 86 yr male with H/O COPD, HTN, dyslipidemia presented to ER with c/o increased weakness and was unable to complete flight of stairs with falls at home 2 weeks ago Generalized weakness Multiple falls H/O CVA --CT Head:There is no hemorrhage, mass effect, or evidence of acute territorial ischemia by CT criteria. TSH slightly low, normal Free T4 Vitamin B12 197, started supplementation folate wnl RPR negative PT OT Fall precautions Needs Rehab placement --awaiting on a bed. Seen by neurology, plan for outpatient EMG studies Increased Chronic Slurred Speech and Left UE weakness -- in the setting of new onset A fib -- Brain MRI: no acute CVA -- Aspirin on allergy list: GI bleeding - currently on ASA - cont. to monitor continue usual Lipitor Neurology consulted, -- Speech Therapist: easy to chew diet -- will need to transition to rehab/snf --speech is improved and is stable. 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 Unclear source of infection Blood culture No growth to date UA not suggestive of UTI CTA showed no signs of consolidation. Respiratory panel negative repeat CXR: no pneumonia - procal negative -- resolved, monitor (4) Hypoxia: Plan: Elevated D-dimer Hypoxia Likely atelectasis H/O COPD --CTA:No pulmonary emboli identified although exam moderately compromised by respiratory motion, as described above. Cardiomegaly. Linear and groundglass opacity suggestive of atelectasis. No consolidation to suggest pneumonia. --Venous Doppler:No evidence of deep venous thrombus. Incentive spirometry Given history of COPD, titrate oxygen to keep saturations between 88 to 92% Saturating low 90s on room air 05/13: Off supplemental oxygen today, no cough or other respiratory symptoms at this time. (5) B12 deficiency: Plan: supplementation started this admission. (6) COPD (chronic obstructive pulmonary disease): Plan: chronic, stable, no signs of exacerbation. (7) Cerebrovascular disease, unspecified: Plan: H/O Suspected CVA in 09/2021 with residual dysphasia management per above Continue simvastatin (8) BPH (benign prostatic hyperplasia): Plan: chronic, stable, external catheter in place. Continue doxazosin, finasteride (9) DVT prophylaxis: Plan: Heparin DNR Dispo-Acute Rehab vs SNF awaiting bed availability. I did try to contact his Thais, by phone and left a message with a number to call back for an update. Maritza Ferraro [facility] and Anticipated Discharge Date Admission Date: May 01, 2022 Subjective Admitted for weakness, later developed new onset atrial fibrillation, currently stable and awaiting placement. doing well with PO intake still remains weak denies any chest pain, SOB or other symptoms Review of Systems Review of Systems: All systems were reviewed and negative except as indicated on subjective above. Physical Exam Physical Exam: CONSTITUTIONAL: WNWD, vitals as above, generally well- appearing, NAD EYES: normal conjunctivae, no scleral icterus, ENT: external ear and nose normal, MMM NECK: trachea midline, RESPIRATORY: clear to auscultation bilaterally, no crackles, rales or wheezes, normal respiratory effort CARDIOVASCULAR: regular rate and rhythm, S1 and 2 heard without murmurs, gallops or rubs, no JVD, no peripheral edema CHEST: inspection of chest was normal GASTROINTESTINAL: soft, nontender, ND no guarding MUSCULOSKELETAL: Generalized weakness, nonfocal, head is normocephalic and atraumatic SKIN: warm and dry, NEUROLOGIC: CN 2-12 grossly intact, no sensory deficit, normal cognition, slurred speech at baseline and present today, he is able to articulate clearly today, mild resting tremor noted in hands PSYCHIATRIC: alert cooperative and oriented to person, place and time. Results & Data Results & Data ([facility]) Vital Signs (Past 12 Hours) Vital Signs Temp Pulse Resp BP Pulse Ox O2 Del Method 05/16/22 07:35 36.4 C L 75 18 122/55 L 93 Room Air Medications Administered Current Inpatient Medications Acetaminophen (Acetaminophen 325 Mg Tab) 650 mg PO Q4H PRN PRN Reason: Pain or Fever Stop: 05/31/22 16:02 Last Admin: 05/16/22 01:32 Dose: 650 mg Amiodarone HCl (Amiodarone 200 Mg Tab) 200 mg PO BIDM [facility] Stop: 06/06/22 16:59 Last Admin: 05/16/22 09:41 Dose: 200 mg Aspirin (Aspirin 81 Mg Ectab) 81 mg PO DAILY [facility] Stop: 06/06/22 11:29 Last Admin: 05/16/22 09:41 Dose: 81 mg Benzonatate (Benzonatate 100 Mg Capsule) 100 mg PO TID PRN PRN Reason: Cough Stop: 06/06/22 23:48 Last Admin: 05/09/22 00:34 Dose: 100 mg Cyanocobalamin (Cyanocobalamin (B-12) 500 Mcg Tablet) 1,000 mcg PO QAM [facility] Stop: 06/07/22 08:59 Last Admin: 05/16/22 09:41 Dose: 1,000 mcg Doxazosin Mesylate (Doxazosin Mesylate 4 Mg Tab) 8 mg PO HS [facility] Stop: 05/31/22 20:59 Last Admin: 05/05/22 20:46 Dose: 8 mg Finasteride (Finasteride 5 Mg Tab) 5 mg PO DAILY [facility] Stop: 06/01/22 08:59 Last Admin: 05/16/22 09:41 Dose: 5 mg Guaifenesin (Guaifenesin 600 Mg Tabcr) 600 mg PO Q12 [facility] Stop: 06/06/22 20:59 Last Admin: 05/16/22 09:42 Dose: 600 mg Heparin Sodium (Porcine) (Heparin Sod 5,000 Unit/0.5 Ml Vial) 5,000 units SQ Q12 [facility] Stop: 05/31/22 20:59 Last Admin: 05/16/22 09:54 Dose: 5,000 units Promethazine HCl 12.5 mg/ (Sodium Chloride) 50.5 mls @ 202 mls/hr IV Q6H PRN PRN Reason: Nausea And Vomiting Stop: 06/05/22 06:46 Lactobacillus Acidophilus (Advanced Probiotic 1250 Mg Capsule) 2 cap PO DAILY [facility] Stop: 06/08/22 12:59 Last Admin: 05/16/22 09:41 Dose: 2 cap Olopatadine 0.1% -- (Non-Form Pt Own Med) 1 ea OP BID [facility] Stop: 06/06/22 21:59 Last Admin: 05/16/22 09:50 Dose: 2 drops Polyethylene Glycol (Polyethylene (Miralax) 17 Gm Pack) 17 gm PO DAILY [facility] Stop: 06/01/22 08:59 Last Admin: 05/16/22 10:01 Dose: 17 gm Simvastatin (Simvastatin 20 Mg Tab) 20 mg PO HS [facility] Stop: 05/31/22 20:59 Last Admin: 05/15/22 19:48 Dose: 20 mg Sodium Chloride (Sodium Chloride 0.65% Na Soln 45 Ml ([place])) 2 sprays NA TID [facility] Stop: 06/10/22 20:59 Last Admin: 05/16/22 09:53 Dose: 2 sprays Thiamine HCl (Thiamine Hcl 100 Mg Tab) 100 mg PO QAM [facility] Stop: 06/07/22 08:59 Last Admin: 05/16/22 09:41 Dose: 100 mg (1) COPD (chronic obstructive pulmonary disease) COPD type: unspecified COPD Qualified Code(s): J44.9 - Chronic obstructive pulmonary disease, unspecified
[2022-05-16] MEDS ORDERED: CALCIUM CARBONATE 500 MG CHEWABLE TAB PO PRN (12:43)
[2022-05-16] MEDS: SIMVASTATIN 20 MG TAB PO SCH (19:44)
[2022-05-16] MEDS ORDERED: bisacodyL 10 MG SUPP PR STA (20:39)
[2022-05-17] MEDS: ASPIRIN 81 MG ECTAB PO SCH (09:38)
[2022-05-17] MEDS: guaiFENesin 600 MG TABCR PO SCH ×2 (09:38→19:38)
[2022-05-17] MEDS: AMIODARONE 200 MG TAB PO SCH ×2 (09:38→17:02)
[2022-05-17] MEDS: FINASTERIDE 5 MG TAB PO SCH (09:39)
[2022-05-17] MEDS: CYANOCOBALAMIN (B-12) 500 MCG TABLET PO SCH (09:39)
[2022-05-17] MEDS: THIAMINE HCL 100 MG TAB PO SCH (09:39)
[2022-05-17] MEDS: ADVANCED PROBIOTIC 1250 MG CAPSULE PO SCH (09:39)
[2022-05-17] MEDS: [UNRECOGNIZED DRUG - REMARK] OP SCH ×2 (09:48→19:38)
[2022-05-17] MEDS: SODIUM CHLORIDE 0.65% NA SOLN 45 ML (OCEAN) SCH ×3 (09:52→19:37)
[2022-05-17] MEDS: HEPARIN SOD 5,000 UNIT/0.5 ML VIAL SQ SCH ×2 (09:52→19:40)
[2022-05-17] MEDS: POLYETHYLENE (MIRALAX) 17 GM PACK PO SCH (09:54)
--- NOTE | 2022-05-17 14:31 | Hospitalist Progress Note ---
Date of Service May 17, 2022 Assessment & Plan (1) Weakness: Plan: Patient is an 86 yr male with H/O COPD, HTN, dyslipidemia presented to ER with c/o increased weakness and was unable to complete flight of stairs with falls at home 2 weeks ago Generalized weakness Multiple falls H/O CVA --CT Head:There is no hemorrhage, mass effect, or evidence of acute territorial ischemia by CT criteria. TSH slightly low, normal Free T4 Vitamin B12 197, cont supplementation folate wnl RPR negative PT OT Fall precautions Needs Rehab placement --awaiting on a bed. Seen by neurology, plan for outpatient EMG studies Increased Chronic Slurred Speech and Left UE weakness -- in the setting of new onset A fib -- Brain MRI: no acute CVA -- Aspirin on allergy list: GI bleeding - currently on ASA - cont. to monitor continue usual Lipitor Neurology consulted, -- Speech Therapist: easy to chew diet -- will need to transition to rehab/snf --speech is improved and is stable. 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 Unclear source of infection Blood culture No growth to date UA not suggestive of UTI CTA showed no signs of consolidation. Respiratory panel negative repeat CXR: no pneumonia - procal negative -- resolved, monitor (4) Hypoxia: Plan: Elevated D-dimer Hypoxia Likely atelectasis H/O COPD --CTA:No pulmonary emboli identified although exam moderately compromised by respiratory motion, as described above. Cardiomegaly. Linear and groundglass opacity suggestive of atelectasis. No consolidation to suggest pneumonia. --Venous Doppler:No evidence of deep venous thrombus. Incentive spirometry Given history of COPD, titrate oxygen to keep saturations between 88 to 92% Saturating low 90s on room air 05/13: Off supplemental oxygen today, no cough or other respiratory symptoms at this time. (5) B12 deficiency: Plan: supplementation started this admission. (6) COPD (chronic obstructive pulmonary disease): Plan: chronic, stable, no signs of exacerbation. (7) Cerebrovascular disease, unspecified: Plan: H/O Suspected CVA in 09/2021 with residual dysphasia management per above Continue simvastatin (8) BPH (benign prostatic hyperplasia): Plan: chronic, stable, external catheter in place. Continue doxazosin, finasteride (9) DVT prophylaxis: Plan: Heparin DNR Dispo-Acute Rehab vs SNF awaiting bed availability. Updated his by phone on 05/16 successfully. [facility] and Anticipated Discharge Date Admission Date: May 01, 2022 Subjective Admitted for weakness, later developed new onset atrial fibrillation, currently stable and awaiting placement. doing well with PO intake still remains weak denies any symptoms today sleepy Review of Systems Review of Systems: All systems were reviewed and negative except as indicated on subjective above. Physical Exam Physical Exam: CONSTITUTIONAL: WNWD, vitals as above, generally well- appearing, NAD, sleepy EYES: normal conjunctivae, no scleral icterus, ENT: external ear and nose normal, MMM NECK: trachea midline, RESPIRATORY: clear to auscultation bilaterally, no crackles, rales or wheezes, normal respiratory effort CARDIOVASCULAR: regular rate and rhythm, S1 and 2 heard without murmurs, gallops or rubs, no JVD, no peripheral edema CHEST: inspection of chest was normal GASTROINTESTINAL: soft, nontender, ND no guarding MUSCULOSKELETAL: Generalized weakness, nonfocal, head is normocephalic and atraumatic SKIN: warm and dry, NEUROLOGIC: CN 2-12 grossly intact, no sensory deficit, normal cognition, slurred speech at baseline and present today, he is able to articulate clearly today, mild resting tremor noted in hands PSYCHIATRIC: alert cooperative and oriented to person, place and time. Results & Data Results & Data ([facility]) Vital Signs (Past 12 Hours) Vital Signs Temp Pulse Resp BP Pulse Ox O2 Del Method O2 Flow Rate 05/17/22 10:44 Nasal Cannula 2 05/17/22 07:39 36.7 C 74 12 112/64 91 Nasal Cannula 2 Medications Administered Current Inpatient Medications Acetaminophen (Acetaminophen 325 Mg Tab) 650 mg PO Q4H PRN PRN Reason: Pain or Fever Stop: 05/31/22 16:02 Last Admin: 05/16/22 01:32 Dose: 650 mg Amiodarone HCl (Amiodarone 200 Mg Tab) 200 mg PO BIDM [facility] Stop: 06/06/22 16:59 Last Admin: 05/17/22 09:38 Dose: 200 mg Aspirin (Aspirin 81 Mg Ectab) 81 mg PO DAILY [facility] Stop: 06/06/22 11:29 Last Admin: 05/17/22 09:38 Dose: 81 mg Benzonatate (Benzonatate 100 Mg Capsule) 100 mg PO TID PRN PRN Reason: Cough Stop: 06/06/22 23:48 Last Admin: 05/09/22 00:34 Dose: 100 mg Calcium Carbonate (Calcium Carbonate 500 Mg Chewable Tab) 1,000 mg PO Q8H PRN PRN Reason: Indigestion Stop: 06/15/22 12:42 Cyanocobalamin (Cyanocobalamin (B-12) 500 Mcg Tablet) 1,000 mcg PO QAM [facility] Stop: 06/07/22 08:59 Last Admin: 05/17/22 09:39 Dose: 1,000 mcg Doxazosin Mesylate (Doxazosin Mesylate 4 Mg Tab) 8 mg PO HS [facility] Stop: 05/31/22 20:59 Last Admin: 05/05/22 20:46 Dose: 8 mg Finasteride (Finasteride 5 Mg Tab) 5 mg PO DAILY [facility] Stop: 06/01/22 08:59 Last Admin: 05/17/22 09:39 Dose: 5 mg Guaifenesin (Guaifenesin 600 Mg Tabcr) 600 mg PO Q12 [facility] Stop: 06/06/22 20:59 Last Admin: 05/17/22 09:38 Dose: 600 mg Heparin Sodium (Porcine) (Heparin Sod 5,000 Unit/0.5 Ml Vial) 5,000 units SQ Q12 [facility] Stop: 05/31/22 20:59 Last Admin: 05/17/22 09:52 Dose: 5,000 units Promethazine HCl 12.5 mg/ (Sodium Chloride) 50.5 mls @ 202 mls/hr IV Q6H PRN PRN Reason: Nausea And Vomiting Stop: 06/05/22 06:46 Lactobacillus Acidophilus (Advanced Probiotic 1250 Mg Capsule) 2 cap PO DAILY [facility] Stop: 06/08/22 12:59 Last Admin: 05/17/22 09:39 Dose: 2 cap Olopatadine 0.1% -- (Non-Form Pt Own Med) 1 ea OP BID [facility] Stop: 06/06/22 21:59 Last Admin: 05/17/22 09:48 Dose: 1 drops Polyethylene Glycol (Polyethylene (Miralax) 17 Gm Pack) 17 gm PO DAILY [facility] Stop: 06/01/22 08:59 Last Admin: 05/17/22 09:54 Dose: Not Given Simvastatin (Simvastatin 20 Mg Tab) 20 mg PO HS [facility] Stop: 05/31/22 20:59 Last Admin: 05/16/22 19:44 Dose: 20 mg Sodium Chloride (Sodium Chloride 0.65% Na Soln 45 Ml ([place])) 2 sprays NA TID [facility] Stop: 06/10/22 20:59 Last Admin: 05/17/22 09:52 Dose: 2 sprays Thiamine HCl (Thiamine Hcl 100 Mg Tab) 100 mg PO QAM [facility] Stop: 06/07/22 08:59 Last Admin: 05/17/22 09:39 Dose: 100 mg (1) COPD (chronic obstructive pulmonary disease) COPD type: unspecified COPD Qualified Code(s): J44.9 - Chronic obstructive pulmonary disease, unspecified
[2022-05-17] MEDS: ACETAMINOPHEN 325 MG TAB PO PRN (19:37)
[2022-05-17] MEDS: SIMVASTATIN 20 MG TAB PO SCH (19:39)
[2022-05-18] MEDS: AMIODARONE 200 MG TAB PO SCH (10:44)
[2022-05-18] MEDS: ASPIRIN 81 MG ECTAB PO SCH (10:44)
[2022-05-18] MEDS: ADVANCED PROBIOTIC 1250 MG CAPSULE PO SCH (10:45)
[2022-05-18] MEDS: CYANOCOBALAMIN (B-12) 500 MCG TABLET PO SCH (10:45)
[2022-05-18] MEDS: THIAMINE HCL 100 MG TAB PO SCH (10:45)
[2022-05-18] MEDS: FINASTERIDE 5 MG TAB PO SCH (10:45)
[2022-05-18] MEDS: guaiFENesin 600 MG TABCR PO SCH (10:45)
[2022-05-18] MEDS: SODIUM CHLORIDE 0.65% NA SOLN 45 ML (OCEAN) SCH ×2 (10:55→14:05)
[2022-05-18] MEDS: HEPARIN SOD 5,000 UNIT/0.5 ML VIAL SQ SCH (10:55)
[2022-05-18] MEDS: [UNRECOGNIZED DRUG - REMARK] OP SCH (10:56)
[2022-05-18] MEDS: POLYETHYLENE (MIRALAX) 17 GM PACK PO SCH (10:59)
--- NOTE | 2022-05-18 13:53 | Discharge Summary ---
Date of Service May 18, 2022 Admission HPI Per Admitting Provider Patient is 86 y/o M with PMH COPD, HTN, dyslipidemia presented to ER with c/o weakness. History obtained from patient, and chart review. Patient is hard of hearing. Patient states that he felt weak today and couldn't stand up. reports walked down steps and couldn't finish walking down steps and had to sit down. He was unable to stand up on his own. called EMS. No fall today. 2 weeks ago fell stepping into house and fell taking dog outside. Patient just started using a cane past couple of days. states patient has been off balance. She reports he is very forgetful. reports had suspected stroke in 09/2021 and has residual dysphasia. He never had a formal workup. No change in his speech since that time. Chronic constipation. Has coughed two times today. Denies fever/chills, diaphoresis, N/V/D, STEVEN, dizziness, syncope, vision changes, neck pain, CP, SOB, orthopnea, palpitations, sore throat, choking, otalgia, rhinorrhea, abdominal pain, paresthesias, extremity edema, rashes, urinary sym ptoms. and patient are to be going [facility] within the next couple of weeks. Principal Diagnosis weakness with recurrent falls physical deconditioning B12 deficiency new onset atrial fibrillation fever-resolved hypoxia 2/2 atelectasis Discharge Exam CONSTITUTIONAL: WNWD, vitals as above, generally well-appearing, NAD, sleepy EYES: normal conjunctivae, no scleral icterus, ENT: external ear and nose normal, MMM NECK: trachea midline, RESPIRATORY: clear to auscultation bilaterally, no crackles, rales or wheezes, normal respiratory effort CARDIOVASCULAR: regular rate and rhythm, S1 and 2 heard without murmurs, gallops or rubs, no JVD, no peripheral edema CHEST: inspection of chest was normal GASTROINTESTINAL: soft, nontender, ND no guarding MUSCULOSKELETAL: Generalized weakness, nonfocal, head is normocephalic and atraumatic SKIN: warm and dry, NEUROLOGIC: CN 2-12 grossly intact, no sensory deficit, normal cognition, slurred speech at baseline and present today, he is able to articulate clearly today, mild resting tremor noted in hands PSYCHIATRIC: alert cooperative and oriented to person, place and time. Discharge Data Allergies Allergy/AdvReac Type Severity Reaction Status Date / Time aspirin AdvReac Intermediate "GI Verified 04/05/22 10:43 UPSET/BLEED A LONG TIME AGO" Consultations 05/01/22 11:59 ED Decision to Admit Stat 05/06/22 03:18 Consult Cardiology Routine 05/06/22 14:16 Consult Neurology Routine Ordered Studies Laboratory Results WBC 10.03 K/ul (4.8-10.8) 05/14/22 06:16 RBC 4.40 M/uL (4.63-6.08) L 05/14/22 06:16 Hgb 14.1 g/dl (14.0-18.0) 05/14/22 06:16 Hct 41.9 % (40.1-51.0) 05/14/22 06:16 MCV 95.2 fL (80.0-100.0) 05/14/22 06:16 MCH 32.0 pg (25.0-34.0) 05/14/22 06:16 MCHC 33.7 g/dL (32.0-36.0) 05/14/22 06:16 RDW Std Deviation 45.6 fL (36.4-46.3) 05/14/22 06:16 RDW Coeff of [place]one 13.1 % (11.5-14.5) 05/14/22 06:16 Plt Count 167 K/uL (130-400) 05/14/22 06:16 MPV 12.4 fL (9.4-12.4) 05/14/22 06:16 Immature Gran % (Auto) 0.3 % 05/06/22 03:44 Neut % (Auto) 78.0 % 05/06/22 03:44 Lymph % (Auto) 13.1 % 05/06/22 03:44 Taney % (Auto) 7.0 % 05/06/22 03:44 Eos % (Auto) 1.4 % 05/06/22 03:44 Baso % (Auto) 0.2 % 05/06/22 03:44 Neut # (Auto) 5.02 K/uL (1.4-6.5) 05/06/22 03:44 Lymph # (Auto) 0.84 K/uL (1.2-3.4) L 05/06/22 03:44 Taney # (Auto) 0.45 K/uL (0.11-0.59) 05/06/22 03:44 Eos # (Auto) 0.09 K/uL (0-0.5) 05/06/22 03:44 Baso # (Auto) 0.01 K/uL (0-0.2) 05/06/22 03:44 Immature Gran # (Auto) 0.02 K/uL (0.00-0.02) 05/06/22 03:44 Platelet Estimate Normal (Normal) 05/08/22 06:04 APTT 30.7 Seconds (21.0-31.0) 05/06/22 03:44 PTT Ratio 1.1 05/06/22 03:44 D-Dimer 6720 ug/L FEU (0-500) H* 05/01/22 09:38 Sodium 133 mmol/L (136-145) L 05/14/22 06:16 Potassium 4.2 mmol/L (3.5-5.1) 05/14/22 06:16 Chloride 102 mmol/L (98-107) 05/14/22 06:16 Carbon Dioxide 23 mmol/L (21-32) 05/14/22 06:16 Anion Gap 8 (3-11) 05/14/22 06:16 BUN 25 mg/dl (6-23) H 05/14/22 06:16 Creatinine 1.00 mg/dl (0.6-1.4) 05/14/22 06:16 Est Cr Clr Drug Dosing 65.0 ml/min 05/14/22 06:16 Est GFR ( Amer) 78.1 ml/min 05/14/22 06:16 Est GFR (Non-Af Amer) 67.4 ml/min 05/14/22 06:16 BUN/Creatinine Ratio 25.0 (10-20) H 05/14/22 06:16 Glucose 89 mg/dl (70-99(Fasting)) 05/14/22 06:16 POC Glucose 112 mg/dl (70-99) H 05/06/22 05:21 Lactate 0.7 mmol/L (0.4-2.0) 05/02/22 20:36 Calcium 8.7 mg/dl (8.5-10.1) 05/14/22 06:16 Phosphorus 2.5 mg/dl (2.5-4.9) 05/08/22 06:04 Magnesium 1.9 mg/dl (1.7-2.4) 05/08/22 06:04 Total Bilirubin 0.6 mg/dl (0.2-1.0) 05/01/22 09:38 AST 21 U/L (13-39) 05/01/22 09:38 ALT 13 U/L (7-52) 05/01/22 09:38 Alkaline Phosphatase 54 U/L (34-104) 05/01/22 09:38 Troponin I High Sens 42.9 pg/ml (0-20) H 05/02/22 04:00 Total Protein 6.8 gm/dl (6.0-8.3) 05/01/22 09:38 Albumin 3.7 gm/dl (3.4-5.0) 05/01/22 09:38 Globulin 3.1 gm/dl (2.5-4.0) 05/01/22 09:38 Albumin/Globulin Ratio 1.2 (0.9-2) 05/01/22 09:38 Vitamin B12 197 pg/ml (180-914) 05/03/22 05:19 Folate 16.68 ng/ml (>5.38) 05/08/22 06:04 Procalcitonin 0.09 ng/ml (0-0.5) 05/08/22 06:04 TSH 0.270 uIu/ml (0.300-4.500) L 05/01/22 09:38 Free T4 0.91 ng/dl (0.61-1.60) 05/01/22 09:38 Urine Color Yellow 05/01/22 13:29 Urine Appearance Clear (Clear) 05/01/22 13:29 Urine pH 6.0 (4.5-7.5) 05/01/22 13:29 Ur Specific [place] 1.022 (1.000-1.030) 05/01/22 13:29 Urine Protein Trace (Negative) H 05/01/22 13:29 Urine Glucose (UA) Negative (Negative) 05/01/22 13:29 Urine Ketones Trace (Negative) H 05/01/22 13:29 Urine Blood 2+ (Negative) H 05/01/22 13:29 Urine Nitrite Negative (Negative) 05/01/22 13:29 Urine Bilirubin Negative (Negative) 05/01/22 13:29 Urine Urobilinogen Negative (Negative) 05/01/22 13:29 Ur Leukocyte Esterase Negative (Negative) 05/01/22 13:29 Urine WBC (Auto) 1-5 /hpf (0-5) 05/01/22 13:29 Urine RBC (Auto) 10-30 /hpf (0-4) H 05/01/22 13:29 U Hyaline Cast (Auto) 1-5 /lpf (0-5) 05/01/22 13:29 U Epithel Cells (Auto) 0-5 /lpf (0-5) 05/01/22 13:29 Urine Bacteria (Auto) Negative (Negative) 05/01/22 13:29 RPR Nonreactive (Nonreactive) 05/08/22 06:04 Adenovirus (PCR) Not Detected (NotDetected) 05/03/22 15:40 B. pertussis DNA (PCR) Not Detected (NotDetected) 05/03/22 15:40 B.parapertussis DNA PCR Not Detected (NotDetected) 05/03/22 15:40 C. pneumoniae DNA (PCR) Not Detected (NotDetected) 05/03/22 15:40 Coronavirus OC43 (PCR) Not Detected (NotDetected) 05/03/22 15:40 Coronavirus HKU1 (PCR) Not Detected (NotDetected) 05/03/22 15:40 Coronavirus 229E (PCR) Not Detected (NotDetected) 05/03/22 15:40 SARS-CoV-2 (PCR) Not Detected (NotDetected) 05/03/22 15:40 Coronavirus NL63 (PCR) Not Detected (NotDetected) 05/03/22 15:40 Human Metapneumovir PCR Not Detected (NotDetected) 05/03/22 15:40 Influenza Type A (PCR) Not Detected (NotDetected) 05/03/22 15:40 Influenza Type B (PCR) Not Detected (NotDetected) 05/03/22 15:40 M. pneumoniae (PCR) Not Detected (NotDetected) 05/03/22 15:40 Parainfluenza 1 (PCR) Not Detected (NotDetected) 05/03/22 15:40 Parainfluenza 2 (PCR) Not Detected (NotDetected) 05/03/22 15:40 Parainfluenza 3 (PCR) Not Detected (NotDetected) 05/03/22 15:40 Parainfluenza 4 (PCR) Not Detected (NotDetected) 05/03/22 15:40 RSV (PCR) Not Detected (NotDetected) 05/03/22 15:40 Entero/Rhino (PCR) Not Detected (NotDetected) 05/03/22 15:40 SARS-CoV-2, RNA, NAAT NEGATIVE (NEGATIVE) 05/18/22 11:00 Impressions Chest CTA 05/01/22 13:40 CT ANGIOGRAPHY OF THE CHEST, PULMONARY EMBOLUS PROTOCOL CLINICAL HISTORY: Shortness of breath. Evaluate for pulmonary embolus. COMPARISON STUDY: Chest CT April 05, 2022. Chest radiograph performed earlier today. TECHNIQUE: Following IV administration of 118 mL of Optiray, helical axial images of the chest were obtained utilizing the pulmonary embolus protocol. Maximal intensity projections and sagittal and coronal reformats were viewed on an independent 3D workstation. IV contrast was administered without complication. Automated exposure control was utilized for the study. A dose lowering technique was utilized adhering to the principles of ALARA. CT DOSE: 640.44 mGy.cm FINDINGS: No pulmonary emboli are identified although the segmental and subsegmental pulmonary arteries within the lower lobes are suboptimally assessed due to respiratory motion. Moderate cardiomegaly is noted. No pericardial effusion. No thoracic lymphadenopathy is present. There is moderate plaque of the thoracic aorta. Extensive coronary artery calcification is present. Linear and groundglass opacities within lungs favor atelectasis. No consolidation to suggest pneumonia. No pneumothorax or pleural effusion is noted. A cyst within the upper pole of the right kidney is noted. There are gallstones within the gallbladder. IMPRESSION: 1. No pulmonary emboli identified although exam moderately compromised by respiratory motion, as described above. 2. Cardiomegaly. 3. Linear and groundglass opacity suggestive of atelectasis. No consolidation to suggest pneumonia. ACT 112: Negative or not required by law. Electronically signed by: Jean Kent M.D. 05/01/2022 6:44 PM Venous Doppler Study 05/02/22 09:08 US venous doppler LE BI CLINICAL HISTORY: Elevated D dimer, Fever TECHNIQUE: Bilateral lower extremity real-time compression venous ultrasound with Color Doppler imaging. Utilizing real-time ultrasonic imaging multiple real time high-resolution ultrasonic images with compression and noncompression maneuvers of the deep venous system in addition to color doppler imaging were performed from the common femoral vein through the proximal calf veins. COMPARISON: None available at the time of this dictation. FINDINGS: Currently there is normal compressibility of the deep venous system from the common femoral vein through the proximal calf veins. No superficial venous thrombosis is identified. Impression: No evidence of deep venous thrombus. ACT 112: Negative or not required by law. Electronically signed by: Damien Amezcua M.D. 05/02/2022 11:[address] 05/06/22 05:[address] OF THE BRAIN; CT ANGIOGRAM OF THE BRAIN; CT ANGIOGRAM OF THE NECK CLINICAL HISTORY: Slurred speech. Change in mental status. COMPARISON STUDY: CT of the brain dated 05/01/2022. TECHNIQUE: Unenhanced axial CT scan of the brain is performed. Subsequently, following the IV administration of 117 of Optiray 320, CT angiogram of the head and neck was performed from the aortic arch to the vertex. Images are reviewed in the axial, sagittal, and coronal planes. 3-D MIPS images are created and assessed. IV contrast was administered without complication. All measurements were calculated based on NASCET criteria. A dose lowering technique was utilized adhering to the principles of ALARA. CT DOSE: 1512.83 mGy.cm FINDINGS: Brain parenchyma: There is age-related involutional changes noting mild subcortical and periventricular microangiopathic disease. There is no hemorrhage, mass effect, or evidence of acute territorial ischemia by CT criteria. There is no evidence of enhancing mass lesion on the angiogram phase images. The ventricles, sulci, and cisterns are normal in configuration. Gomez- white matter differentiation is preserved. No extra-axial fluid collection is seen. Thoracic aorta: There is atherosclerotic calcification of the thoracic aorta. There is ectasia of the descending thoracic aorta which measures up to 3.6 cm. The aortic arch demonstrates standard 3-vessel anatomy. Right carotid arterial system: The right common carotid artery is widely patent, as are the right internal and external carotid arteries. Advanced atherosclerotic plaque is noted in the carotid bulb. Left carotid arterial system: The left common carotid artery is widely patent, as is the left external carotid artery. Advanced atherosclerotic plaque is seen the carotid bulb. There is approximately 50% focal stenosis of the proximal internal carotid artery, best seen on axial image #275. The remainder of the internal carotid artery is patent. Vertebral arteries: There is mild stenosis the origin of the right vertebral artery, and there is is moderate stenosis the origin of the left vertebral artery. The vertebral arteries are otherwise widely patent in the neck noting mild right-sided dominance. Subclavian arteries: Widely patent bilaterally. Intracranial vasculature: There is atherosclerotic calcification of the cavernous carotid and vertebral arteries. The robinson of Nicholas is developmentally complete with large bilateral posterior communicating arteries. The internal carotid arteries are patent at the skull base, as are the anterior and middle cerebral arteries bilaterally. The vertebrobasilar system and posterior cerebral arteries are widely patent. The right vertebral artery is dominant. There is no aneurysm, high-grade stenosis, or focal vessel cut off seen throughout the intracranial circulation. Jugular veins: Patent bilaterally. Dural sinuses: Patent. Lung apices: A right pleural effusion is partially visualized. Upper lobe lung parenchyma is otherwise clear as imaged. Soft tissues: The visualized pharyngeal soft tissues are normal in appearance noting angiographic phase technique. The oropharyngeal airway appears widely patent. The thyroid gland is enlarged and heterogeneous consistent with goiter. This causes rightward deviation and mild narrowing of the trachea. The salivary glands are normal in appearance. No cervical lymphadenopathy is seen. Skeletal structures: The skeletal structures are osteopenic. The calvarium appears intact. The cervical spine is maintained noting multilevel spondylosis. No lytic or blastic lesion is seen. Orbits: The bony orbits are intact. Orbital contents are normal as visualized note bilateral ocular lens implants. Sinuses and mastoids: There is mild mucosal thickening within the maxillary antra. The remaining paranasal sinuses are clear. The mastoid air cells are well pneumatized. IMPRESSION: 1. There is no hemorrhage, mass effect, or evidence of acute territorial ischemia by CT criteria. 2. Unremarkable CT angiogram of the brain. 3. There is approximately 50% focal stenosis of the proximal left internal carotid artery. 4. There is mild stenosis the origin of the right vertebral artery and moderate stenosis at the origin of the left vertebral artery. 5. A right pleural effusion is partially visualized. 6. Additional findings as above. ACT 112: Negative or not required by law. Electronically signed by: Prince Hogue M.D. 05/06/2022 7:10 AM Head CTA 05/06/22 05:[address] OF THE BRAIN; CT ANGIOGRAM OF THE BRAIN; CT ANGIOGRAM OF THE NECK CLINICAL HISTORY: Slurred speech. Change in mental status. COMPARISON STUDY: CT of the brain dated 05/01/2022. TECHNIQUE: Unenhanced axial CT scan of the brain is performed. Subsequently, following the IV administration of 117 of Optiray 320, CT angiogram of the head and neck was performed from the aortic arch to the vertex. Images are reviewed in the axial, sagittal, and coronal planes. 3-D MIPS images are created and assessed. IV contrast was administered without complication. All measurements were calculated based on NASCET criteria. A dose lowering technique was utilized adhering to the principles of ALARA. CT DOSE: 1512.83 mGy.cm FINDINGS: Brain parenchyma: There is age-related involutional changes noting mild subcortical and periventricular microangiopathic disease. There is no hemorrhage, mass effect, or evidence of acute territorial ischemia by CT criteria. There is no evidence of enhancing mass lesion on the angiogram phase images. The ventricles, sulci, and cisterns are normal in configuration. Gomez- white matter differentiation is preserved. No extra-axial fluid collection is seen. Thoracic aorta: There is atherosclerotic calcification of the thoracic aorta. There is ectasia of the descending thoracic aorta which measures up to 3.6 cm. The aortic arch demonstrates standard 3-vessel anatomy. Right carotid arterial system: The right common carotid artery is widely patent, as are the right internal and external carotid arteries. Advanced atherosclerotic plaque is noted in the carotid bulb. Left carotid arterial system: The left common carotid artery is widely patent, as is the left external carotid artery. Advanced atherosclerotic plaque is seen the carotid bulb. There is approximately 50% focal stenosis of the proximal internal carotid artery, best seen on axial image #275. The remainder of the i nternal carotid artery is patent. Vertebral arteries: There is mild stenosis the origin of the right vertebral artery, and there is is moderate stenosis the origin of the left vertebral artery. The vertebral arteries are otherwise widely patent in the neck noting mild right-sided dominance. Subclavian arteries: Widely patent bilaterally. Intracranial vasculature: There is atherosclerotic calcification of the cavernous carotid and vertebral arteries. The robinson of [place] is developmentally complete with large bilateral posterior communicating arteries. The internal carotid arteries are patent at the skull base, as are the anterior and middle cerebral arteries bilaterally. The vertebrobasilar system and posterior cerebral arteries are widely patent. The right vertebral artery is dominant. There is no aneurysm, high-grade stenosis, or focal vessel cut off seen throughout the intracranial circulation. Jugular veins: Patent bilaterally. Dural sinuses: Patent. Lung apices: A right pleural effusion is partially visualized. Upper lobe lung parenchyma is otherwise clear as imaged. Soft tissues: The visualized pharyngeal soft tissues are normal in appearance noting angiographic phase technique. The oropharyngeal airway appears widely patent. The thyroid gland is enlarged and heterogeneous consistent with goiter. This causes rightward deviation and mild narrowing of the trachea. The salivary glands are normal in appearance. No cervical lymphadenopathy is seen. Skeletal structures: The skeletal structures are osteopenic. The calvarium appears intact. The cervical spine is maintained noting multilevel spondylosis. No lytic or blastic lesion is seen. Orbits: The bony orbits are intact. Orbital contents are normal as visualized note bilateral ocular lens implants. Sinuses and mastoids: There is mild mucosal thickening within the maxillary antra. The remaining paranasal sinuses are clear. The mastoid air cells are well pneumatized. IMPRESSION: 1. There is no hemorrhage, mass effect, or evidence of acute territorial ischemia by CT criteria. 2. Unremarkable CT angiogram of the brain. 3. There is approximately 50% focal stenosis of the proximal left internal carotid artery. 4. There is mild stenosis the origin of the right vertebral artery and moderate stenosis at the origin of the left vertebral artery. 5. A right pleural effusion is partially visualized. 6. Additional findings as above. ACT 112: Negative or not required by law. Electronically signed by: Prince Hogue M.D. 05/06/2022 7:10 AM Neck CTA 05/06/22 05:[address] OF THE BRAIN; CT ANGIOGRAM OF THE BRAIN; CT ANGIOGRAM OF THE NECK CLINICAL HISTORY: Slurred speech. Change in mental status. COMPARISON STUDY: CT of the brain dated 05/01/2022. TECHNIQUE: Unenhanced axial CT scan of the brain is performed. Subsequently, following the IV administration of 117 of Optiray 320, CT angiogram of the head and neck was performed from the aortic arch to the vertex. Images are reviewed in the axial, sagittal, and coronal planes. 3-D MIPS images are created and assessed. IV contrast was administered without complication. All measurements were calculated based on NASCET criteria. A dose lowering technique was utilized adhering to the principles of ALARA. CT DOSE: 1512.83 mGy.cm FINDINGS: Brain parenchyma: There is age-related involutional changes noting mild subcortical and periventricular microangiopathic disease. There is no hemorrhage, mass effect, or evidence of acute territorial ischemia by CT criteria. There is no evidence of enhancing mass lesion on the angiogram phase images. The ventricles, sulci, and cisterns are normal in configuration. Gomez- white matter differentiation is preserved. No extra-axial fluid collection is seen. Thoracic aorta: There is atherosclerotic calcification of the thoracic aorta. There is ectasia of the descending thoracic aorta which measures up to 3.6 cm. The aortic arch demonstrates standard 3-vessel anatomy. Right carotid arterial system: The right common carotid artery is widely patent, as are the right internal and external carotid arteries. Advanced atherosclerotic plaque is noted in the carotid bulb. Left carotid arterial system: The left common carotid artery is widely patent, as is the left external carotid artery. Advanced atherosclerotic plaque is seen the carotid bulb. There is approximately 50% focal stenosis of the proximal internal carotid artery, best seen on axial image #275. The remainder of the internal carotid artery is patent. Vertebral arteries: There is mild stenosis the origin of the right vertebral artery, and there is is moderate stenosis the origin of the left vertebral artery. The vertebral arteries are otherwise widely patent in the neck noting mild right-sided dominance. Subclavian arteries: Widely patent bilaterally. Intracranial vasculature: There is atherosclerotic calcification of the cavernous carotid and vertebral arteries. The robinson of [place] is developmentally complete with large bilateral posterior communicating arteries. The internal carotid arteries are patent at the skull base, as are the anterior and middle cerebral arteries bilaterally. The vertebrobasilar system and posterior cerebral arteries are widely patent. The right vertebral artery is dominant. There is no aneurysm, high-grade stenosis, or focal vessel cut off seen throughout the intracranial circulation. Jugular veins: Patent bilaterally. Dural sinuses: Patent. Lung apices: A right pleural effusion is partially visualized. Upper lobe lung parenchyma is otherwise clear as imaged. Soft tissues: The visualized pharyngeal soft tissues are normal in appearance noting angiographic phase technique. The oropharyngeal airway appears widely patent. The thyroid gland is enlarged and heterogeneous consistent with goiter. This causes rightward deviation and mild narrowing of the trachea. The salivary glands are normal in appearance. No cervical lymphadenopathy is seen. Skeletal structures: The skeletal structures are osteopenic. The calvarium appears intact. The cervical spine is maintained noting multilevel spondylosis. No lytic or blastic lesion is seen. Orbits: The bony orbits are intact. Orbital contents are normal as visualized note bilateral ocular lens implants. Sinuses and mastoids: There is mild mucosal thickening within the maxillary antra. The remaining paranasal sinuses are clear. The mastoid air cells are well pneumatized. IMPRESSION: 1. There is no hemorrhage, mass effect, or evidence of acute territorial ischemia by CT criteria. 2. Unremarkable CT angiogram of the brain. 3. There is approximately 50% focal stenosis of the proximal left internal carotid artery. 4. There is mild stenosis the origin of the right vertebral artery and moderate stenosis at the origin of the left vertebral artery. 5. A right pleural effusion is partially visualized. 6. Additional findings as above. ACT 112: Negative or not required by law. Electronically signed by: Prince Hogue M.D. 05/06/2022 7:10 AM Brain MRI 05/06/22 10:00 MR brain wo con CLINICAL HISTORY: Slurred speech. Difficulty walking. Generalized weakness.. COMPARISON STUDY: CT brain from 05/06/2022 TECHNIQUE: Multiplanar multisequence images of the Brain were performed without IV contrast. Diffusion weighted imaging and ADC mapping was also performed. FINDINGS: Extra-axial space: There is no evidence for a subdural hematoma, There are no extra-axial fluid collections. Ventricles and cisterns: The ventricles are mildly dilated bilaterally. There is no evidence for midline shift or mass effect. Parenchyma: There is no evidence for an acute hemorrhage or infarct. No acute diffusion abnormalities are noted on diffusion weighted imaging or ADC mapping. There is normal gomez-white differentiation. There is moderate cerebral cortical atrophy present. The sulci and gyri appear normal without effacement. The midline structures are unremarkable. The posterior fossa structures appear normal. There is no evidence for mass lesion. Osseous structures: There is very mild mucosal thickening involving the carrera of the maxillary antra bilaterally. The remaining paranasal sinuses are well aerated. The mastoid air cells are well aerated. Soft tissues: No focal soft tissue abnormalities are identified. IMPRESSION: 1. No acute intracranial abnormalities. 2. Moderate cerebral cortical atrophy. ACT 112: Negative or not required by law. Electronically signed by: Antonio Boudreaux M.D. 05/06/2022 2:31 PM Chest X-Ray 05/15/22 07:00 XR chest 1V portable HISTORY: Hypoxia. COMPARISON: Chest 05/05/2022. FINDINGS: No pneumothorax. Bibasilar linear densities have slightly improved. This favors subsegmental atelectasis are scarring. Otherwise, no new focal lung consolidations to suggest pneumonia. No evidence for pulmonary edema. The heart remains mildly enlarged. There are calcifications within the aortic knob. Right tracheal deviation persists and is secondary to the patient's left thyroid goiter. There are old, healed left-sided rib fractures. There are low lung volumes. IMPRESSION: 1. Interval improvement in the bibasilar linear densities suggesting resolving atelectasis. 2. Stable mild cardiomegaly and low lung volumes. ACT 112: Negative or not required by law. Electronically signed by: Kyle Pathak M.D. 05/15/2022 8:01 AM Hospital Course (1) Weakness: (2) Atrial fibrillation, new onset: (3) Fever: (4) Hypoxia: (5) B12 deficiency: (6) COPD (chronic obstructive pulmonary disease): (7) Cerebrovascular disease, unspecified: Plan The patient is an 86-year-old man who presented to the ER with generalized weakness, unable to get out of bed. Symptoms appeared to be acute and the patient did not have any reported falls or trauma and no pain. He was noted to be hypoxic in the high 80s and had clear chest sounds with no signs of volume overload. Dehydration was present clinically. Blood work was obtained along with CT of the head and chest x-ray. The patient's blood work revealed mild leukopenia and thrombocytopenia with a normal H&H. Kidney function was unremarkable but with prerenal azotemia. He did receive IV fluids and troponin was elevated but thought to be demand ischemia. There were T wave inversions in the high lateral leads and the patient denied any chest pain or shortness of breath and there were no ST elevations at that time. His TSH was low but free T4 was normal. Urinalysis was present with no signs of infection. CT of the head was negative. Chest x-ray revealed atelectasis but without any obvious consolidation. Given his more profound weakness and associated hypoxia he was admitted to medicine. Further history revealed recurrent falls and he had been slated to go to [facility] within the next couple of weeks. He had an elevated D-dimer and a CTA of the chest was performed which ruled out pulmonary embolus. Again atelectasis was present without any consolidations to suggest pneumonia. 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 Vitamin B12 was checked and was less than 200 and he was started on replacement therapy. An echocardiogram was performed revealing mild concentric LVH with normal left ventricular wall motion and an ejection fraction of 60 to 65%. There was moderate mitral annular calcification without significant mitral vegetation and no mitral valve stenosis. Grade 1 diastolic dysfunction was noted. Approximately 4 days into his stay he was found to have a cough productive of yellowish to clear sputum with no concerns for aspiration. Repeat chest x-ray revealed a possible infiltrate in the right lower field and he was started on Zosyn. He was given 4 days of Zosyn, however repeat chest x-ray did not show any evidence of infection and this was stopped. On hospital day 5 he did develop new onset atrial fibrillation and was treated with intravenous digoxin and metoprolol. Heart rates were improved. Per cardiology no IV heparin was initiated pending neurology evaluation and further imaging with MRI of the brain. He was continued on low-dose IV Lopressor every 6 hours. Ultimately he was transitioned to amiodarone and IV metoprolol was discontinued. He was considered a poor anticoagulation candidate due to significant fall risk. Neuro logy was consulted for persistent weakness and more significantly because a stroke alert was called overnight when there was increased difficulty with swallowing and increased generalized weakness noted. A CTA of the head and neck revealed 50% focal stenosis in the left ICA and MRI of the brain revealed no acute findings. Aspirin 81 mg daily was added. He did have a history of GI bleed and aspirin is on his allergy list because of this, however, he tolerated this without issue during the hospital stay. Neurology will arrange an outpatient EMG for evaluation of lower extremity weakness. He was recommended to go to rehab and spent the last week of his hospital stay waiting for a bed. Amiodarone was initiated on 05/07/2022 at 200 mg twice daily and should continue that way for 14 days with reduction to 200 mg once daily after that. Low-dose aspirin should be continued. At time of discharge she was physically deconditioned but stable and he was requiring 2 L/min via nasal cannula likely secondary to atelectasis from prolonged bed rest and immobilization. He was discharged in stable condition with close primary care follow-up, follow-up with [facility] neurology for EMG studies and possible follow-up with [facility] cardiology regarding his new diagnosis of atrial fibrillation. Total Time Total Time Spent Total Time Spent (In Minutes): 60 Discharge Plan Discharge Items Patient Disposition: Transfer Group Home Fac Reason For Visit: WEAKNESS Discharge Diagnosis: weakness with recurrent falls physical deconditioning B12 deficiency new onset atrial fibrillation fever-resolved hypoxia 2/2 atelectasis Condition on Discharge: Good Activity: Resume your previous activity Non-emergency contact: Primary Care Provider Call non-emergency contact if: you have any medication questions and your symptoms worsen Follow-up/Referrals: Hakeem Mclaughlin MD [Primary Care Provider] - Diet: Heart Healthy Diet Comment: minced and moist Addtl Attending Provider Instructions: Please take all medications as instructed on discharge list below. Outpatient follow-up with [facility] Neurology was recommended to consider outpatient nerve conduction studies. Per cardiology please continue amiodarone 200 mg twice daily which was started on 05/07/2022. This dosing schedule to be continued for 14 days from that date then reduce to 200 mg once daily. Please continue low-dose aspirin, also. As your fall risk is increased at this time you are not a great candidate for chronic anticoagulation. While off chronic anticoagulation you are at higher risk of stroke in the setting of atrial fibrillation. This may need to be reassessed by your primary care doctor or with [facility] Cardiology as outpatient in the future. Please follow-up with your primary care provider within 1 week of discharge from the hospital to ensure you are still doing well after going home, review new medications, and reassess your level of hypoxia. It is expected that your oxygen needs should improve/resolve with increased strength and movement at rehab. If this does not occur, further investigation into your hypoxia may be warranted. It was a pleasure taking care of you! Please call if you have any questions or problems. You can reach a [facility] hospitalist on duty at [facility] 24 hours a day by calling [phone]. Take care of yourself. Maritza Ferraro, DO [facility] Hospitalist Pending Studies at Discharge: No Stand-Alone Forms: My [facility] Skilled Items Patient informed of condition?: Yes DNR: No Discharge Level of Care: Skilled Communicable Disease: No Discharge Prognosis: Stable Lines: None Urinary Catheter: No Medications and DC Order Prescriptions: New amiodarone 200 mg Tablet 200 mg PO DIRECTED Qty: 60 0RF Rx Instructions: Take twice daily until 05/21 then convert to once daily. aspirin 81 mg Tablet,Delayed Release (Dr/Ec) 81 mg PO DAILY Qty: 90 0RF cyanocobalamin (vitamin B-12) 500 mcg Tablet 1,000 mcg PO QAM Qty: 60 0RF Continued doxazosin 8 mg tablet 8 mg PO HS simvastatin 20 mg tablet 20 mg PO HS olopatadine 0.1 % drops 1 drp OPB BID polyethylene glycol 3350 17 gram/dose powder 17 g PO DAILY Rx Instructions: DISSOLVE 1 TABLESPOON INTO 8 OZ OF ORANGE JUICE DAILY finasteride 5 mg tablet 5 mg PO DAILY Discharge Orders: Discharge Order (Routine); Ordered 05/18/22 Ordered By: Maritza Ferraro Admission Data Admit Date/Time: 05/01/22 13:05 Attending Provider: Maritza Ferraro Admit Provider: Laney Izaguirre I. Primary Care Provider: Hakeem Mclaughlin Other Providers: Kolby [facility] ; [facility] ; Iain Covarrubias ; Papo Humphries ; Rodrigo Cummins ; Tc Maharaj ; Gavin Diop ; Chuck Kruger ; KevinDash echeverria ; Dimas Munoz ; Radha Hay ; Sandra Little ; Jo-Ann Neil ; Jeff Barlow ; Sandra Bryan ; Laney Izaguirre I. ; [facility] ; [facility]
== END 2022-05-18 14:58 ==
LOC: ED 09:03 → SUATTDRO 13:05 → 2N 13:05 → INTOOBSV 13:05 → 2N 14:52 → 2S 05-06 06:26 → 3N 05-13 16:05